=== PATIENT | male | born 1950 | race Caucasian/White ===

== ENCOUNTER → 2021-03-12 15:52 | Outpatient (CLI) | payer OTHER, MEDICAID, SELFPAY ==
--- NOTE | 2021-03-12 16:00 | DI.MRI.S_ITS ---
PROCEDURE: MR LUMBAR SPINE WO CON INDICATIONS: Low back pain, unspecified TECHNIQUE: Noncontrast sagittal T1 spin echo and T2 fast echo, sagittal STIR, axial T1 and T2 fast spin echo through the lumbar spine. In cases with scoliosis, additional coronal T2 fast spin echo may be performed. COMPARISON: [facility], , CT ABDOMEN/PELVIS WITH CONTRAST, 02/15/2005, 9:07. [facility], CR, XR LUMBAR SPINE 2 OR 3 VIEWS, 02/12/2021, 10:16. FINDINGS: Image quality: Motion artifact is present on multiple sequences, limiting areas of fine detail evaluation. Alignment and Curvature: There is minimal leftward curvature of lumbar spine with apex at L4. There is grade 1 retrolisthesis, 4 mm of L3 on L4 , 1-2 mm of L4 on L5 and grade 1 anterolisthesis of L5 on S1, 5 mm. Partially visualized posterior fusion is present from T11 through L1. Bone Marrow: Marrow is of normal overall signal. There is a focus of decreased signal within the mid and superior portion of the L1 vertebral body demonstrating heterogeneously increased T2 and STIR signal. This area was normal on the 2004 CT exam. Moderate reactive endplate changes are present at L4-5 and L5-S1 with Schmorl's nodes at the endplate. No acute vertebral body compression fractures. Spinal Cord: Conus medullaris terminates at the L1-L2 level. Visualized cord demonstrates normal signal and size. Paraspinous Soft Tissues: No paravertebral masses. Left renal cyst is noted. Discs: Moderate to severe desiccation is present throughout the lumbar spine most severe at L2-3. L1-L2: Mild disc bulge with [id number] spinal stenosis. Moderate left and minimal to mild right foraminal narrowing with facet and ligamentum flavum hypertrophy. L2-L3: Mild disc bulge with minimal canal narrowing. No foraminal narrowing with facet and ligamentum flavum hypertrophy. L3-L4: Mild disc bulge with moderate spinal stenosis. Moderate bilateral foraminal narrowing with facet and ligamentum flavum hypertrophy. L4-L5: Mild disc bulge with moderate spinal stenosis. Severe right and moderate left foraminal narrowing with facet and ligamentum flavum hypertrophy. L5-S1: Mild disc bulge with moderate to severe spinal stenosis. Severe bilateral foraminal narrowing, right greater than left with mild compression of the exiting L5 nerve roots bilaterally, right greater than left. Facet and ligamentum flavum hypertrophy are present. IMPRESSION: 1. Multilevel spinal stenosis most severe at L5-S1 secondary to disc bulge with contributing effect of facet/ligamentum flavum arthropathy. 2. Multilevel foraminal narrowing severe at L4-5 and L5-S1 secondary to facet arthropathy with contributing effect of anterior and retrolisthesis. 3. Focus of hypointense T1 and heterogeneous T2 signal at L1. While this is suspected to be a developing Schmorl's node, given proximity to endplate and disc space, it could also represent heterogeneous hemangioma. It is considered indeterminate. Contrast study is recommended for further evaluation. Dictated by: Nicolasa William M.D. on 03/13/2021 at 12:02 Approved by: Nicolasa William M.D. on 03/13/2021 at 12:13
== END ==
PROVIDERS: Family Provider Family Medicine; Referring Provider Orthopaedic Surgery; Visit Provider Orthopaedic Surgery
DX: M48.061 Spinal stenosis, lumbar region without neurogenic claudication (principal); M48.07 Spinal stenosis, lumbosacral region; M47.816 Spondylosis without myelopathy or radiculopathy, lumbar region; M47.817 Spondylosis without myelopathy or radiculopathy, lumbosacral region; M51.26 Other intervertebral disc displacement, lumbar region
CPT/HCPCS: 72148

== ENCOUNTER 2021-04-11 12:00 | Emergency (ER) | payer OTHER, MEDICAID, SELFPAY ==
[2021-04-11] VITALS (7 sets, daily range): BP systolic 127–147; BP diastolic 74–86; PULSE 71–81; RESP 12–23; TEMP 36.2; O2SAT 97–99
--- NOTE | 2021-04-11 12:27 | DI.RAD.S_ITS ---
PROCEDURE: XR RIBS LT MIN 3V W CXR1V INDICATIONS: fall rib pain TECHNIQUE: Two views of the left ribs were acquired, along with a single view chest. COMPARISON: [facility], , XR CXR 2V, 02/16/2006, 10:38. FINDINGS: Surgical changes and devices: Extensive postsurgical changes are redemonstrated status post fixation in the thoracolumbar spine. Bones and chest wall: There is a mildly displaced fracture of the left lateral 9th rib and probable fracture of the adjacent 10th rib. No suspicious bony lesions. Overlying soft tissues appear unremarkable. Lungs and pleura: No pleural effusions or pneumothorax. Lungs appear clear. Mediastinum: Mediastinal contours appear normal. Heart size is normal. IMPRESSION: 1. Mildly displaced fractures of the left lateral 9th and 10th ribs. Dictated by: Efra Dai M.D. on 04/11/2021 at 13:09 Approved by: Efra Dai M.D. on 04/11/2021 at 13:11
--- NOTE | 2021-04-11 12:27 | DI.RAD.S_ITS ---
PROCEDURE: XR ANKLE RT MIN 3V INDICATIONS: fall swelling TECHNIQUE: 3 views of the ankle were acquired. COMPARISON: [facility], , ANKLE 3 VIEWS RIGHT, 08/15/2006, 9:20. FINDINGS: Bones: No definite acute fracture or dislocation. Extensive postsurgical changes are redemonstrated status post fusion of the tibiotalar joint as well as partial fusion of the distal tibial fibular syndesmosis and subtalar joint. Surgical screws appear unchanged in position without new suspicious lucencies. Soft tissues: There is new periarticular soft tissue swelling. Achilles tendon appears intact. IMPRESSION: 1. No definite acute fracture or dislocation. 2. Extensive postsurgical changes and fusion of the ankle as described. Dictated by: Efra Dai M.D. on 04/11/2021 at 12:22 Approved by: Efra Dai M.D. on 04/11/2021 at 12:31
--- NOTE | 2021-04-11 12:27 | DI.CT.S_ITS ---
PROCEDURE: CT HEAD/BRAIN WO CON INDICATIONS: frequent falls TECHNIQUE: Noncontrast 4.5 mm thick angled axial sections acquired from the foramen magnum to the vertex, with coronal and sagittal reformats. For radiation dose reduction, the following was used: automated exposure control, adjustment of mA and/or kV according to patient size. COMPARISON: None. FINDINGS: Image quality: Excellent. CSF spaces: Basal cisterns are patent. No extra-axial fluid collections. The ventricles are symmetric in size and shape. There is mild cerebral volume loss, with resultant ventricular and sulcal prominence. Brain: No intracranial hemorrhage, mass, or mass effect. There are subcortical, periventricular and deep white matter hypodensities consistent with mild a chronic small vessel ischemic changes. The costello-white matter junction appears preserved. There is intracranial internal carotid artery atherosclerosis. Skull and face: Calvarium and visualized facial bones appear intact, without suspicious lesions. Sinuses: Visualized sinuses demonstrate mild mucosal thickening in the right maxillary sinus. Mastoid air cells are clear. IMPRESSION: 1. No acute intracranial abnormality. 2. Mild chronic white matter small vessel ischemic changes and cerebral volume loss. Dictated by: Efra Dai M.D. on 04/11/2021 at 12:04 Approved by: Efra Dai M.D. on 04/11/2021 at 12:06
--- NOTE | 2021-04-11 12:27 | DI.RAD.S_ITS ---
PROCEDURE: XR FOOT RT MIN 3V INDICATIONS: swelling injury TECHNIQUE: 3 views of the foot were acquired. COMPARISON: [facility], , ANKLE 3 VIEWS RIGHT, 08/15/2006, 9:20. [facility], CR, XR ANKLE RT MIN 3V, 04/11/2021, 12:52. FINDINGS: Bones: No definite acute fractures or dislocations. There is severe degeneration of the 1st metatarsophalangeal joint with joint space narrowing, subchondral sclerosis, osteophytosis, and subchondral cystic changes. However bony irregularity is demonstrated along the articular surface of the 1st metatarsal head. This may reflect sequelae of osteoarthritic changes but an inflammatory arthropathy or septic joint cannot be excluded. Limited evaluation of the ankle redemonstrates postsurgical changes consistent with prior fusion of the tibiotalar joint. Partial fusion also demonstrated at the distal tibiofibular syndesmosis and along the subtalar joint. There is an area of sclerosis within the distal tibial shaft which appears increased compared to the previous study and may reflect a bone infarct. Soft tissues: There is periarticular soft tissue swelling at the 1st metatarsophalangeal joint. No suspicious soft tissue calcifications. IMPRESSION: 1. No definite acute fracture or dislocation. 2. 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 Bony irregularity along the articular surface of the 1st metatarsal head raises the possibility of an inflammatory arthropathy or septic arthritis. Recommend correlation clinically. 3. Extensive postsurgical changes of the ankle redemonstrated. Dictated by: Efra Dai M.D. on 04/11/2021 at 13:03 Approved by: Efra Dai M.D. on 04/11/2021 at 13:09
--- NOTE | 2021-04-11 12:31 | ED_ITS ---
HPI - Fall General Chief Complaint: Trauma Stated Complaint: RT ANKLE PAIN POST FALL Time Seen by Provider: 04/11/21 12:21 Source: patient Mode of arrival: Wheelchair History of Present Illness HPI Narrative: Patient is a 70-year-old male who presents after fall. He states he fell last night getting into his 5th wheel he has significant right ankle pain and swelling. He is not sure exactly how that happened. He fell 2 nights ago as w ell landing on his left ribs. His ribs hurt as well. Hurts every time he breathes or moves. No chest pain. He denies any dizziness. He is not sure if he hit his head. He is not on any anti-platelet or anticoagulation medication in fact he does not go to the doctor. He denies any alcohol use or drug use except for marijuana. Related Data Previous Rx's Medication Instructions Recorded hydrocodone 5 mg-acetaminophen 325 1 tab PO Q6H PRN #10 tab 04/11/21 mg tablet Allergies Allergy/AdvReac Type Severity Reaction Status Date / Time No Known Drug Allergies Allergy Verified 04/11/21 12:07 Review of Systems Constitutional Constitutional: Denies body ache(s), Denies chills and Denies lethargy ENT Ears, Nose, Mouth, and Throat: Denies vertigo and Denies dizziness Cardiovascular Cardiovascular: Denies chest pain, Denies chest pain at rest and Denies irregular heart rhythm Respiratory Respiratory: Denies cough and Reports pain on inspiration Musculoskeletal Musculoskeletal: Reports system reviewed and no additional complaints, except as documented Integumentary/Breasts Skin/Breast: Denies erythema, Denies rash and Reports wounds (Contusion left rib) Neurologic Neurologic: Denies vertigo and Denies dizziness Patient History Social History Smoking Status: Former smoker Smoking Status: Former smoker alcohol intake frequency: 0-2 drinks per day Substance Use Type: marijuana Exam Initial Vital Signs Initial Vital Signs: Vital Signs Temperature 97.1 F L 04/11/21 12:03 Pulse Rate 77 04/11/21 12:03 Respiratory Rate 16 04/11/21 12:03 Blood Pressure 147/74 H 04/11/21 12:03 Pulse Oximetry 99 04/11/21 12:03 GENERAL: Alert 70-year-old male HEENT: Head atraumatic,EOMI, pupils reactive, face symmetric, moist mucous membranes CARDIOVASCULAR: Regular rate and rhythm without murmurs, rubs or gallops. RESPIRATORY: Breath sounds equal bilaterally, no wheezes rales or rhonchi. Left lower lateral ribs contusion no paradoxical movement tender to touch touch ABDOMEN: Soft, nontender. Normoactive bowel sounds all 4 quadrants. No guarding or rebound. : No CVA tenderness EXTREMITIES: Normal range of motion, no clubbing or edema. Neurovascularly intact. Right lower extremity ankle and foot significantly swollen very tender to touch distal pedal pulse intact. Knee in are stable non tender. NEUROLOGICAL: Alert and oriented x4.Normal gait and speech. 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 Scores GCS [place] coma scale eye opening: Spontaneous [place] coma scale verbal response: Orientated [place] coma scale motor response: Obey commands Macho coma scale total score: 15 Course Orders Ordered: ED Orders 04/11/21 12:27 CT head/brain wo con Stat XR ankle RT min 3V Stat XR foot RT min 3V Stat XR ribs LT min 3V w CXR1V Stat 04/11/21 12:28 EKG-12 Lead Stat 04/11/21 13:35 Complete Blood Count AUTO DIFF Stat Comprehensive Metabolic Panel Stat ETOH [Ethanol (ETOH)] Stat Lipase Stat Troponin & CK Cardiac Panel Stat 04/11/21 13:46 Lactate (Lactic Acid) Stat Partial Thromboplastin Time Stat Prothrombin Time INR Stat Discontinued Medications Ketorolac Tromethamine (Ketorolac 30 Mg/Ml Vial) 15 mg IV NOW ONE Stop: 04/11/21 12:28 Last Admin: 04/11/21 14:13 Dose: 15 mg Documented by: ROCKOR Vital Signs Vital signs: Vital Signs - 8 hr 04/11/21 12:03 04/11/21 13:26 04/11/21 13:30 Temperature 97.1 F L Pulse Rate 77 74 77 Respiratory Rate 16 13 12 Blood Pressure 147/74 H Pulse Oximetry 99 99 98 04/11/21 14:00 04/11/21 14:15 04/11/21 14:30 Temperature Pulse Rate 74 71 81 Respiratory Rate 12 13 23 Blood Pressure 127/76 134/86 Pulse Oximetry 97 99 99 04/11/21 14:45 Temperature Pulse Rate 73 Respiratory Rate 21 Blood Pressure 127/79 Pulse Oximetry 99 MDM - Fall Lab Data Result diagrams: 04/11/21 13:35 04/11/21 13:35 Labs: Lab Results 04/11/21 04/11/21 04/11/21 Range/Units 13:35 13:35 13:35 WBC 7.3 (4.5-11.0) X10^3/uL RBC 4.57 (4.5-5.9) X10^6/uL Hgb 13.1 L (13.5-17.5) g/dL Hct 38.7 L (41-53) % MCV 84.5 (80-100) fL MCH 28.7 (26-34) PG MCHC 33.9 (30-36) % RDW 14.1 (11.6-14.8) % Plt Count 301 (150-400) X10^3/uL Neut % (Auto) 52.8 (50-75) % Lymph % (Auto) 26.0 (25-40) % [place] % (Auto) 18.9 H (3-14) % Eos % (Auto) 1.8 L (2-4) % Baso % (Auto) 0.5 (0-2) % Neut # (Auto) 3800 (7647-0152) /uL Lymph # (Auto) 1900 (3521-6674) /uL [place] # (Auto) 1400 H (0-900) /uL Eos # (Auto) 100 (0-450) /uL Baso # (Auto) 0 (0-100) /uL PT (10.1-12.7) SECONDS INR (0.9-1.3) APTT (26.4-36.2) SECONDS Sodium 137 (137-145) mmol/L Potassium 4.3 (3.4-5.1) mmol/L Chloride 98 (98-107) mmol/L Carbon Dioxide 31 (22-32) mmol/L BUN 12 (9-20) mg/dL Creatinine 0.68 (0.66-1.25) mg/dL Estimated GFR > 60.0 (>60) mL/min BUN/Creatinine Ratio 17.6 (6-22) Glucose 95 (80-110) mg/dL Lactate (0.7-2.1) mmol/L Calcium 9.3 (8.4-10.2) mg/dL Total Bilirubin 0.4 (0.2-1.3) mg/dL AST 25 (17-59) IU/L ALT 15 (<50) IU/L Alkaline Phosphatase 71 (38-126) U/L Total Creatine Kinase 95 (55-170) U/L CK-MB (CK-2) TNP CK-MB (CK-2) Rel Index TNP Troponin I < 0.012 (0.01-0.034) ng/mL Total Protein 8.1 (6.3-8.2) g/dL Albumin 4.4 (3.5-5.0) g/dL Globulin 3.7 (1.7-4.1) g/dL Albumin/Globulin Ratio 1.2 (1.0-2.8) Lipase 26 (23-300) U/L Ethyl Alcohol < 10 ( - 10) mg/dL 04/11/21 04/11/21 Range/Units 13:46 13:46 WBC (4.5-11.0) X10^3/uL RBC (4.5-5.9) X10^6/uL Hgb (13.5-17.5) g/dL Hct (41-53) % MCV (80-100) fL MCH (26-34) PG MCHC (30-36) % RDW (11.6-14.8) % Plt Count (150-400) X10^3/uL Neut % (Auto) (50-75) % Lymph % (Auto) (25-40) % [place] % (Auto) (3-14) % Eos % (Auto) (2-4) % Baso % (Auto) (0-2) % Neut # (Auto) (9698-9056) /uL Lymph # (Auto) (4436-7542) /uL [place] # (Auto) (0-900) /uL Eos # (Auto) (0-450) /uL Baso # (Auto) (0-100) /uL PT 11.4 (10.1-12.7) SECONDS INR 1.0 (0.9-1.3) APTT 27 (26.4-36.2) SECONDS Sodium (137-145) mmol/L Potassium (3.4-5.1) mmol/L Chloride (98-107) mmol/L Carbon Dioxide (22-32) mmol/L BUN (9-20) mg/dL Creatinine (0.66-1.25) mg/dL Estimated GFR (>60) mL/min BUN/Creatinine Ratio (6-22) Glucose (80-110) mg/dL Lactate 1.2 (0.7-2.1) mmol/L Calcium (8.4-10.2) mg/dL Total Bilirubin (0.2-1.3) mg/dL AST (17-59) IU/L ALT (<50) IU/L Alkaline Phosphatase (38-126) U/L Total Creatine Kinase (55-170) U/L CK-MB (CK-2) CK-MB (CK-2) Rel Index Troponin I (0.01-0.034) ng/mL Total Protein (6.3-8.2) g/dL Albumin (3.5-5.0) g/dL Globulin (1.7-4.1) g/dL Albumin/Globulin Ratio (1.0-2.8) Lipase (23-300) U/L Ethyl Alcohol ( - 10) mg/dL Imaging Data CT scan - head: Radiologist's Impression: PROCEDURE:? CT HEAD/BRAIN WO CON ? INDICATIONS:? frequent falls ? TECHNIQUE:? Noncontrast 4.5 mm thick angled axial sections acquired from the foramen magnum to the vertex, with coronal and sagittal reformats.? For radiation dose reduction, the following was used:? automated exposure control, adjustment of mA and/or kV according to patient size.? ? COMPARISON:? None. ? FINDINGS:? Image quality:? Excellent.? ? CSF spaces:? Basal cisterns are patent.? No extra-axial fluid collections.? The ventricles are symmetric in size and shape.? There is mild cerebral volume loss, with resultant ventricular and sulcal prominence.? ? Brain:? No intracranial hemorrhage, mass, or mass effect.? There are subcortical, periventricular and deep white matter hypodensities consistent with mild a chronic small vessel ischemic changes.? The costello-white matter junction appears preserved.? There is intracranial internal carotid artery atherosclerosis.? ? Skull and face:? Calvarium and visualized facial bones appear intact, without suspicious lesions.? ? Sinuses:? Visualized sinuses demonstrate mild mucosal thickening in the right maxillary sinus.? Mastoid air cells are clear. ? IMPRESSION:? ? 1. No acute intracranial abnormality. ? 2. Mild chronic white matter small vessel ischemic changes and cerebral volume loss.? ? ? Dictated by: Efra Dai M.D. on 04/11/2021 at 12:04 ?? Extremity x-ray #1: Radiologist's Impression: PROCEDURE:? XR FOOT RT MIN 3V ? INDICATIONS:? swelling injury ? TECHNIQUE:? 3 views of the foot were acquired.? ? COMPARISON:? [facility], ANKLE 3 VIEWS RIGHT, 08/15/2006, 9:20.? [facility], XR ANKLE RT MIN 3V, 04/11/2021, 12:52. ? FINDINGS:? ? Bones:? No definite acute fractures or dislocations.? There is severe degeneration of the 1st metatarsophalangeal joint with joint space narrowing, subchondral sclerosis, osteophytosis, and subchondral cystic changes.? However bony irregularity is demonstrated along the articular surface of the 1st metatarsal head.? This may reflect sequelae of osteoarthritic changes but an inflammatory arthropathy or septic joint cannot be excluded.? Limited evaluation of the ankle redemonstrates postsurgical changes consistent with prior fusion of the tibiotalar joint.? Partial fusion also demonstrated at the distal tibiofibular syndesmosis and along the subtalar joint.? There is an area of sclerosis within the distal tibial shaft which appears increased compared to the previous study and may reflect a bone infarct. ? Soft tissues:? There is periarticular soft tissue swelling at the 1st metatarsophalangeal joint.? No suspicious soft tissue calcifications. ? IMPRESSION:? ? 1. No definite acute fracture or dislocation. ? 2. 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 Bony irregularity along the articular surface of the 1st metatarsal head raises the possibility of an inflammatory arthropathy or septic arthritis.? Recommend correlation clinically. ? 3. Extensive postsurgical changes of the ankle redemonstrated. ? ? Dictated by: Efra Dai M.D. on 04/11/2021 at 13:03 ? ? Extremity x-ray #2: Radiologist's Impression: PROCEDURE:? XR ANKLE RT MIN 3V ? INDICATIONS:? fall swelling ? TECHNIQUE:? 3 views of the ankle were acquired.? ? COMPARISON:? [facility], , ANKLE 3 VIEWS RIGHT, 08/15/2006, 9:20. ? FINDINGS:? ? Bones:? No definite acute fracture or dislocation.? Extensive postsurgical changes are redemonstrated status post fusion of the tibiotalar joint as well as partial fusion of the distal tibial fibular syndesmosis and subtalar joint.? Surgical screws appear unchanged in position without new suspicious lucencies. ? Soft tissues:? There is new periarticular soft tissue swelling.? Achilles tendon appears intact.? ? IMPRESSION:? ? 1. No definite acute fracture or dislocation. ? 2. Extensive postsurgical changes and fusion of the ankle as described. ? ? Dictated by: Efra Dai M.D. on 04/11/2021 at 12:22 ? ? Chest x-ray: Radiologist's Impression: PROCEDURE:? XR RIBS LT MIN 3V W CXR1V ? INDICATIONS:? fall rib pain ? TECHNIQUE:? Two views of the left ribs were acquired, along with a single view chest.? ? COMPARISON:? [facility], , XR CXR 2V, 02/16/2006, 10:38. ? FINDINGS:? ? Surgical changes and devices:? Extensive postsurgical changes are redemonstrated status post fixation in the thoracolumbar spine.? ? Bones and chest wall:? There is a mildly displaced fracture of the left lateral 9th rib and probable fracture of the adjacent 10th rib.? No suspicious bony lesions.? Overlying soft tissues appear unremarkable.? ? Lungs and pleura:? No pleural effusions or pneumothorax.? Lungs appear clear.? ? Mediastinum:? Mediastinal contours appear normal.? Heart size is normal.? ? IMPRESSION:? ? 1. Mildly displaced fractures of the left lateral 9th and 10th ribs. ? ? Dictated by: Efra Dai M.D. on 04/11/2021 at 13:09 ? ? ECG Data Interpretation: Sinus rhythm rate 67 ID interval 202 QRS [address] changes no T-wave inversions no priors to compare Q-wave noted in AVF and lead 3 MDM Narrative Medical decision making narrative: The patient's right foot and ankle are quite swollen however it appears that he has arthritis and previous surgery no complications found on x-rays. He is found to have rib fractures 9 and 10. Blood work is overall reassuring. He is taught about incentive spirometer by Respiratory. He is given pain control and crutches for discharge home. Discharge Plan Departure Patient Disposition: Home Clinical Impression: Closed rib fracture, Ankle sprain Instructions: Ankle Sprain, DI for Rib Fracture Activity Restrictions/Additional Instructions: *You have been diagnosed with rib fractures 9 and 10, right ankle sprain *What to do: You broke 2 ribs. Use incentive spirometer 10 times every hour to help prevent pneumonia. Use pillow for splinting. Use crutches as needed *Continue to take medications as directed [place] 1 tablet every 6 hours if needed for severe pain--> SENT TO [facility] *Follow up with your primary care provider in 2-3 days *Return to ER if you should have increasing pain, shortness of breath, numbness, tingling, weakness, recurrent falls, or any new, worsening or concerning symptoms CONTROLLED SUBSTANCE DISCHARGE (Narcotoic/benzodiazepine/Flexeril/Phenergan) 1. You have been prescribed narcotic medications, it does have acetaminophen/Tylenol/paracetamol in it, DO NOT TAKE MORE THAN 4,00mg in 24 hours of Tylenol. TRAMADOL DOES NOT CONTAIN TYLENOL 2. Please understand that we cannot provide further refills of narcotics, benzodiazepines or controlled substances through the ED and her pain management will need to be through your provider. 3. While on these medications you cannot drive or operate heavy machinery. 4. You cannot sign legal documents or perform any duties such as this. 5. As long as you're taking opiate pain medications he should also be taking a stool softener such as Colace, Dulcolax, MiraLAX or prune juice, to help avoid constipation. Prescriptions: New hydrocodone-acetaminophen 5-325 mg tablet 1 tab PO Q6H PRN (Reason: pain) Qty: 10 0RF Referrals: [facility] [Provider Group] [facility] [Outside]
[2021-04-11 13:43] LABS: Add Manual Diff / Slide Review NO; Basophils Absolute Auto 0 /uL (0-100); Basophils Percent Auto 0.5 % (0-2); Eosinophils Absolute Auto 100 /uL (0-450); Eosinophils Percent Auto 1.8 % (2-4); Hematocrit 38.7 % (41-53); Hemoglobin 13.1 g/dL (13.5-17.5); Lymphocytes Absolute Auto 1900 /uL (1100-4500); Mean Corpuscular HGB Conc 33.9 % (30-36); Mean Corpuscular Hemoglobin 28.7 PG (26-34); Mean Corpuscular Volume 84.5 fL (80-100); Monocytes Absolute Auto 1400 /uL (0-900); Monocytes Percent Auto 18.9 % (3-14); Neutrophils Absolute Auto 3800 /uL (1500-7000); Neutrophils Percent Auto 52.8 % (50-75); Platelet Count 301 X10^3/uL (150-400); Red Blood Cell Count 4.57 X10^6/uL (4.5-5.9); Red Cell Distribution Width 14.1 % (11.6-14.8); White Blood Cell Count 7.3 X10^3/uL (4.5-11.0)
[2021-04-11 13:56] LABS: Alanine Aminotransferase 15 IU/L (<50); Albumin 4.4 g/dL (3.5-5.0); Albumin Globulin Ratio 1.2 (1.0-2.8); Alkaline Phosphatase 71 U/L (38-126); Aspartate Aminotransferase 25 IU/L (17-59); BUN Creatinine Ratio 17.6 (6-22); Bilirubin Total 0.4 mg/dL (0.2-1.3); Blood Urea Nitrogen 12 mg/dL (9-20); Calcium 9.3 mg/dL (8.4-10.2); Carbon Dioxide 31 mmol/L (22-32); Chloride 98 mmol/L (98-107); Creatine Kinase 95 U/L (55-170); Estimated Glomerular Filt Rate > 60.0 mL/min (>60); Globulin 3.7 g/dL (1.7-4.1); Glucose 95 mg/dL (80-110); HEMOLYSIS < 15 (0-50); Lipase 26 U/L (23-300); Potassium 4.3 mmol/L (3.4-5.1); Sodium 137 mmol/L (137-145); Total Protein 8.1 g/dL (6.3-8.2)
[2021-04-11 14:04] LABS: Prothrombin Time 11.4 SECONDS (10.1-12.7)
[2021-04-11 14:06] LABS: PTT Partial Thromboplastin Tim 27 SECONDS (26.4-36.2)
[2021-04-11 14:08] LABS: Ethanol (ETOH) < 10 mg/dL; Troponin I < 0.012 ng/mL (0.01-0.034)
[2021-04-11 14:08] LABS: Lactate (Lactic Acid) 1.2 mmol/L (0.7-2.1)
[2021-04-11] MEDS: KETOROLAC 30 MG/ML VIAL 15 MG IV (14:13)
--- NOTE | 2021-04-11 14:45 | PC.NURSE ---
RT in room provided incentive spirometer and education, further education provided on splinting. Crutches adjusted to pt height and training provided.
== END 2021-04-11 14:55 | disposition home or self-care (01) ==
PROVIDERS: Emergency Provider Emergency Medicine; Family Provider Family Medicine
DX: S22.42XA Multiple fractures of ribs, left side, initial encounter for closed fracture (principal); S93.401A Sprain of unspecified ligament of right ankle, initial encounter; R03.0 Elevated blood-pressure reading, without diagnosis of hypertension; W18.30XA Fall on same level, unspecified, initial encounter; Z91.81 History of falling
CPT/HCPCS: 36415; 70450; 71101; 73610; 73630; 80053; 80320; 82550; 83605; 83690; 84484; 85025; 85610; 85730; 93005; 93010; 96374; 99284; 99285; J1885

== ENCOUNTER → 2021-11-26 14:18 | Outpatient (CLI) | payer OTHER, MEDICAID, SELFPAY ==
--- NOTE | 2021-11-26 | DI.MRI.S_ITS ---
PROCEDURE: MR KNEE LT WO CON INDICATIONS: Pain in left knee TECHNIQUE: Noncontrast sagittal PD fast spin echo and T2 fast spin echo with fat saturation, sagittal 3-D FLASH with fat saturation; coronal T1 spin echo and PD fast spin echo with fat saturation, and axial PD fast spin echo with fat saturation through the knee. COMPARISON: [facility] [place], CR, XR KNEE 4+ VIEWS LEFT, 08/12/2021, 15:20. FINDINGS: Image quality: Suboptimal due to motion artifacts. Menisci: There is medial meniscal extrusion and complex tear of the posterior horn and body of the medial meniscus. There is intrasubstance degeneration of the anterior horn of the medial meniscus. There is tear in free edge of the body of the lateral meniscus. A radial tear is noted in the posterior horn of the lateral meniscus. There is intrasubstance degeneration of the anterior horn of the lateral meniscus. Cruciate ligaments: There is partial tear of the ACL which is small and demonstrates heterogeneously increased signal intensity. The posterior cruciate ligament appears intact. Medial structures: The medial collateral ligament appears intact. The semimembranosus tendon insertions and meniscocapsular junction appear intact. Visualized portions of the pes anserinus tendons appear normal. No abnormal bursal fluid. Lateral structures: The lateral collateral ligament and the biceps femoris tendon appear intact. The popliteus tendon appears normal. Iliotibial band appears normal. Anterior structures: The quadriceps and patellar tendons appear intact. Patellar alignment is normal. No femoral trochlear dysplasia or ventral trochlear prominence. No edema in the infrapatellar fat pad. Bones and cartilage: No bone marrow contusions or fractures. There is tricompartmental cartilage thinning and fibrillation, most pronounced in the medial femorotibial compartment with denuded weight-bearing articular surface. There is a large full-thickness cartilage defect in the medial femoral condyle (series 12, image 22). Subchondral edema and sclerotic changes are seen in the medial femoral condyle and medial tibial plateau Joint space: There is moderate knee joint effusion. There is a large Earl's cyst. Small synovial or ganglion cysts are seen in the posterior superior knee joint. Normal appearing synovial plicae are incidentally noted. IMPRESSION: 1. Medial meniscal extrusion and complex tear of the posterior horn and body of the medial meniscus. 2. Tear of the body and posterior horn of the lateral meniscus. 3. Suspect partial tear of ACL. 4. Tricompartmental cartilage thinning and fibrillation, most pronounced in the medial femorotibial compartment with denuded weight-bearing articular surface and subchondral edema and sclerosis in medial femoral condyle and medial tibial plateau. 5. Moderate knee joint effusion. 6. A large Earl cyst. Dictated by: Sheila Naranjo M.D. on 11/26/2021 at 16:03 Approved by: Sheila Naranjo M.D. on 11/26/2021 at 16:20
== END ==
PROVIDERS: Family Provider Family Medicine; Referring Provider Orthopaedic Surgery; Visit Provider Orthopaedic Surgery
DX: S83.232A Complex tear of medial meniscus, current injury, left knee, initial encounter (principal); S83.282A Other tear of lateral meniscus, current injury, left knee, initial encounter; M25.462 Effusion, left knee; M71.22 Synovial cyst of popliteal space [Baker], left knee; M25.562 Pain in left knee
CPT/HCPCS: 73721

== ENCOUNTER → 2021-12-12 09:10 | Outpatient (CLI) | payer OTHER, MEDICAID, SELFPAY ==
[2021-12-12 10:14] LABS: Appearance Urine UA CLEAR; Bilirubin Urine UA NEGATIVE (NEGATIVE); Color Urine UA YELLOW; Glucose Urine UA NEGATIVE (Negative); Ketones Urine UA NEGATIVE (NEGATIVE); Leukocyte Esterase Urine UA NEGATIVE (NEGATIVE); Nitrite Urine UA NEGATIVE (Negative); Occult Blood Urine UA NEGATIVE (Negative); Protein Urine UA NEGATIVE (Negative); Urobilinogen Urine UA 0.2 E.U./dL (0.2); pH Urine UA 7.5 (4.5-8.0)
[2021-12-12 10:34] LABS: RBC Urine None Seen (0-5/HPF); WBC Urine None Seen (0-5/HPF)
[2021-12-12 10:35] LABS: Bacteria Urine None Seen; Culture Indicated Urine Cult Not Indicated; Urine Comments Microscopic Normal
[2021-12-12 11:13] LABS: Add Manual Diff / Slide Review NO; Basophils Absolute Auto 0 /uL (0-100); Basophils Percent Auto 0.7 % (0-2); Eosinophils Absolute Auto 200 /uL (0-450); Eosinophils Percent Auto 3.6 % (2-4); Hematocrit 34.3 % (41-53); Hemoglobin 11.5 g/dL (13.5-17.5); Lymphocytes Absolute Auto 1800 /uL (1100-4500); Lymphocytes Percent Auto 28.7 % (25-40); Mean Corpuscular HGB Conc 33.6 % (30-36); Mean Corpuscular Hemoglobin 29.3 PG (26-34); Mean Corpuscular Volume 87.2 fL (80-100); Monocytes Absolute Auto 900 /uL (0-900); Monocytes Percent Auto 14.3 % (3-14); Neutrophils Absolute Auto 3300 /uL (1500-7000); Neutrophils Percent Auto 52.7 % (50-75); Platelet Count 325 X10^3/uL (150-400); Red Blood Cell Count 3.93 X10^6/uL (4.5-5.9); Red Cell Distribution Width 14.1 % (11.6-14.8); White Blood Cell Count 6.2 X10^3/uL (4.5-11.0)
[2021-12-12 11:30] LABS: BUN Creatinine Ratio 20.8 (6-22); Blood Urea Nitrogen 15 mg/dL (9-20); Carbon Dioxide 30 mmol/L (22-32); Chloride 98 mmol/L (98-107); Estimated Glomerular Filt Rate > 60 mL/min (>60); Glucose 99 mg/dL (80-110); HEMOLYSIS < 15 (0-50); Potassium 4.3 mmol/L (3.4-5.1); Sodium 136 mmol/L (137-145)
[2021-12-12 11:39] LABS: Hemoglobin A1C% w Est Avg Glu 5.6 % (4.0-6.0)
== END ==
PROVIDERS: Family Provider Family Medicine; Referring Provider Orthopaedic Surgery; Visit Provider Orthopaedic Surgery
DX: Z01.818 Encounter for other preprocedural examination (principal); R73.9 Hyperglycemia, unspecified; Z01.812 Encounter for preprocedural laboratory examination; N39.0 Urinary tract infection, site not specified
CPT/HCPCS: 36415; 80048; 81001; 83036; 85025; 93005

== ENCOUNTER → 2022-03-01 16:12 | Outpatient (CLI) | payer OTHER, MEDICAID, SELFPAY ==
[2022-03-01 17:29] LABS: COVID19 -Nasal RAPID Negative (Negative)
== END ==
PROVIDERS: Family Provider Family Medicine; Referring Provider Orthopaedic Surgery; Visit Provider Orthopaedic Surgery
DX: Z20.822 Contact with and (suspected) exposure to COVID-19 (principal)
CPT/HCPCS: 87635; C9803

== ENCOUNTER 2022-03-02 12:53 | Day surgery (SDC) | payer OTHER, MEDICAID, SELFPAY ==
[2022-02-24 10:50] VITALS: BMI 31.8
[2022-03-02] VITALS (13 sets, daily range): BP systolic 108–144; BP diastolic 69–96; PULSE 62–77; RESP 10–18; TEMP 36.1–36.6; O2SAT 92–99; BMI 31.8
--- NOTE | 2022-03-02 08:00 | DI.RAD.S_ITS ---
PROCEDURE: XR KNEE LT 1TO2V INDICATIONS: Prosthesis placement, total left knee TECHNIQUE: 2 view(s) of the knee acquired. COMPARISON: [facility] [place], XR KNEE 4+ VIEWS LEFT, 08/12/2021, 15:20. FINDINGS: Bones: Patient is status post knee joint arthroplasty. Hardware components are in expected positions. Visualized bony structures are intact. Soft tissues: Overlying postoperative changes are noted. IMPRESSION: Status post left total knee arthroplasty. No evidence for acute hardware complication. Expected postoperative soft tissue changes. Dictated by: Dajuan Crowe M.D. on 03/03/2022 at 9:12 Approved by: Dajuan Crowe M.D. on 03/03/2022 at 9:13
[2022-03-02] MEDS: ACETAMINOPHEN 325 MG TABLET 975 MG PO (13:38)
[2022-03-02] MEDS: CELECOXIB 200 MG CAPSULE PO (13:38)
[2022-03-02] MEDS: VANCOMYCIN 1,000 MG/200 ML PIGGYBACK 200 MG IV (13:38)
[2022-03-02] MEDS: PREGABALIN 75 MG CAPSULE PO (13:39)
--- NOTE | 2022-03-02 13:43 | PM.PREOP ---
Pre-operative Note COVID-19 COVID-19 status: Negative Interval Note History & Physical reviewed/Exam performed by Physician: Yes Changes to H&P: No
--- NOTE | 2022-03-02 13:45 | P.OP_ITS ---
Operative Date/Time/Diagnoses Date of procedure: 03/02/22 Time of procedure: 14:00 Pre-op diagnosis: left knee OA Post-op diagnosis: same Procedure & Clinicians Procedure: Left total knee arthroplasty Same procedure as scheduled: Yes Indications: The patient has had progressively worsening left knee pain with radiographic changes consistent with arthritis. Non-operative management has failed and the patient has requested total knee replacement. The risks, benefits and alternatives to surgery were discussed with the patient prior to proceeding. Risks discussed included, but were not limited to, failure to relieve pain, stiffness, infection, nerve damage, deep venous thrombosis, pulmonary embolism, stroke, coma, heart attack, permanent paralysis and , as well as the potential need for eventual revision of the prosthetic. Surgeon: Ina Kidd Area Operations Director: Guerline Garcia Anesthesia Type: General and Spinal Operative Notes Findings: Severe left knee medial compartment especially in the medial compartment, adequate bone, adequate stability Closure Type: primary Specimen(s): none sent Prosthetic devices, grafts, tissues, transplants, or devices: Kidd and Nephew Linda BCS 2 femur 7, tibia 7, patella 38, +11 poly Estimated Blood Loss (mL): 250 Blood products transfused: none Tourniquet time (min): 87 Procedure in detail: The patient was seen in the pre-operative area, where the patient identified the left knee as the operative site and this was marked with my initials. The patient received pre-operative antibiotics, and was taken to the operating room and placed on the operative table in the supine position. After satisfactory anesthesia, a full stack software developer out was performed. The left leg was encircled with a tourniquet about the proximal thigh, and the leg was prepared from the toes to the tourniquet with ChloroPrep in the usual fashion and draped through sterile drapes. The leg was elevated and exsanguinated with Eschmark bandage and the tourniquet inflated to [250] mmHg pressure. The knee was approached through an approximately 18 cm incision centered over the patella and carried into the knee through a medial parapatellar arthrotomy. A portion of the medial and lateral meniscus was resected. Soft tissue was carefully mobilized around the patella the patella was measured with a caliper. Bone was resected from the patella and the patellar height was reconstituted with up an appropriate sized patellar component. A cover was then placed on the patella. A small amount of additional medial and lateral meniscus was resected. The distal femur was cut at 5?. A [+2] cut was used. It looked like an appropriate distal femoral cut and the cut was made without difficulty. An extramedullary guide was used for the tibial cut. 10 mm was resected off the least affected side.The tibia was prepared. The rotation was assessed. The patient was placed in extension residual medial and lateral meniscus as well as any residual bone was carefully resected. [No] additional tibia was resected. Hemostasis was achieved especially posteriorly. Additional local was injected into the posterior capsule. The extension gap was assessed and additional releas es for gap balancing were performed as necessary. It was checked with the gap paper wrapping machine operator. The femoral component was trial was placed and the notch was finished. The rotation was assessed and the appropriate size femoral guide was placed on the distal femur and finishing cuts were made. There was no evidence of notching. The anterior, posterior and chamfer cuts were then made. The posterior osteophytes and soft tissues were then removed. The posterior capsule was injected with part of a mixture of 60 ml 0.25% Marcaine mixed with 20 ml Exparel for post operative pain control. The remainder of this mixture was injected into the capsule and subcutaneous tissues during cement curing. The tibial and femoral components were then placed and the knee placed through a range of motion. Range of motion was [0-130], with good stability throughout the range. The trials were then removed, and the tibia was finished. The bone was prepared with pulsatile lavage, and dried with a sponge. Cement was applied and the final prosthetics placed. Excess cement was removed during and after cement curing. A brief Betadine soak was performed. After confirming there was no extruded cement posteriorly, the final tibial insert was placed. The knee was copiously irrigated and the tourniquet deflated. Hemostasis was obtained with the Bovie cautery. The capsule was closed with interrupted nonabsorbable suture. The subcutaneous layer was closed with barbed sutures, and the skin with a running 3-0 V-Lock suture and Surgical glue. An Aquacel Ag dressing was applied and the patient was taken to recovery having tolerated the procedure well. Complications: none Post-operative Condition: stable Disposition: Acute Care Plan for aftercare: The patient will be maintained on a standard total knee replacement protocol with weight bearing as tolerated. The patient will receive aspirin and sequential compression devices for DVT prophylaxis. The patient will be discharged home when safe for the home environment.
[2022-03-02] MEDS: CEFAZOLIN 2 GM/100 ML PREMIX 100 ML IV ×2 (14:35→21:41)
[2022-03-02] MEDS: TRANEXAMIC ACID 1,000 MG VIAL 1000 MG INJ ×2 (14:43→16:13)
--- NOTE | 2022-03-02 14:51 | SUR.OPER ---
Supine on padded OR bed. Pillow under head, arms secured on padded armboards <90 degree abduction. Safety belt across torso. Non-operative leg secured with tape over blanket over lower leg. Operative leg secured in DeMayo/Bib/Nathe positioner. Foam padded brace at thigh of operative leg.
[2022-03-02] MEDS: BUPIVACAINE LIPOSOME 266 MG/20 ML VIAL INJ (14:59)
[2022-03-02] MEDS: BUPIVACAINE 0.25% (PF) 60 ML, EPINEPHrine 0.3 MG INJ (15:00)
[2022-03-02] MEDS: LACTATED RINGERS 1,000 ML 42 ML IV (16:10)
[2022-03-02] MEDS: LACTATED RINGERS 1,000 ML 100 ML IV (18:24)
[2022-03-02] MEDS: IBUPROFEN 400 MG TABLET PO ×2 (19:56→23:47)
[2022-03-02] MEDS: OXYCODONE IR 5 MG TABLET PO (19:56)
[2022-03-02] MEDS: DOCUSATE 100 MG CAPSULE PO (21:41)
[2022-03-02] MEDS: ASPIRIN EC 81 MG TABLET PO (21:41)
[2022-03-02] MEDS: OXYCODONE IR 10 MG TABLET PO (23:47)
[2022-03-02] MEDS: ACETAMINOPHEN 325 MG TABLET 650 MG PO (23:47)
[2022-03-03] VITALS: BP 156/95; PULSE 66; RESP 22; TEMP 36.5; O2SAT 93
[2022-03-03 04:00] VITALS: BP 130/80; PULSE 83; RESP 17; TEMP 36.7; O2SAT 94
[2022-03-03] MEDS: LACTATED RINGERS 1,000 ML 100 ML IV (04:18)
[2022-03-03] MEDS: CEFAZOLIN 2 GM/100 ML PREMIX 100 ML IV (05:10)
[2022-03-03] MEDS: OXYCODONE IR 10 MG TABLET PO (06:26)
[2022-03-03] MEDS: ACETAMINOPHEN 325 MG TABLET 650 MG PO ×2 (06:27→11:36)
[2022-03-03] MEDS: IBUPROFEN 400 MG TABLET PO ×3 (06:27→12:38)
--- NOTE | 2022-03-03 07:10 | PM.DS.1 ---
History of Present Illness History of Present Illness Date Patient Seen: 03/03/22 Time Patient Seen: 07:10 Chief complaint: OPB Narrative: Operative Date/Time/Diagnoses Date of procedure: 03/02/22 Time of procedure: 14:00 Pre-op diagnosis: left knee OA Post-op diagnosis: same Procedure & Clinicians Procedure: Left total knee arthroplasty Same procedure as scheduled: Yes Indications: The patient has had progressively worsening left knee pain with radiographic changes consistent with arthritis. Non-operative management has failed and the patient has requested total knee replacement. The risks, benefits and alternatives to surgery were discussed with the patient prior to proceeding. Risks discussed included, but were not limited to, failure to relieve pain, stiffness, infection, nerve damage, deep venous thrombosis, pulmonary embolism, stroke, coma, heart attack, permanent paralysis and , as well as the potential need for eventual revision of the prosthetic. Surgeon: Ina Kidd It Support Specialist: Guerline Garcia Anesthesia Type: General and Spinal Operative Notes Findings: Severe left knee medial compartment especially in the medial compartment, adequate bone, adequate stability Closure Type: primary Specimen(s): none sent Prosthetic devices, grafts, tissues, transplants, or devices: Kidd [employer] Nephew [place] BCS 2 femur 7, tibia 7, patella 38, +11 poly Estimated Blood Loss (mL): 250 Blood products transfused: none Tourniquet time (min): 87 Discharge Providers Provider Discharge Date: 03/03/22 Primary care physician: Doctor Talia MD Consults: 03/02/22 08:00 Consult to Anesthesiology Routine Comment: Consulting Provider: Anesthesiologist Reason for consultation: Regional block for post operative pain control 03/02/22 17:27 Consult to Discharge Planning Routine Comment: Consult to Physical Therapy Evaluate & Treat Comment: Physician Instructions: postop TKA protocol Consult to Respiratory Therapy Evaluate & Treat Comment: Physician Instructions: Evaluate and treat Discharge provider: Ruth Mckee PA-C Summary Hospital Course Discharge Diagnosis: Left knee osteoarthritis, s/p left total knee arthroplasty Hospital Course: Mr Hutchins's hospital course was unremarkable. On POD# 1 he was feeling well and wanted to go home. He was eating and voiding without difficulty and his pain was well-controlled on oral medication. He was evaluated by PT prior to discharge. Exam Vital Signs (past 8 hours): - 03/03/22 00:00 03/03/22 04:00 Temperature 97.7 F 98.1 F Pulse Rate 66 83 Respiratory Rate 22 17 Blood Pressure 156/95 H 130/80 Pulse Oximetry 93 94 Oxygen Flow Rate 0 Oxygen Delivery Method Nasal Cannula Oxygen Flow Rate 0 Narrative Exam Narrative: 5/5 strength in hip flexors, quadriceps, hamstrings, DF, PF, EHL on left. Sensation to light touch intact throughout LLE. Calves soft, compressible, nontender and without palpable cords or masses. Aquacel dressing CDI. PFSH Social History household members: significant other Smoking Status: Former smoker alcohol intake: former Discharge Assessment & Plan Assessment and Plan Assessment: Left knee osteoarthritis, s/p left total knee arthroplasty Plan of Treatment: Discharge home after PT if PT agrees. Pt on methadone through Dr Villarreal @ [facility]; will discharge with oxycodone #[address] Villarreal and ask him to take over opioid prescribing after this. ASA 81 mg BID x 6 weeks for VTE prophylaxis, outpt PT, f/u in 2 weeks. Discharge Plan Discharge Plan Patient Disposition: Home Discharge orders & Medications Discharge Orders: Discharge (Order); Ordered 03/03/22 Ordered By: Ruth Mckee Prescriptions: New acetaminophen 325 mg Tablet 650 mg PO Q6HR PRN (Reason: fever or pain) Qty: 240 0RF aspirin 81 mg Tablet,Delayed Release (Dr/Ec) 81 mg PO BID Qty: 1 0RF Rx Instructions: BID X 6 WEEKS FOR VTE PROPHYLAXIS ibuprofen 400 mg Tablet 400 mg PO Q4HR PRN (Reason: fever or pain) Qty: 120 0RF oxycodone 5 mg Tablet 5 mg PO Q4H PRN (Reason: pain, severe) Qty: 40 0RF Follow up/Referrals: Miscellaneous,DoctorMD [Primary Care Provider] - Ina Kidd MD [Physician] - As previously scheduled (Follow up w/ Dr Kidd on 03/17/2022 @ 9:30 am at [facility] in [place].) Trenton Villarreal MD [Non-Staff] - 1 Week (Dr Villarreal will take over opioid prescribing after discharge prescription runs out.) Diet/Activity/Treatments Diet: Diet as Tolerated Activity: Walk frequently! Cold/Heat Therapy: Ice to knee as needed for pain. Skin/Wound/Dressing Care Report to your healthcare provider any signs of infection, such as:: chills, fever, night sweats, unusual drainage and unusual redness Dressing: May remove SUNG wrap and shower. Leave Aquacel dressing in place until follow up appointment. Visit Report/Discharge Packet Instructions: DI for Knee Replacement Stand Alone Forms: Surgery Discharge Discharge Data Primary Care Provider: Talia,Doctor Attending Provider: Ina Kidd VTE Deep Vein Thrombosis/Pulmonary Embolism Present on Admission: No
[2022-03-03 07:48] VITALS: BP 130/78; PULSE 67; RESP 18; TEMP 36.9; O2SAT 94
[2022-03-03] MEDS: OXYCODONE IR 5 MG TABLET PO ×2 (09:15→12:38)
[2022-03-03] MEDS: ASPIRIN EC 81 MG TABLET PO (09:16)
[2022-03-03] MEDS: polyethylene glycoL 3350 17 GM POWD.PACK PO (09:16)
[2022-03-03] MEDS: DOCUSATE 100 MG CAPSULE PO (09:16)
--- NOTE | 2022-03-03 09:45 | PT.IIE ---
Current Diagnoses Unilateral primary osteoarthritis, left knee (03/02/22) Surgery Performed Operation Date: 03/02/22 14:15 Actual Procedures p Total Knee Arthroplasty(Left) - Ina Kidd MD Physical Therapy Inpatient Evaluation/Re-Eval M1 PT/OT-IP Prior Functional Status Start: 03/03/22 13:06 Freq: NEEDED Status: Active Protocol: Document 03/03/22 09:45 AB (Rec: 03/03/22 13:14 AB [id number]) Medical Review Prior Functional Status Medical History Reviewed Yes Communication able to make needs known Mobility and Gait pt stated that he is modified independent with all mobilities and ambulation without AD Social History Household Members significant other Living Arrangements RV Number of Floors (Floors) One Floor Number of Stairs To Enter/Railing? ramp to enter Home Environment Standard Height Toilet,Tub/ Shower,Ramp Home Equipment Straight Cane,Hand Held Shower ,Grab Bars In Shower M2 PT-IP Current Condition Start: 03/03/22 13:06 Freq: NEEDED Status: Active Protocol: Document 03/03/22 09:45 AB (Rec: 03/03/22 13:14 AB [email or web address]) Physical Therapy Current Condition Current Condition Evaluation Date 03/03/22 Treatment Diagnosis s/p L TKA; difficulty in walking Onset Date 03/02/22 M4 PT-IP Mobility and Gait Start: 03/03/22 13:06 Freq: NEEDED Status: Active Protocol: Document 03/03/22 09:45 AB (Rec: 03/03/22 13:14 AB [id number]) PT-Bed Mobility Assessment Rolling Level of Assist Standby Assistance Supine to Sit Supine to Sit Standby Assistance PT-Transfer Assessment Sit to and From Stand Sit to and from Stand Standby Assistance,Contact Guard Assistance,1 Person Assistance,Use of Upper Extremities Equipment Transfer Assistive Device Gait Belt,Front Wheeled Walker Orthotic/Prosthetic Devices or Brace: No Transfers Transfer Destination Bed,Chair Transfer Technique ambulated Transfer Ability Level of Assist Standby Assistance,Contact Guard Assistance,Use of Upper Extremities Comments Mobility Comments pt sitting on chair and agreed to do PT. completed sit to stand SBA to CGA and ambulated in room using FWW ~ 40 ft SBA to CGA. pt sat on EOB and completed sit<>supine SBA. pt step transfer to chair using FWW SBA. positioned pt on the chair. call light and table placed within reach. informed pt that he will need a FWW and pt stated that he will tell his spouse. pt stated that he has mild dementia and forget things and does not know where his FWW and if he has oupt PT scheduled. spouse stated that his significant other is a retired nurse. informed nurse that pt has memory issues and wants nurse to call his significant to inform of d/c and FWW. Nurse informed PT that pt's SO will buy a FWW at [facility]. Gait Assessment Gait Gait Assistance Required: Standby Assistance,Contact Guard Assist Distance (Feet) 40 Able to Maintain Weight Bearing Status Yes During Gait Assistive Devices Assistive Device Gait Belt,Front Wheeled Walker Orthotic/Prosthetic Devices or Brace: No Gait Deviations General Gait Pattern Antalgic,Decreased Stride Length,Decreased Feet Clearance Factors Limiting Gait Function Factors Limiting Gait Function Decreased Activity Tolerance, Decreased Strength,Difficulty Following Directions,Limited Range of Motion,Pain,Poor Balance,Poor Safety Awareness PT-Balance Assessment Sitting Balance and Reactions Static Sitting Balance Ability Normal Dynamic Sitting Balance Ability Normal Standing Balance and Reactions Static Standing Balance Ability Fair Dynamic Standing Balance Ability Fair Device Used FWW M5 PT-IP Objective Assessments Start: 03/03/22 13:06 Freq: NEEDED Status: Active Protocol: Document 03/03/22 09:45 AB (Rec: 03/03/22 13:14 AB [id number]) Orientation Orientation/Cognition Level of Alertness Alert Orientation Name,Place,Situation Safety Awareness Decreased Safety Awareness Memory Description Short Term Impaired,Intermediate Impaired Gross Range of Motion Lower Extremity ROM Assessment Left Impaired Impairments L flexion : ~ 50 deg Strength Lower Extremity Strength Assessment Left Impaired Hip 4-/5 Knee 3+/5 Coordination Assessment Gross Coordination Gross Coordination WNL Sensation Assessment Sensation Gross Sensation WNL Muscle Tone Muscle Tone WNL Yes M6 PT-IP Treatment Start: 03/03/22 13:06 Freq: NEEDED Status: Active Protocol: Document 03/03/22 09:45 AB (Rec: 03/03/22 13:14 AB [id number]) Physical Therapy Treatment Education Education Provided Precautions,Weight Bearing Status,Post-Op Packet,Safety M7 PT-IP Assessment and Plan Start: 03/03/22 13:06 Freq: NEEDED Status: Active Protocol: Document 03/03/22 09:45 AB (Rec: 03/03/22 13:14 AB [id number]) PT Summary Assessment and Plan Potential Rehabilitation Potential Good Status of Condition at Evaluation Stable Summary Impairments Pain,ROM,Strength,Balance, Coordination,Sensation,Tone, Cognition,Bed Mobility, Transfers,Gait,Activity Tolerance Assessment Summary pt requiring SBA to CGA with mobility and will have his significant other assist him at home. pt may go home when medically stable. pt will need outpt PT. Goals Bed Mobility Goal Independent Transfer Goal Independent,Front Wheeled Walker Gait Goal Independent,Front Wheel Walker Gait Distance 200 Days to Meet Goals 3 Frequency of Treatment Frequency Of Treatment Twice a Day Treatment Plan Physical Therapy Treatment Plan Bed Mobility Training,Transfer Training,Gait Training, Therapeutic Exercise,Balance Retraining,Post Op Education, Discharge Planning,Hot or Cold Pack,Neuromuscular Re-ed, Coordination Retraining,Manual Therapy Weight Bearing Status Weight Bearing Status Weight Bear as Tolerated Allowed Weight Bearing Amount (enter % LLE WBAT or #) (%) Recommendations To Nursing Amount of Assist Needed 1 Person Assist Discharge Recommendations PT Discharge Recommendations Home with Assistance, Outpatient PT Equipment Needed for Home Before FWW Discharge Transportation Needs at Discharge Private Vehicle
[2022-03-03 09:52] VITALS: O2SAT 98
[2022-03-03] MEDS: METHADONE 10 MG TABLET 25 MG PO (11:36)
[2022-03-03] MEDS: METHADONE INTENSOL 10 MG/ML ORAL.CONC 150 MG PO (11:39)
[2022-03-03 12:13] VITALS: BP 135/75; PULSE 60; RESP 18; TEMP 36.4; O2SAT 97
--- NOTE | 2022-03-03 13:21 | CM.IDA ---
Initial DCP Assessment Note Pt is a 71 yo male, resident of [place], now POD#1 from Lft knee surgery by Dr Kidd PCP: Leonor Dumont Payer: Pat MCDANIEL/NAKIA Reviewed chart, pt discussed in multidisciplinary rounds this morning. Therapy has cleared pt for return home w/family to assist and pt has planned for home, DC order from Ortho has already been initiated this morning. No barriers identified at this time to patient's safe discharge home w/family to assist; close outpatient f/u recommended. WILMA Lassiter
== END 2022-03-03 12:46 | disposition home or self-care (01) ==
LOC: OR 12:54 → AC 12:57
PROVIDERS: Family Provider Family Medicine; Referring Provider Orthopaedic Surgery; Visit Provider Orthopaedic Surgery
PROC: 0SRD0JZ Replacement of Left Knee Joint with Synthetic Substitute, Open Approach (ICD-10-PCS; CPT 27447; principal; 2022-03-02 14:15)
DX: M17.12 Unilateral primary osteoarthritis, left knee (principal)
CPT/HCPCS: 27447; 73560; 94760; 97161; C1776; C1713; C9290; J0171; J0690; J1100; J2250; J2274; J2405; J2704; J3010

== ENCOUNTER → 2022-06-21 13:22 | Outpatient (CLI) | payer OTHER, MEDICAID, SELFPAY ==
[2022-03-02 13:05] VITALS: BMI 31.8
--- NOTE | 2022-06-21 | DI.US.S_ITS ---
PROCEDURE: US EXTREMELY NONVASC UPPER RT INDICATIONS: LUMP ON UPPER ARM TECHNIQUE: Real-time scanning was performed of the right upper arm palpable mass , with image documentation. COMPARISON: None. FINDINGS: No sonographically visible mass, fluid collection or lymphadenopathy seen in the region of interest involving the right upper arm. IMPRESSION: No sonographic abnormality. Dictated by: Royce PATEL Interpreted: Ayo Doty MD on 06/21/2022 at 14:00 Approved by: Ayo Doty M.D. on 06/21/2022 at 21:18
== END ==
PROVIDERS: Family Provider Family Medicine; Referring Provider Nurse Practitioner Family; Visit Provider Nurse Practitioner Family
DX: L98.9 Disorder of the skin and subcutaneous tissue, unspecified (principal)
CPT/HCPCS: 76882

== ENCOUNTER → 2022-07-12 14:23 | Outpatient (CLI) | payer OTHER, MEDICAID, SELFPAY ==
[2022-03-02 13:05] VITALS: BMI 31.8
[2022-07-12 15:33] LABS: Add Manual Diff / Slide Review NO; Basophils Absolute Auto 0 /uL (0-100); Basophils Percent Auto 0.5 % (0-2); Eosinophils Absolute Auto 100 /uL (0-450); Eosinophils Percent Auto 2.5 % (2-4); Hematocrit 36.7 % (41-53); Hemoglobin 12.3 g/dL (13.5-17.5); Lymphocytes Absolute Auto 1400 /uL (1100-4500); Lymphocytes Percent Auto 27.2 % (25-40); Mean Corpuscular HGB Conc 33.3 % (30-36); Mean Corpuscular Hemoglobin 27.9 PG (26-34); Mean Corpuscular Volume 83.6 fL (80-100); Monocytes Absolute Auto 600 /uL (0-900); Monocytes Percent Auto 11.4 % (3-14); Neutrophils Absolute Auto 3100 /uL (1500-7000); Neutrophils Percent Auto 58.4 % (50-75); Platelet Count 397 X10^3/uL (150-400); Red Cell Distribution Width 15.8 % (11.6-14.8); White Blood Cell Count 5.3 X10^3/uL (4.5-11.0)
[2022-07-12 15:52] LABS: Blood Urea Nitrogen 12 mg/dL (9-20); Carbon Dioxide 29 mmol/L (22-32); Chloride 97 mmol/L (98-107); Estimated Glomerular Filt Rate > 60 mL/min (>60); Glucose 89 mg/dL (80-110); HEMOLYSIS < 15 (0-50); Potassium 4.2 mmol/L (3.4-5.1); Sodium 136 mmol/L (137-145)
== END ==
PROVIDERS: Family Provider Family Medicine; Referring Provider Orthopaedic Surgery; Visit Provider Orthopaedic Surgery
DX: Z01.818 Encounter for other preprocedural examination (principal); Z01.812 Encounter for preprocedural laboratory examination
CPT/HCPCS: 36415; 80048; 85025; 93005

== ENCOUNTER → 2022-07-26 11:18 | Outpatient (CLI) | payer OTHER, MEDICAID, SELFPAY ==
[2022-03-02 13:05] VITALS: BMI 31.8
--- NOTE | 2022-07-26 | DI.CT.S_ITS ---
PROCEDURE: CT SHOULDER RIGHT WITHOUT CON INDICATIONS: Primary osteoarthritis, right shoulder TECHNIQUE: Noncontrast 1-1.5 mm thick sections acquired from the acromioclavicular joint to the inferior scapula, with coronal and sagittal reformatting. COMPARISON: [facility] [place], CR, XR SHOULDER 2+ VIEWS RIGHT, 07/12/2022, 13:17. FINDINGS: Image quality: Excellent. Bones: No acute osseous fracture or dislocation. Severe degenerative changes are seen at the glenohumeral joint with full-thickness joint space narrowing, subchondral sclerosis and prominent subchondral cystic changes, marginal osteophyte formation, and remodeling of the articular surfaces. There is loss of posterior glenoid bone stock resulting in approximately 26 degrees glenoid retroversion relative to the midplane of the scapula the mid glenoid level. Moderate degenerative changes are seen at the acromioclavicular joint. Postsurgical changes in the spine are partially included. Soft tissues: Moderate glenohumeral effusion. A few small calcifications are seen within the biceps tendon sheath. There is mild generalized loss of muscle bulk within the rotator cuff musculature. However, the tendons, ligaments, labrum, and articular cartilages are not well evaluated with standard CT. The included portions of the right lung are unremarkable. IMPRESSION: 1. Severe glenohumeral osteoarthrosis as described in the body of the report. There is loss of posterior glenoid bone stock resulting in approximately 26 degrees glenoid retroversion relative to the midplane of the scapula at the mid glenoid level. 2. Moderate glenohumeral effusion. 3. Moderate acromioclavicular osteoarthrosis. Approved by: Ayo Doty M.D. on 07/26/2022 at 14:31
== END ==
PROVIDERS: Family Provider Family Medicine; Referring Provider Orthopaedic Surgery; Visit Provider Orthopaedic Surgery
DX: M19.011 Primary osteoarthritis, right shoulder (principal); M25.411 Effusion, right shoulder
CPT/HCPCS: 73200

== ENCOUNTER 2022-09-16 10:05 | Inpatient (IN) | payer OTHER, MEDICAID, SELFPAY ==
[2022-03-02 13:05] VITALS: BMI 31.8
[2022-09-13 14:45] VITALS: BMI 31.0
[2022-09-16] VITALS (9 sets, daily range): BP systolic 103–135; BP diastolic 55–78; PULSE 71–87; RESP 9–21; TEMP 36.2–36.8; O2SAT 90–98; BMI 31.0
--- NOTE | 2022-09-16 06:00 | DI.RAD.S_ITS ---
PROCEDURE: XR SHOULDER RT MIN 2V INDICATIONS: RTSA TECHNIQUE: 1 views of the shoulder were acquired. COMPARISON: [facility], , SHOULDER MINIMUM 2VIEW RIGHT, 11/01/2006, 12:57. FINDINGS: Bones: Expected alignment status post placement of reverse right shoulder arthroplasty. No periprosthetic fractures or evidence of loosening/infection. Soft tissues: No suspicious soft tissue calcifications. Multiple surgical rene. IMPRESSION: Expected immediate postoperative appearance of reversed right shoulder arthroplasty. Dictated by: Royce Ferreira [facility] Interpreted: Michele Leavitt MD on 09/16/2022 at 15:20 Transcribed by: ELOY on 09/16/2022 at 15:21 Approved by: Michele Leavitt M.D. on 09/16/2022 at 17:08
--- NOTE | 2022-09-16 10:32 | PM.OP.1 ---
Operative Date/Time/Diagnoses Date of procedure: 09/16/22 Time of procedure: 10:33 Pre-op diagnosis: Right glenohumeral arthritis Post-op diagnosis: same Procedure & Clinicians Procedure: Right anatomic total shoulder arthroplasty Same procedure as scheduled: Yes Indications: Indications: This is a 72-year-old male who has primary osteoarthritis of the glenohumeral joint. Symptoms have been present for years, insidious onset. Of note he does have a previous rotator cuff repair in the distant past. Patient has failed conservative therapy including injections, physical therapy, anti-inflammatories and activity modification. After extensive discussion in clinic, they wished to go forward with surgery. Risks and benefits were described including the risk of infection, bleeding, damage to internal structures including nerves. We also discussed the risk of failure of surgery and the need for revision surgery as well as the risk of anesthesia. The patient expressed understanding with these risks and wished to go forward with surgery. Surgeon: Donovan James Top And Seat Cover Fitter: Lowell Swift Click Yes if Unassisted: No Anesthesia Type: General Operative Notes Findings: Findings: Osteoarthritis of the glenoid and humeral head as noted on preoperative imaging and under direct visualization rotator cuff intact Closure Type: primary Specimen(s): none sent Prosthetic devices, grafts, tissues, transplants, or devices: Tornier Implants CortiLoc Pegged Glenoid UHMWPE M40 Simpliciti Nucleus Size 3 CoCr simpliciti head size 52 x 19 Estimated Blood Loss (mL): 50 Blood products transfused: none Procedure in detail: Operative note: Patient was seen in the preoperative holding unit. The correct right shoulder was identified and marked with my initials. Again we discussed the risks and benefits of surgery and they wished to go forward with surgery. The patient was brought back to the operating room and placed supine on the operating table. He underwent smooth endotracheal intubation. All prominences were padded and they were placed into the beach chair position. Intravenous antibiotics were given. The right shoulder was then prepped with the standard sterile preparation and draping. A time-out was then performed in my initials were again identified on the correct shoulder. 1 g of IV tranexamic acid was given. A standard deltopectoral incision was made. Skin flaps were made. The cephalic vein was identified and retracted laterally. This was protected throughout the remainder of the case. Sharp dissection was made along the deltoid, subacromial and subcoracoid space to release adhesions. The conjoined tendon was identified and the axillary nerve was palpated and continuous using the tug test. It was protected throughout the remainder of the case. A brown retractor was placed underneath the deltoid muscle and a darach retractor underneath the conjoint tendon. The anterior circumflex artery and associated veins on the lower border of the subscapularis were identified and tied off using 0-Vicryl. The biceps tendon was identified in the bicipital groove. This was released from its sheath, and taken from its origin on the glenoid and tied into the pectoralis tendon for a solid tenodesis. We then began a subscapularis peel. The subscapularis was tagged with an Ethibond suture. A 360 degree circumferential release of the subscapularis was performed with protection of the axillary nerve. The coracohumeral ligament was released at the base of the coracoid. The coracoacromial ligament was left intact. The shoulder was then dislocated. Osteophytes were removed using combination of rongeur and osteotome. The rotator cuff was noted to be intact. Using an oscillating saw a conservative humeral head cut was made using the patient's beaver version. The head was measured and a guide for size 3 simpliciti humeral head was used to drill a central hole followed by impaction. Attention was then turned to the glenoid. After retracting the humeral head posteriorly, release of the capsule and labrum was performed. Central guidewire was placed. The glenoid was then reamed and a size [medium]. Peripheral holes were drilled. At this point dilute Betadine wash was performed for 2 minutes. Medium viscosity cement was mixed and the drill holes were completely dried. A all polyethylene pegged glenoid was then selected, and cemented into the glenoid. Turning back to the humerus, the humeral head was delivered and 3 seperate Nice Loupes were passed through drill holes in the bicipital groove. The Size 3 nucleus was then impacted into the humerus and a size 52 by 19 stemless humeral head was placed. The shoulder was then reduced and again brought through range of motion and was felt to be stable. The interval was then closed using #2 ethibond. The subscapularis was then repaired using a modified racking hitch with niece loupes. The deltopectoral interval was then closed with #2 Ethibond. The skin was closed with 2-0 PDS and rene followed by Aquacel dressing. Patient was awoken from anesthesia and brought back to the postoperative recovery unit without issue. They were placed into a sling. Assisting participation: This operation could not have been safely performed (without compromising the technical results or length of the procedure) without the assistance of a skilled surgical device sales representative. The surgical device sales representative was medically necessary for proper positioning, retraction and manipulation of instruments, proper exposure, graft prep, and manipulation of tissue. Complications: none Post-operative Condition: stable Disposition: PACU Plan for aftercare: Postoperative instructions: Sling to remain on for 6 weeks. No external rotation past neutral for 6 weeks. Okay for sling to come off for shower and gentle pendulum exercises. Okay to shower over the Aquacel dressing. If any water gets underneath the dressing, remove the dressing. First postoperative visit in 2 weeks.
[2022-09-16] MEDS: ACETAMINOPHEN 325 MG TABLET 975 MG PO (10:43)
[2022-09-16] MEDS: CELECOXIB 200 MG CAPSULE PO (10:43)
[2022-09-16] MEDS: LACTATED RINGERS 1,000 ML 42 ML IV ×2 (10:44→13:47)
--- NOTE | 2022-09-16 11:14 | PM.PREOP ---
Pre-operative Note Interval Note History & Physical reviewed/Exam performed by Physician: Yes Changes to H&P: No
[2022-09-16] MEDS: CEFAZOLIN 2 GM/100 ML PREMIX 100 ML IV (11:39)
--- NOTE | 2022-09-16 12:26 | SUR.OPER ---
Beach chair on padded OR bed. Head on gel donut secured with tape over gauze. Non-operative arm secured <90 degrees abduction on padded arm board. Pillow under knees. Safety belt at thigh. Cloth tape over blanket over lower legs.
[2022-09-16] MEDS: TRANEXAMIC ACID 1,000 MG VIAL 2000 MG INJ (13:21)
[2022-09-16] MEDS: BUPIVACAINE 0.25% (PF) 30 ML, EPINEPHrine 0.15 MG INJ (13:29)
--- NOTE | 2022-09-16 14:40 | P.OP_ITS ---
Operative Date/Time/Diagnoses Date of procedure: 09/16/22 Time of procedure: 14:40 Pre-op diagnosis: Right glenohumeral arthritis Post-op diagnosis: same Procedure & Clinicians Procedure: Right reverse total shoulder arthroplasty with 15 degree glenoid augmented base plate Same procedure as scheduled: Yes Indications: Indications: This is a 72-year-old male who has longstanding glenohumeral arthritis. Symptoms have been present for years, insidious onset. Patient has failed conservative therapy. After extensive discussion in clinic, they wished to go forward with surgery. Risks and benefits were described including the risk of infection, bleeding, damage to internal structures including nerves. We also discussed the risk of failure of surgery and the need for revision surgery as well as the risk of anesthesia. The patient expressed understanding with these risks and wished to go forward with surgery. Surgeon: Donovan James Pocket Builder: Lowell Swift Click Yes if Unassisted: No Anesthesia Type: General Operative Notes Findings: Findings: Osteoarthritis of the glenoid and humeral head some tearing of the supraspinatus as well as extreme retroversion of the glenoid at about 40? As noted on preoperative imaging and under direct visualization Closure Type: primary Specimen(s): none sent Prosthetic devices, grafts, tissues, transplants, or devices: Tornier implants Base plate: 29 mm full 15 degree wedge with a 30 mm central post Glenosphere: 39 mm Stem: Perform 4 Poly: +6, 10 degree reversed Estimated Blood Loss (mL): 50 Blood products transfused: none Procedure in detail: Patient was seen in the preoperative holding unit. The correct right shoulder was identified and marked with my initials. The interscalene block was performed by anesthesia. Again we discussed the risks and benefits of surgery and they wished to go forward with surgery. The patient was brought back to the operating room and placed supine on the operating table. Smooth endotracheal intubation was performed by anesthesia. All prominences were padded and they were placed into the beach chair position. Intravenous antibiotics were given. The right shoulder was then prepped with the standard sterile preparation and draping. A time-out was then performed and my initials were again identified on the correct shoulder. 1 g of IV tranexamic acid was given. A standard deltopectoral incision was made. Skin flaps were made. The cephalic vein was identified and retracted laterally. This was protected throughout the remainder of the case. Sharp dissection was made along the deltoid, subacromial and subcoracoid space to release adhesions. The conjoined tendon was identified and the axillary nerve was palpated and continuous using the tug test. It was p rotected throughout the remainder of the case. A brown retractor was placed underneath the deltoid muscle and a darach retractor underneath the conjoint tendon. The anterior circumflex artery and associated veins on the lower border of the subscapularis were identified and tied off using 0-Vicryl. The biceps tendon was identified in the bicipital groove. This was released from its sheath, and taken from its origin on the glenoid and tied into the pectoralis tendon for a solid tenodesis. We then began a subscapularis peel. The subscapularis was tagged with an Ethibond suture. A 360 degree circumferential release of the subscapularis was performed with protection of the axillary nerve. The coracohumeral ligament was released at the base of the coracoid. The coracoacromial ligament was left intact. The shoulder was then dislocated. Osteophytes were removed using combination of rongeur and osteotome. The rotator cuff was noted to be torn of the supraspinatus. An intramedullary guide was used set at version of 30?. Using an oscillating saw a conservative humeral head cut was made. Impaction reamers were reamed up to a size 4 stem with a built-in angle 135?. A neck protector was placed. Attention was then turned to the glenoid. After retracting the humeral head posteriorly a circumferential release was performed of the capsule with protection of the axillary nerve. The labrum was then released starting at the biceps anchor and going around the rim a small amount of triceps was released from the inferior glenoid. A center guide pin was then placed using a custom 3D printed guide, followed by Reamer. After adequate cartilage was removed the center drill hole was drilled and measured. The boss was then drilled. The base plate was then implanted and with a 30 degree post and impacted into place. The superior drill hole was drilled and filled in a nonlocking fashion, followed by the inferior and anterior holes in locking fashion, the posterior hole was also filled. A 39 standard glenosphere was then selected and screwed into place onto the base plate. Turning back to the humerus, the humeral head was delivered and trialed with a 6 mm, 10 degree inferior offset polyethylene. The arm was taken through range of motion and this was felt to be stable. The trial was then removed and a dilute Betadine wash was then performed with 1 L of sterile saline. Before placing the final implant, drill holes were made in the bicipital groove for the subscapularis repair, and sutures were passed through the drill holes. The final stem was then impacted into the humerus. The shoulder was then reduced and again brought through range of motion and was felt to be stable. The interval was then closed using #2 Ethibond. The subscapularis was then repaired using a modified racking hitch with nice loupes. The deltopectoral interval was then closed with #2 Ethibond. The skin was closed with 2-0 PDS and rene followed by Aquacel dressing. Patient was awoken from anesthesia and brought back to the postoperative recovery unit without issue. They were placed into a sling. Assisting participation: This operation could not have been safely performed (without compromising the technical results or length of the procedure) without the assistance of a skilled surgical instrument maker. The surgical instrument maker was medically necessary for proper positioning, retraction and manipulation of instruments, proper exposure, graft prep, and manipulation of tissue. Complications: none Post-operative Condition: stable Disposition: PACU Plan for aftercare: Postoperative instructions: Sling to remain on for 6 weeks. No external rotation past neutral for 6 weeks. Okay for him to come off her shower. Okay to shower over the Aquacel dressing. If any water gets underneath the dressing, remove the dressing. First postoperative visit in 2 weeks.
[2022-09-16] MEDS: ALBUTEROL 2.5 MG/3 ML NEB (ADULT) INH (15:25)
[2022-09-16] MEDS: ONDANSETRON 4 MG/2 ML INJ (15:59)
== END 2022-09-16 16:30 | disposition home or self-care (01) | DRG 483 ==
PROVIDERS: Admitting Provider Orthopaedic Surgery; Family Provider Family Medicine; Referring Provider Orthopaedic Surgery; Visit Provider Orthopaedic Surgery
PROC: 0RRJ00Z Replacement of Right Shoulder Joint with Reverse Ball and Socket Synthetic Substitute, Open Approach (ICD-10-PCS; CPT 23472; principal; 2022-09-16 12:15)
DX: M19.011 Primary osteoarthritis, right shoulder (principal); Z87.891 Personal history of nicotine dependence; Z20.822 Contact with and (suspected) exposure to COVID-19
CPT/HCPCS: 64415; 73030; C1776; C9803; J0171; J0690; J1100; J2250; J2405; J2704; J3010; J7613

== ENCOUNTER 2023-03-07 11:31 | Emergency (ER) | payer OTHER, MEDICAID, SELFPAY ==
[2022-03-02 13:05] VITALS: BMI 31.8
[2023-03-07 11:56] VITALS: BP 114/72; PULSE 74; RESP 16; TEMP 36.6; O2SAT 96; BMI 32.5
--- NOTE | 2023-03-07 13:07 | DI.RAD.S_ITS ---
PROCEDURE: XR ELBOW RT 2V INDICATIONS: bump on elbow TECHNIQUE: 3 views of the elbow were acquired. COMPARISON: None. FINDINGS: Bones: No fractures or dislocations. No suspicious bony lesions. Soft tissues: No elbow joint effusion. Thickening of the elbow pad suggest possible olecranon bursitis. No suspicious soft tissue calcifications. IMPRESSION: Question olecranon bursitis. No evidence acute bony abnormality. If clinical suspicion and/or symptoms persist, further assessment with repeat plain films, or advanced imaging (e.g., CT, MRI, or bone scan) may be helpful for further assessment. Dictated by: Jose Sy M.D. on 03/07/2023 at 13:52 Approved by: Jose Sy M.D. on 03/07/2023 at 14:05
--- NOTE | 2023-03-07 14:07 | ED.EXTPRO ---
HPI - Extremity Problem General Chief complaint: Extremity Problem,Nontraumatic Stated complaint: lump on elbow and sore shoulder Time Seen by Provider: 03/07/23 14:03 Source: patient Mode of arrival: Ambulatory History of Present Illness HPI Narrative: 72-year-old male presents for 4-5 days of gradually worsening right elbow swelling. No trauma, denies pain. States that he likes to row for exercise. Ambidextrous. States that he is worried because his father had a lump on his elbow that turned out to be cancerous and that is why he . Related Data Home Medications Medication Instructions Recorded Confirmed methadone 10 mg/5 mL oral solution 185 mg PO DAILY 08/04/22 09/16/22 Previous Rx's Medication Instructions Recorded acetaminophen 325 mg tablet 650 mg (2 x 325 mg) PO Q6HR PRN 03/03/22 fever or pain #240 tabs ibuprofen 400 mg tablet 400 mg PO Q4HR PRN fever or pain 03/03/22 #120 tabs oxycodone 10 mg tablet 10 mg PO Q6H PRN pain #20 tabs 09/16/22 Allergies Allergy/AdvReac Type Severity Reaction Status Date / Time ketamine AdvReac Hallucinati Verified 03/07/23 11:59 ng Review of Systems Review of Systems Narrative: Negative except as noted above Patient History Medical History (Updated 03/07/23 @ 14:08 by Amanda Nelson MD) Amputated finger PTSD (post-traumatic stress disorder) Anxiety Psoriasis HTN (hypertension) Dementia Epilepsy History of drug abuse Arthritis History of COVID-19 (07/2020) Surgical History (Updated 08/04/22 @ 10:15 by Claudia Brewer RN) History of right knee surgery History of left knee surgery History of surgery History of ankle surgery History of thoracic surgery History of total left knee replacement (03/02/22) Social History household members: significant other Smoking Status: Former smoker alcohol intake: former Smoking Status: Former smoker alcohol intake frequency: 0-2 drinks per day Substance Use Type: marijuana and amphetamines Exam Initial Vital Signs Initial Vital Signs: Vital Signs Temperature 98 F 03/07/23 11:56 Pulse Rate 74 03/07/23 11:56 Respiratory Rate 16 03/07/23 11:56 Blood Pressure 114/72 03/07/23 11:56 Pulse Oximetry 96 03/07/23 11:56 Oxygen Delivery Method Room Air 03/07/23 11:56 Const: Awake, alert, no acute distress, nontoxic appearing Eyes: PERRL, EOMI, conjunctiva normal ENT: Atraumatic, edentulous Cardiac: regular rate, regular rhythm RESP: unlabored, clear bilaterally, no wheezing GI: Atraumatic, soft, nontender, nondistended, no rebound, no guarding MSK: Atraumatic, full range of motion, pulses equal, swollen olecranon bursa right elbow, no tenderness, no warmth Skin: Warm, Dry, intact, no rashes Neuro: AO x3, CN II-XII grossly intact, moves all extremities Psych: affect normal, mood normal, not suicidal, not homicidal Course Course Course Narrative: Enlarged olecranon bursa. X-rays negative for acute findings. Patient placed in Ismael wrap and advised to minimize use of the right elbow to prevent worsening swelling. PCP follow up advised. Orders Ordered: ED Orders 03/07/23 13:07 XR elbow RT 2V Stat Vital Signs Vital signs: Vital Signs - 8 hr 03/07/23 11:56 Temperature 98 F Pulse Rate 74 Respiratory Rate 16 Blood Pressure 114/72 Pulse Oximetry 96 Oxygen Delivery Method Room Air Discharge Plan Departure Patient Disposition: Home Clinical Impression: Olecranon bursitis of right elbow Instructions: DI for Bursitis Prescriptions: No Action methadone 10 mg/5 mL Solution 185 mg PO DAILY acetaminophen 325 mg Tablet 650 mg PO Q6HR PRN (Reason: fever or pain) Qty: 240 0RF ibuprofen 400 mg Tablet 400 mg PO Q4HR PRN (Reason: fever or pain) Qty: 120 0RF oxycodone 10 mg tablet 10 mg PO Q6H PRN (Reason: pain) Qty: 20 0RF Referrals: Miscellaneous,Doctor, MD [Primary Care Provider] - Stand Alone Forms: Patient Portal/API
--- NOTE | 2023-03-07 14:15 | PC.NURSE ---
applied to right elbow
== END 2023-03-07 14:16 | disposition home or self-care (01) ==
PROVIDERS: Emergency Provider Emergency Medicine; Family Provider Family Medicine
DX: M70.21 Olecranon bursitis, right elbow (principal); Y93.9 Activity, unspecified
CPT/HCPCS: 73070; 99283

== ENCOUNTER → 2023-04-18 13:35 | Outpatient (CLI) | payer OTHER, MEDICAID, SELFPAY ==
[2022-03-02 13:05] VITALS: BMI 31.8
--- NOTE | 2023-04-18 | DI.CT.S_ITS ---
PROCEDURE: CT SHOULDER RIGHT WITHOUT CON INDICATIONS: glenoid failure in right shoulder joint TECHNIQUE: Noncontrast 1-1.5 mm thick sections acquired from the acromioclavicular joint to the inferior scapula, with coronal and sagittal reformatting. COMPARISON: [facility], CR, XR SHOULDER 2+ VIEWS RIGHT, 03/28/2023, 14:28. [facility], CT, CT SHOULDER RIGHT WITHOUT CON, 07/26/2022, 11:39. FINDINGS: Image quality: Diagnostic. Significant beam hardening artifacts are seen. Bones: Patient is status post prior reverse right shoulder arthroplasty. There is significant bone loss involving glenoid surrounding the prosthesis with posteriorly dislodged glenoid prosthesis posterior to the glenohumeral joint space consistent with hardware failure. No evidence of hardware loosening in humeral prosthesis is seen. No acute fracture. No suspicious bony lesions. Moderate acromioclavicular joint osteoarthritic changes are seen. No gross abnormalities are seen in visualized right ribs. Postfusion changes in visualized lower thoracic/upper lumbar spine is seen. Soft tissues: There is suggestion of moderate joint effusion and subacromial subdeltoid bursal fluid. No definite abnormal soft tissue calcifications. No definite full-thickness rotator cuff tendon rupture. No significant rotator cuff muscle atrophy is seen on sagittal images. No abnormal soft tissue calcifications. IMPRESSION: 1. Finding is consistent with significant osteolysis involving right glenoid surrounding the prosthesis with dislodged and posteriorly displaced glenoid prosthesis. No gross hardware loosening is seen in the humeral prosthesis. 2. Moderate to large joint effusion, no calcified intra-articular loose bodies. 3. No acute shoulder fracture . Moderate acromioclavicular joint osteoarthritis. 4. No full-thickness rotator cuff tendon rupture. No significant rotator cuff muscle atrophy. Dictated by: Michele Leavitt M.D. on 04/18/2023 at 15:19 Approved by: Michele Leavitt M.D. on 04/18/2023 at 15:26
== END ==
PROVIDERS: Family Provider Family Medicine; Referring Provider Orthopaedic Surgery; Visit Provider Orthopaedic Surgery
DX: T84.028A Dislocation of other internal joint prosthesis, initial encounter (principal); Z09 Encounter for follow-up examination after completed treatment for conditions other than malignant neoplasm; Z96.611 Presence of right artificial shoulder joint; M19.011 Primary osteoarthritis, right shoulder; M25.411 Effusion, right shoulder
CPT/HCPCS: 73200

== ENCOUNTER 2023-04-22 06:02 | Inpatient (IN) | payer OTHER, MEDICAID, SELFPAY ==
[2022-03-02 13:05] VITALS: BMI 31.8
[2023-04-21 07:58] VITALS: BMI 33.0
[2023-04-22] VITALS (22 sets, daily range): BP systolic 86–138; BP diastolic 51–82; PULSE 63–92; RESP 12–92; TEMP 36.6–37.1; O2SAT 9–98; BMI 33.0
--- NOTE | 2023-04-22 | DI.RAD.S_ITS ---
PROCEDURE: XR SHOULDER RT 1V INDICATIONS: RT TOTAL SHOULDER REVISION TECHNIQUE: Single views of the shoulder were acquired. COMPARISON: [facility], CR, XR SHOULDER RT MIN 2V, 04/22/2023, 12:49. FINDINGS: Bones: Right shoulder arthroplasty components are in position. On the single given image, joint is grossly congruent. There are no visible unexpected fractures. Soft tissues: Overlying skin rene and soft tissue gas are present. IMPRESSION: Expected appearance post shoulder arthroplasty. Dictated by: Diana Rangel M.D. on 04/22/2023 at 17:46 Approved by: Diana Rangel M.D. on 04/22/2023 at 17:47
[2023-04-22] MEDS: LACTATED RINGERS 1,000 ML 42 ML IV ×2 (06:46→12:56)
[2023-04-22] MEDS: ALBUTEROL/IPRATROPIUM 3 ML AMPUL INH ×2 (06:46→14:24)
--- NOTE | 2023-04-22 06:47 | DI.RAD.S_ITS ---
PROCEDURE: XR SHOULDER RT MIN 2V INDICATIONS: TSA TECHNIQUE: 3 intraoperative fluoroscopic images COMPARISON: [facility], CR, XR SHOULDER RT MIN 2V, 09/16/2022, 14:59. FINDINGS: Three intraoperative fluoroscopic images of right shoulder arthroplasty. Please see operative report for details. IMPRESSION: Three intraoperative fluoroscopic images of right shoulder arthroplasty. Please see operative report for details. Dictated by: Chanell Vargas M.D. on 04/22/2023 at 22:15 Approved by: Chanell Vargas M.D. on 04/22/2023 at 22:16
[2023-04-22] MEDS: ACETAMINOPHEN 325 MG TABLET 975 MG PO (06:48)
--- NOTE | 2023-04-22 07:38 | PM.PREOP ---
Pre-operative Note Interval Note History & Physical reviewed/Exam performed by Physician: Yes Changes to H&P: No
--- NOTE | 2023-04-22 08:20 | SUR.PREOP ---
Block start time [0811] . Monitoring initiated and maintained throughout procedure. Oxygen and medications given per anesthesiologist instructions. Patient remained stable throughout procedure, no adverse reactions noted. Block end time [0817].
--- NOTE | 2023-04-22 08:22 | SUR.PREOP ---
Patient delayed for procedure start due to very difficult start; JAVA WEB ARCHITECT attempting multiple times to obtain IV access; Anesthesia provider also assisting with IV placement. Patient further delayed due to necessity of Ultrasound machine for nerve block placement to Right shoulder; ultrasound in use by additional anesthesia provider for a different patient. Patient into OR suite at approximately 8:25 a.m.
[2023-04-22] MEDS: CEFAZOLIN 2 GM/100 ML PREMIX 100 ML IV ×3 (08:25→16:50)
[2023-04-22] MEDS: TRANEXAMIC ACID 1,000 MG VIAL 1000 MG INJ ×2 (08:35→13:10)
--- NOTE | 2023-04-22 09:08 | SUR.OPER ---
Part one; Patient supine on skytron shoulder positioner, arms on armboards with gel under elbows and towels under wrists for support. Safety straps across thighs.
--- NOTE | 2023-04-22 09:11 | SUR.OPER ---
Addendum entered by Marisa Guadalupe R.N. 04/22/23 09:12: Part 2: Original Note: Beach chair with Skytron shoulder positioner. Lower body on padded OR bed. Head in foam padded head cradle, secured with straps. Non-operative arm secured <90 degrees abduction. Pillow under knees. Safety belt at thigh. Cloth tape over blanket over lower legs.
--- NOTE | 2023-04-22 13:51 | PM.OP.1 ---
Operative Date/Time/Diagnoses Date of procedure: 04/22/23 Time of procedure: 13:51 Pre-op diagnosis: Right failed reverse total shoulder arthroplasty Post-op diagnosis: same Procedure & Clinicians Procedure: 1. Revision right reverse total shoulder arthroplasty, glenoid and humeral component 2. 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 Preoperatively, we discussed 1 versus 2 stage. Plan going into the surgery will likely be iliac crest autograft and filling of the defect and conversion of the humeral side to a large humeral head for in effective a hemiarthroplasty. Surgeon: Donovan James [employer] Systems Technician: Malia William Anesthesia Type: General Operative Notes Findings: Findings: Complete failure of the glenoid base plate as well as pull out of the screws posteriorly from the glenoid with a large amount of glenoid bone loss. Closure Type: primary Specimen(s): other (cultures x4) Prosthetic devices, grafts, tissues, transplants, or devices: [employer] Humeral head economics department chair high offset with a size 56 by 22 cobalt chrome humeral head 2 separate 2.7 mm by 32 mm screws Estimated Blood Loss (mL): 75 Blood products transfused: none Procedure in detail: Operative note: Patient was seen in the preoperative holding unit. The correct right shoulder was identified and marked with my initials. Again we discussed the risks and benefits of surgery and they wished to go forward with surgery. The patient was brought back to the operating room and placed supine on the operating table. [he] underwent smooth endotracheal intubation. All prominences were padded and they were placed into the beach chair position. Intravenous antibiotics were given. The right shoulder and right iliac crest was then prepped with the standard sterile preparation and draping. A time-out was then performed in my initials were again identified on the correct shoulder and over the hip. 1 g of IV tranexamic acid was given. I began with a direct approach, about 5 cm down to the iliac crest. Down through fascia and to the bone. Three cortices were exposed. Using a 10 mm by 30 mm oscillating saw, a 3 cm by 3 cm wedge was harvested. Bone wax was applied over the bleeding surfaces of the crest and the sharp edges were then smoothed again with a saw. The fascia, fat layer and skin was then closed with 0 Vicryl, 2-0 Vicryl, and Monocryl and dressed with a Aquacel dressing. Turning to the right shoulder, A standard deltopectoral incision was made. Skin flaps were made. Dissection was taken down to the deltopectoral interval where previous Ethibond sutures were encountered and removed. Sharp dissection was made along the deltoid, subacromial and subcoracoid space to release adhesions. The conjoined tendon was identified and the axillary nerve was palpated and continuous using the tug test. It was protected throughout the remainder of the case. A brown retractor was placed underneath the deltoid muscle and a darach retractor underneath the conjoint tendon. We then began a subscapularis peel although it was noted that the subscapularis muscle was mostly torn. The shoulder was then dislocated. The polyethylene was then removed from the humerus. The glenosphere and base plate which were attached were then removed. Cultures at this point were obtained of the humerus the glenoid and the glenoid base plate. Attention was then turned to the glenoid. It was noted that there was a crescent of bone that was still intact anteriorly however the majority of the glenoid was gone posteriorly. After adhesions were released and exposure was obtained, a high-speed bur was used to create good bleeding edges of the bone. The defect was then measured and I turned to the back table to prepare the graft. The graft was prepared so that a cortical surface was facing laterally and a decorticated surface was facing anterior well another cortical surface was facing posterior. After it was shaped there was noted to have a good press fit within the defect. A mixture of DBM bone putty and allograft chips were then placed around the most medial edges and a little superior, and the graft was reinserted and again noted to have good press fit. I then established a posterior arthroscopy portal and using a 7 mm cannula drilled, measured, and placed 2 separate 2.7 mm screws from posterior to anterior. Fluoroscopy was used in an axillary view to assess lengths. The shoulder was then irrigated with a dilute Betadine solution and normal saline. Turning back to the humerus a humeral head economics department chair was placed in an eccentric version and a size 56 humeral head was then placed and the shoulder was reduced. The subscapularis was noted to be irreparable at this point. The deltopectoral interval was closed with #2 Ethibond, and the skin was closed with 2-0 Vicryl and rene. Assisting participation: This operation could not have been safely performed (without compromising the technical results or length of the procedure) without the assistance of a skilled surgical training specialist. The surgical training specialist was medically necessary for proper positioning, retraction and manipulation of instruments, proper exposure, graft prep, and manipulation of tissue. Due to extensive scarring from his previous surgery, complete effacement of tissue planes, stiffness, adhesions, and difficulty obtaining screws in the posterior facing graft, this procedure required significantly more time and effort, over twice of what might be expected for a shoulder replacement. Therefore, modifier 22 is appended to this procedure code to indicate the increased complexity and additional work required to complete the surgery successfully. Complications: none Post-operative Condition: stable Disposition: PACU Plan for aftercare: Postoperative instructions: Sling to remain on for 8 weeks. No external rotation past neutral. Okay for sling to come off for shower and gentle pendulum exercises. Okay to shower over the Aquacel dressing. If any water gets underneath the dressing, remove the dressing. First postoperative visit in 2 weeks.
[2023-04-22] MEDS: OXYCODONE IR 5 MG TABLET PO ×2 (14:24→18:17)
--- NOTE | 2023-04-22 16:14 | PT-IP ANOTE ---
Pt eval order received. EMR reviewed. pt just arrived to the acute floor and just wan to rest for now. Obtained PLOF and home set up and provided pt with post-op handout. will f/u tomorrow.
--- NOTE | 2023-04-22 16:32 | PC.NURSE ---
Patient arrived via bed from PACU to room 205. He is Alert, VSS, but with slight shallw breathing 02 saturation 88 to 93% on RA. He is placed on 2 LNC. He is grunting and complaining of pain to LLE. PT at bedside attempting to evaluate patient and plan for when family will be at bedside tomorrow. He states he did not know and wasn't able to participate with PT due to discomfort this evening. PIV is in his L foot and IVF clamped. No swelling or irritation noted to the site but patient reports pain is severe surrounding PIV. RN attempted x2 to get IV acess in LUE and another RN attempted to get IV access to LUE successfully. PIV to L foot dc'd. RUE in sling. Aquacel c/d/i T R Shoulder. +CMS to R hand and fingers. Cotninuous monitoring. Call light in reach, IVF running, encouraged IS use, bed alarm on, continuous pulse ox.
[2023-04-22] MEDS: IBUPROFEN 600 MG TABLET PO ×2 (16:48→21:22)
[2023-04-22] MEDS: ACETAMINOPHEN 325 MG TABLET 650 MG PO (19:03)
[2023-04-22] MEDS: HYDROMORPHONE 0.5 MG INJ IV (21:22)
[2023-04-22] MEDS: DOCUSATE 100 MG CAPSULE PO (21:22)
[2023-04-22] MEDS: ASPIRIN EC 81 MG TABLET PO (21:22)
[2023-04-22] MEDS: SENNOSIDES 8.6 MG TABLET 17.2 MG PO (21:22)
[2023-04-23] MEDS: CEFAZOLIN 2 GM/100 ML PREMIX 100 ML IV (00:10)
[2023-04-23 03:06] VITALS: BP 156/76; PULSE 68; RESP 18; TEMP 36.9; O2SAT 95
[2023-04-23] MEDS: HYDROMORPHONE 0.5 MG INJ IV (03:20)
[2023-04-23] MEDS: IBUPROFEN 600 MG TABLET PO ×2 (03:21→08:47)
[2023-04-23] MEDS: METHADONE INTENSOL 10 MG/ML ORAL.CONC 185 MG PO (08:46)
[2023-04-23] MEDS: DOCUSATE 100 MG CAPSULE PO (08:47)
[2023-04-23] MEDS: ASPIRIN EC 81 MG TABLET PO (08:47)
--- NOTE | 2023-04-23 08:52 | P.DS_ITS ---
History of Present Illness History of Present Illness Date Patient Seen: 04/23/23 Time Patient Seen: 08:52 Chief complaint: Shoulder pain Narrative: Shoulder pain is [id number]. Denies fever chills. No shortness of breath or chest pain. Discharge Providers Provider Date of admission: 04/22/23 06:02 Discharge Date: 04/23/23 Primary care physician: Doctor Talia MD Consults: 04/22/23 06:46 Consult to Anesthesiology Routine Comment: Consulting Provider: Anesthesiologist Reason for consultation: Regional block for post operative pain control 04/22/23 14:58 Consult to Discharge Planning Routine Comment: Consult to Physical Therapy Evaluate & Treat Comment: Physician Instructions: Evaluate and Treat 04/22/23 16:57 Consult to Type Rolling Machine Operator Routine Comment: Discharge provider: Lowell Swift PA-C Summary Hospital Course Discharge Diagnosis: Right failed reverse total shoulder arthroplasty Hospital Course: 1. Revision right reverse total shoulder arthroplasty, glenoid and humeral co mponent 2. 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 Preoperatively, we discussed 1 versus 2 stage. Plan going into the surgery will likely be iliac crest autograft and filling of the defect and conversion of the humeral side to a large humeral head for in effective a hemiarthroplasty. Surgeon: Donovan James Information Systems Coordinator: Malia William Anesthesia Type: General Operative Notes Findings: Findings: Complete failure of the glenoid base plate as well as pull out of the screws posteriorly from the glenoid with a large amount of glenoid bone loss. Closure Type: primary Specimen(s): other (cultures x4) Prosthetic devices, grafts, tissues, transplants, or devices: [employer] Humeral head ferry terminal supervisor high offset with a size 56 by 22 cobalt chrome humeral head 2 separate 2.7 mm by 32 mm screws Estimated Blood Loss (mL): 75 Blood products transfused: none Patient admitted to the hospital for the above-mentioned procedure. Patient c onsented to the same. Patient taken to operating room and underwent revision right reverse total shoulder arthroplasty, glenoid and humeral component as well as iliac crest bone graft autograft harvest April 22, 2023. Patient back in his room recovering well as in stable condition. Patient will work with Physical therapy this morning. Patient has assistance at home. Sling to remain on for 8 weeks. No external rotation past neutral. Okay for sling to come off for shower and gentle pendulum exercises. Okay to shower over the Aquacel dressing. If any water gets underneath the dressing, remove the dressing. First postoperative visit in 2 weeks. DC home today in stable condition. Exam Vital Signs (past 8 hours): - 04/23/23 03:06 Temperature 98.5 F Pulse Rate 68 Respiratory Rate 18 Blood Pressure 156/76 H Pulse Oximetry 95 Oxygen Flow Rate 0 Oxygen Delivery Method Room Air Oxygen Flow Rate 0 Narrative Exam Narrative: 72-year-old male resting comfortably in bed in no apparent distress. Sling is on. Dressing is clean, dry and intact. Motor functions intact right upper extremity. Sensation grossly intact to light touch right upper extremity. Const General: cooperative and comfortable Nutritional Appearance: average body habitus Orientation: alert Resp Effort & Inspection: normal respiratory effort and able to speak in complete sentences [facility] Medical History (Updated 03/22/23 @ 00:01 by ) Amputated finger PTSD (post-traumatic stress disorder) Anxiety Psoriasis HTN (hypertension) Dementia Epilepsy History of drug abuse Arthritis History of COVID-19 (07/2020) Surgical History (Updated 04/21/23 @ 08:09 by Claudia Brewer RN) 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) History of right knee surgery History of left knee surgery History of surgery History of ankle surgery History of thoracic surgery History of total left knee replacement (03/02/22) Social History household members: significant other Smoking Status: Former smoker alcohol intake: former Discharge Assessment & Plan Assessment and Plan Assessment: Stable Plan of Treatment: Sling to remain on for 8 weeks. No external rotation past neutral. Okay for sling to come off for shower and gentle pendulum exercises. Okay to shower over the Aquacel dressing. If any water gets underneath the dressing, remove the dressing. First postoperative visit in 2 weeks. Discharge Plan Discharge Plan Patient Disposition: Home Discharge orders & Medications Prescriptions: New acetaminophen 325 mg Tablet 650 mg PO Q6H PRN (Reason: Fever/Mild Pain (1-3)) Qty: 60 0RF aspirin 81 mg Tablet,Delayed Release (Dr/Ec) 81 mg PO BID Qty: 60 0RF oxycodone 5 mg Tablet 5 mg PO Q3H PRN (Reason: Pain, Moderate (4-6)) Qty: 30 0RF Continued methadone 10 mg/5 mL Solution 185 mg PO DAILY acetaminophen 325 mg Tablet 650 mg PO Q6HR PRN (Reason: fever or pain) Qty: 240 0RF ibuprofen 400 mg Tablet 400 mg PO Q4HR PRN (Reason: fever or pain) Qty: 120 0RF Follow up/Referrals: Donovan James MD [Physician] - (Follow up 2 weeks as scheduled) Doctor Melgar MD [Primary Care Provider] - Diet/Activity/Treatments Activity: Sling to remain on for 8 weeks. No external rotation past neutral. Okay for sling to come off for shower and gentle pendulum exercises. Okay to shower over the Aquacel dressing. If any water gets underneath the dressing, remove the dressing. First postoperative visit in 2 weeks. Skin/Wound/Dressing Care Report to your healthcare provider any signs of infection, such as:: chills, fever, night sweats, increased pain, unusual drainage and unusual redness Dressing: Leave dressing in place. Okay to shower over the Aquacel dressing but do not soak it. If water gets underneath the dressing okay to remove the dressing completely. Other wound treatment: Keep wound clean and dry Visit Report/Discharge Packet Instructions: DI for Prescription Opioid Use, DI for Shoulder Replacement Stand Alone Forms: Patient Portal/API, Stroke Signs & Symptoms, Surgery Discharge Discharge Data Primary Care Provider: Doctor Talia
[2023-04-23 08:56] LABS: Hematocrit 26.5 % (41-53); Mean Corpuscular HGB Conc 33.9 % (30-36); Mean Corpuscular Hemoglobin 28.7 PG (26-34); Mean Corpuscular Volume 84.6 fL (80-100); Platelet Count 392 X10^3/uL (150-400); Red Blood Cell Count 3.14 X10^6/uL (4.5-5.9); Red Cell Distribution Width 15.1 % (11.6-14.8); White Blood Cell Count 7.3 X10^3/uL (4.5-11.0)
[2023-04-23 09:11] VITALS: BP 123/67; PULSE 74; RESP 18; TEMP 37; O2SAT 92
--- NOTE | 2023-04-23 09:13 | PT.IIE ---
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) Other specified postprocedural states (04/22/23) Surgery Performed Operation Date: 04/22/23 07:45 Actual Procedures p Revision Total shoulder arthroplasty with right illiac bone graft(Right) - Donovan James MD Surgical History (Last Updated 04/21/23 @ 08:09 by Claudia Brewer RN) History of ankle surgery History of left knee surgery 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) History of right knee surgery History of surgery History of thoracic surgery History of total left knee replacement (03/02/22) Medical History (Last Updated 08/04/22 @ 10:16 by Claudia Brewer RN) Amputated finger Anxiety Arthritis Dementia Epilepsy History of COVID-19 (07/2020) History of drug abuse HTN (hypertension) Psoriasis PTSD (post-traumatic stress disorder) Physical Therapy Inpatient Evaluation/Re-Eval M1 PT/OT-IP Prior Functional Status Start: 04/22/23 16:12 Freq: NEEDED Status: Active Protocol: Document 04/23/23 09:13 AB (Rec: 04/23/23 13:03 AB [email or web address]) Medical Review Prior Functional Status Medical History Reviewed Yes Communication able to make needs known Mobility and Gait pt stated that he was independent with all mobilities and ambulation without AD Social History Household Members significant other Living Arrangements RV Number of Floors (Floors) One Floor Number of Stairs To Enter/Railing? pt has a ramp to enter Home Environment Standard Height Toilet,Tub/ Shower,Ramp Home Equipment Front Wheel Walker,Straight Cane,Hand Held Shower,Grab Bars Near Toilet,Grab Bars In Shower Additional Social History Comment pt has a recliner at home M2 PT-IP Current Condition Start: 04/22/23 16:12 Freq: NEEDED Status: Active Protocol: Document 04/23/23 09:13 AB (Rec: 04/23/23 13:03 AB [email or web address]) Physical Therapy Current Condition Current Condition Evaluation Date 04/23/23 Treatment Diagnosis s/p R TSA reverse revision; difficulty in walking Onset Date 04/22/23 M3 PT-IP Subjective Start: 04/22/23 16:12 Freq: NEEDED Status: Active Protocol: Document 04/23/23 09:13 AB (Rec: 04/23/23 13:03 [email or web address]) Subjective Physical Therapy Visit Type Type Initial Evaluation Visit Start Time 09:13 Visit Stop Time 10:00 Total Visit Minutes 47 Number of PARTNERSHIP DEVELOPMENT MANAGER Visits 0 Physical Therapy Visit Comments Patient Comments agreeable to do PT Therapy Pain Assessment Pain When Pain Assessed At Rest Pain Present Pain Present Pain Reported Location Right Hip Intensity 10 Scale Used Numeric (0 - 10) Pain Management Techniques Apply Cold,Distraction, Modification of Treatment,Re- positioning,Timing of Activity with Medications Right Shoulder Intensity 7 Scale Used Numeric (0 - 10) Pain Management Techniques Apply Cold,Distraction, Modification of Treatment,Re- positioning,Timing of Activity with Medications M4 PT-IP Mobility and Gait Start: 04/22/23 16:12 Freq: NEEDED Status: Active Protocol: Document 04/23/23 09:13 (Rec: 04/23/23 13:03 [email or web address]) PT-Bed Mobility Assessment Supine to Sit Supine to Sit Maximum Assistance,Head of Bed Elevated,Bedrails PT-Transfer Assessment Sit to and From Stand Sit to and from Stand Contact Guard Assistance, Minimal Assistance,1 Person Assistance,Use of Upper Extremities Equipment Transfer Assistive Device Gait Belt,Straight Cane Orthotic/Prosthetic Devices or Brace: No Transfers Transfer Destination Toilet Transfer Technique ambulated Transfer Ability Level of Assist Contact Guard Assistance, Minimal Assistance,Maximum Assistance,1 Person Assistance ,Use of Upper Extremities Comments Mobility Comments pt supine in bed. pt provided with post-op handout. pt educated on shoulder precautions and NWB precaution . also educated on elbow/ wrist/hand exercises. nurse informed that pt has to go to the pain clinic before 1 pm to be able to get his pain meds. nurse will contact spouse. informed pt that PT needs to do training with spouse prior to d/c for safety . pt initially refusing and stated that spouse was a nurse before and knows what to do. informed pt that PT still wants to do training to be sure since pt's current surgery is a revision and has failed previous shoulder sx. pt stated that the first surgery did not work because nobody told him that he was not suppose to use his R shoulder. Pt agreed to do caregiver training. pt completed supine to sit max A and max cues with HOB elevated. pt with c/o increase R hip pain. pt with R hip side bone graft for shoulder sx/repair. pt stated that he will sleep on his recliner for now and he has been doing so for awhile due to shoulder issue. pt able to sit on EOB SBA. educated on sling management. completed elbow/hand/wrist exercises. completed sling adjustment. pt completed sit to stand min A and was only able to take 2 steps without AD max A. instructed pt to sit back on EOB. opted to use SPC at this time for safety. pt completed sit to stand again CGA and ambulated to the toilet per pt 's request min A initially but midway, able to ambulate CGA. pt was able to maintain standing to complete toileting SBA. pt ambulated to the chair using SPC CGA. educated pt on safety . pt completed sit to stand from the chair SBA and ambulated in room ~ 30 ft using SPC SBA to CGA. c/o increase R hip pain and presents with antalgic gait. pt sat back on chair. positioned pt on the chair. call light and table placed within reach. nurse to informed PT when spouse arrives to be able to do training prior to d/c. Gait Assessment Gait Gait Assistance Required: Standby Assistance,Contact Guard Assist,Minimum Assistance Distance (Feet) 30 Able to Maintain Weight Bearing Status Yes During Gait Assistive Devices Assistive Device Gait Belt,Straight Cane Orthotic/Prosthetic Devices or Brace: Yes Gait Deviations General Gait Pattern Antalgic,Decreased Stride Length,Decreased Feet Clearance,Step-to Gait Factors Limiting Gait Function Factors Limiting Gait Function Decreased Activity Tolerance, Decreased Strength,Limited Range of Motion,Pain,Poor Balance,Poor Safety Awareness PT-Balance Assessment Sitting Balance and Reactions Static Sitting Balance Ability Normal Dynamic Sitting Balance Ability Good Standing Balance and Reactions Static Standing Balance Ability Fair Dynamic Standing Balance Ability Poor Device Used without AD M5 PT-IP Objective Assessments Start: 04/22/23 16:12 Freq: NEEDED Status: Active Protocol: Document 04/23/23 09:13 AB (Rec: 04/23/23 13:03 AB [id number]) Orientation Orientation/Cognition Level of Alertness Alert Orientation Name,Place,Situation Language Function Ability Hard of Hearing Safety Awareness Decreased Safety Awareness Gross Range of Motion Lower Extremity ROM Assessment Within Functional Limits Strength Lower Extremity Strength Assessment Within Functional Limits Muscle Tone Muscle Tone WNL Yes M6 PT-IP Treatment Start: 04/22/23 16:12 Freq: NEEDED Status: Active Protocol: Document 04/23/23 09:13 AB (Rec: 04/23/23 13:03 AB [id number]) Physical Therapy Treatment Education Education Provided Precautions,Weight Bearing Status,Post-Op Packet,Safety Brace Education Donning,Toast,Patient M7 PT-IP Assessment and Plan Start: 04/22/23 16:12 Freq: NEEDED Status: Active Protocol: Document 04/23/23 09:13 AB (Rec: 04/23/23 13:03 AB [email or web address]) PT Summary Assessment and Plan Potential Rehabilitation Potential Fair Status of Condition at Evaluation Evolving Summary Impairments Pain,ROM,Strength,Balance, Coordination,Sensation,Tone, Cognition,Bed Mobility, Transfers,Gait,Activity Tolerance Assessment Summary pt is a 72 y/o M who had R TSA reverse last 09/16/22 but underwent revision yesterday. pt requiring max A for bed mobility but pt will be sleeping on his recliner for now for safety. pt needing CGA to min A for transfers and ambulation using SPC. Caregiver training will be conducted once spouse comes in . pt will need outpt PT. Goals Bed Mobility Goal Independent Transfer Goal Independent,Cane Gait Goal Independent,Cane Gait Distance 200 Days to Meet Goals 5 Frequency of Treatment Frequency Of Treatment Twice a Day Treatment Plan Physical Therapy Treatment Plan Bed Mobility Training,Transfer Training,Gait Training, Therapeutic Exercise,Balance Retraining,Post Op Education, Discharge Planning,Hot or Cold Pack,Neuromuscular Re-ed, Coordination Retraining,Manual Therapy Precautions Shoulder Precautions Sling,PROM,Internal Rotation to Body,No External Rotation, No Abduction,Forward Flexion to 90 degrees,Pendulums Weight Bearing Status Weight Bearing Status Non-Weight Bearing Allowed Weight Bearing Amount (enter % NWB RUE or #) (%) Recommendations To Nursing Amount of Assist Needed 1 Person Assist Discharge Recommendations PT Discharge Recommendations Home with 29/11 Assist Available,Outpatient PT Transportation Needs at Discharge Private Vehicle
[2023-04-23] MEDS: OXYCODONE IR 5 MG TABLET PO (11:40)
--- NOTE | 2023-04-23 11:50 | PT.IPTN ---
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) Other specified postprocedural states (04/22/23) Surgery Performed Operation Date: 04/22/23 07:45 Actual Procedures p Revision Total shoulder arthroplasty with right illiac bone graft(Right) - Donovan James MD Physical Therapy Treatment Note M2 PT-IP Current Condition Start: 04/22/23 16:12 Freq: NEEDED Status: Active Protocol: Document 04/23/23 09:13 AB (Rec: 04/23/23 13:03 AB [id number]) Physical Therapy Current Condition Current Condition Evaluation Date 04/23/23 Treatment Diagnosis s/p R TSA reverse revision; difficulty in walking Onset Date 04/22/23 M3 PT-IP Subjective Start: 04/22/23 16:12 Freq: NEEDED Status: Active Protocol: Document 04/23/23 11:50 AB (Rec: 04/23/23 13:11 AB [id number]) Subjective Physical Therapy Visit Type Type Treatment Note Visit Start Time 11:50 Visit Stop Time 12:00 Total Visit Minutes 10 Number of PUBLIC SAFETY POLICE Visits 0 M4 PT-IP Mobility and Gait Start: 04/22/23 16:12 Freq: NEEDED Status: Active Protocol: Document 04/23/23 11:50 AB (Rec: 04/23/23 13:11 AB [id number]) PT-Transfer Assessment Sit to and From Stand Sit to and from Stand Standby Assistance Comments Mobility Comments pt sitting on the chair and spouse in room. caregiver training conducted. educated spouse on pt's shoulder precautions. educated spouse on sling management and how to assist pt. spouse stated that she has been assisting pt with his sling after his previous surgery. instructed spouse on management sling. spouse initiated but was not able to properly sanjuanita sling to pt. educated spouse on sling mangement. spouse then sanjuanita sling on pt and completed. instructed pt to ambulate in room and spouse to assist if needed. pt completed sit to stand SBA but only able to take a few step forward/ backwars ~ 3 ft using SPC SBA and stated that he has increase R hip pain and does not want to walk if he does not need to. stated that spouse just assisted him to the toilet before PT arrived. pt and spouse without further concerns. left pt on the chair . spouse in room. call light and table within reach. informed nurse that pt is awaiting d/c. Gait Assessment Gait Gait Assistance Required: Standby Assistance Distance (Feet) 3 Able to Maintain Weight Bearing Status Yes During Gait Assistive Devices Assistive Device Gait Belt,Straight Cane Orthotic/Prosthetic Devices or Brace: Yes Gait Deviations General Gait Pattern Antalgic Factors Limiting Gait Function Factors Limiting Gait Function Decreased Activity Tolerance, Decreased Strength,Difficulty Following Directions,Limited Range of Motion,Pain,Poor Balance,Poor Safety Awareness M5 PT-IP Objective Assessments Start: 04/22/23 16:12 Freq: NEEDED Status: Active Protocol: Document 04/23/23 09:13 AB (Rec: 04/23/23 13:03 AB [id number]) Orientation Orientation/Cognition Level of Alertness Alert Orientation Name,Place,Situation Language Function Ability Hard of Hearing Safety Awareness Decreased Safety Awareness Gross Range of Motion Lower Extremity ROM Assessment Within Functional Limits Strength Lower Extremity Strength Assessment Within Functional Limits Muscle Tone Muscle Tone WNL Yes M6 PT-IP Treatment Start: 04/22/23 16:12 Freq: NEEDED Status: Active Protocol: Document 04/23/23 11:50 AB (Rec: 04/23/23 13:11 AB [id number]) Physical Therapy Treatment Education Education Provided Precautions,Weight Bearing Status,Post-Op Packet,Safety M7 PT-IP Assessment and Plan Start: 04/22/23 16:12 Freq: NEEDED Status: Active Protocol: Document 04/23/23 11:50 AB (Rec: 04/23/23 13:11 AB [id number]) PT Summary Assessment and Plan Potential Rehabilitation Potential Fair Summary Impairments Pain,ROM,Strength,Balance, Coordination,Sensation,Tone, Cognition,Bed Mobility, Transfers,Gait,Activity Tolerance Progress Towards Goals Slow Progress - Other Assessment Summary caregiver training conducted. Recommending pt to use SPC for mobility and to sleep on his recliner for now due to increase difficulty doing bed mobility. pt will also need outpt PT. Goals Bed Mobility Goal Independent Transfer Goal Independent,Cane Gait Goal Independent,Cane Gait Distance 200 Days to Meet Goals 5 Frequency of Treatment Frequency Of Treatment Twice a Day Treatment Plan Physical Therapy Treatment Plan Bed Mobility Training,Transfer Training,Gait Training, Therapeutic Exercise,Balance Retraining,Post Op Education, Discharge Planning,Hot or Cold Pack,Neuromuscular Re-ed, Coordination Retraining,Manual Therapy Precautions Shoulder Precautions Sling,PROM,Internal Rotation to Body,No External Rotation, No Abduction,Forward Flexion to 90 degrees,Pendulums Weight Bearing Status Weight Bearing Status Non-Weight Bearing Allowed Weight Bearing Amount (enter % NWB RUE or #) (%) Recommendations To Nursing Amount of Assist Needed 1 Person Assist Discharge Recommendations PT Discharge Recommendations Home with 29/11 Assist Available,Outpatient PT Transportation Needs at Discharge Private Vehicle
--- NOTE | 2023-04-23 15:19 | CM.DANOTE ---
Reviewed EMR and team rounds for pt's medical status. Met with pt at bedside to introduce self and role. Pt is scheduled to d/c later this am, his significant other will plan to transport. No anticipated home d/c needs identified at this time. Payor: [facility] Medicare Advantage Attending: Dr. James Pt is a 72 year-old M admitted following a revision of his right reverse total shoulder arthroplast that failed. Pt has been medically cleared for d/c, plan is for him to remain in the shoulder sling for 8-weeks, no recommended OP therapies at this time, Ortho f/u visit in 2-weeks. No further anticipated DCP needs identified at this time. Discharge Planning/Care Management CM Discharge Assessment Start: 04/23/23 15:16 Freq: Status: Discharge Protocol: Document 04/23/23 15:17 DPL (Rec: 04/23/23 15:19 DPL [id number]) Discharge Planning Assessment Assigned Excel Specialist WILMA Gray Advance Directives? No History Provided By Patient,Medical Record Has Patient been admitted in last 30 No days? Prior Living Arrangements RV Household Members significant other Type of transporation used prior to Drives own vehicle admit Independent with ADL's Yes Is patient alert and oriented? Yes Caregiver for Another No Comment No anticipated home d/c needs identified. Barriers to Discharge No Discharge Plan Home Transportation Arrangement Significant Other. Referrals Initiated None needed Additional Comment Pt will f/u in 2-weeks with Ortho, at which point he will discuss OP therapy recommendations. Whiteboard Updated in Patient Room with Yes name and ext. # of Excel Specialist Review Status In Process Please Provide Date Initial DC 04/23/23 Assessment Was Performed Pre-Anesthesia Assessment Start: 04/21/23 07:57 Freq: Status: Discharge Protocol: Document 04/21/23 07:58 CAB (Rec: 04/21/23 08:12 CAB [id number]) Pre-Anesthesia Assessment PAC Comment Pt is s/p Right Reverse TSA 03/31 Preferred Name Art Patient Information Reviewed Via Chart Review Comment Pre-op labs/EKG not ordered Seen Specialist in Last 12 Months Yes Specialist Seen Emergency,Orthopedist Primary Language Hong Konger Preferred Language Hong Konger Teletype Technician Required No Height 175.26 cm Weight 101.605 kg Body Mass Index (BMI) 33.0 Hearing Ability Normal Visual Assist Magnifying Glass Dentition Type Edentulous Barriers to Learning None Hx Anesthesia Reactions No Hx Family Anesthesia Reaction No Hx Malignant Hyperthermia No Hx Blood Transfusions No Hx Blood Transfusion Reaction No Anesthesia Review Requested No Bass Fisher No alcohol intake former alcohol intake frequency 0-2 drinks per day Smoking Status Former smoker how long ago did patient quit smoking 20 yrs ago Substance Use Type marijuana,amphetamines Musculoskeletal Symptoms Abnormal Gait,Difficulty Walking,Joint Stiffness, Limited Range of Motion History of Falling (Recent or History of Yes ) Patient is completely paralyzed or No completely immobile Mental Status Oriented to own ability Is patient on oxygen? No Does patient have CHAUDHARI/SOB No Hx Sleep Apnea No CPAP/BIPAP use not prescribed Currently Taking a Beta Miky No Hx Chest Pain No Hx SOB No Hx Syncope or Dizziness No Anti-Coagulant Therapy No Has a Client Business Manager No Cardiac Testing No Hx Pacemaker/ICD No Pacemaker Rep Required? No Cardiac Clearance Received Not Applicable Diet Type At Home Regular Dysphagia No: Endentulous - pt states he has no difficulty chewing Chronic UTI No Urinary Catheter Present No Hx Urinary Self Catheterization No Diabetes No HgbA1C 5.6 Date 12/12/21 Hx Drug Resistant Organism No Presence of External or Internal Medical No: Left knee, right ankle, Devices thoracic, right shoulder Received a COVID vaccine? Yes Marital Status Lives With significant other Current Living Arrangements RV Patient Discharge Plan Description Return Home Do You Have Any Spiritual Beliefs That No May Affect Your HC Choices? Do You Have Any Cultural Practices That No May Affect Your HC Choices? Emergency Contact Name Solitario Caldwell (EwaOYancy) Emergency Contact Advance Directives? No Power of Advanced Seal Delivery System No Power of Advanced Seal Delivery System Name Solitario
== END 2023-04-23 11:58 | disposition home or self-care (01) | DRG 483 ==
PROVIDERS: Admitting Provider Orthopaedic Surgery; Family Provider Family Medicine; Referring Provider Orthopaedic Surgery; Visit Provider Orthopaedic Surgery
PROC: 0RQJ0ZZ Repair Right Shoulder Joint, Open Approach (ICD-10-PCS; CPT 23472; principal; 2023-04-22 07:45)
DX: T84.098A Other mechanical complication of other internal joint prosthesis, initial encounter (principal); Y83.1 Surgical operation with implant of artificial internal device as the cause of abnormal reaction of the patient, or of later complication, without mention of misadventure at the time of the procedure; F43.10 Post-traumatic stress disorder, unspecified; F41.9 Anxiety disorder, unspecified; I10 Essential (primary) hypertension; F03.90 Unspecified dementia, unspecified severity, without behavioral disturbance, psychotic disturbance, mood disturbance, and anxiety; Z86.16 Personal history of COVID-19; Z96.652 Presence of left artificial knee joint; Z87.891 Personal history of nicotine dependence; Z79.82 Long term (current) use of aspirin; Z79.891 Long term (current) use of opiate analgesic; Z88.4 Allergy status to anesthetic agent
CPT/HCPCS: 36415; 64450; 73020; 73030; 76000; 85027; 87070; 87075; 87176; 87205; 97162; 97530; C1776; J0171; J0690; J1100; J1170; J1885; J2405; J2704; J3010

== ENCOUNTER 2023-04-28 10:08 | Emergency (ER) | payer OTHER, MEDICAID, SELFPAY ==
[2023-04-22 16:51] VITALS: BMI 33.0
[2023-04-28 10:07] VITALS: BP 133/86
[2023-04-28 10:08] VITALS: PULSE 91; O2SAT 97
[2023-04-28 10:11] VITALS: BP 133/86; PULSE 90; RESP 18; TEMP 37.1; O2SAT 97; BMI 32.5
--- NOTE | 2023-04-28 10:25 | ED_ITS ---
HPI - Extremity Problem General Chief complaint: Extremity Problem,Nontraumatic Stated complaint: Altered mental status Time Seen by Provider: 04/28/23 10:25 Source: patient and EMS Mode of arrival: EMS History of Present Illness HPI Narrative: Patient is a 72-year-old male. He recently had a right shoulder surgery where they took a bone graft from his right hip. He has a follow-up with Orthopedics at the beginning of next month. His right arm is in a sling. He was at the local wellness/methadone clinic this morning. Apparently they thought that he was more altered than normal. Patient states he does not feel like he is confus ed. He was having pain in his right hip. He has pain in his right shoulder but he thinks that it is not worse than normal. He is having some issues at home. He was going through a divorce. He states that he is more angry this morning then what he has been in the past and he thinks that is what they were concerned about at the clinic. Patient has no specific complaints other than right hip discomfort. Related Data Home Medications Medication Instructions Recorded Confirmed methadone 10 mg/5 mL oral solution 185 mg PO DAILY 08/04/22 04/22/23 Previous Rx's Medication Instructions Recorded acetaminophen 325 mg tablet 650 mg (2 x 325 mg) PO Q6HR PRN 03/03/22 fever or pain #240 tabs ibuprofen 400 mg tablet 400 mg PO Q4HR PRN fever or pain 03/03/22 #120 tabs acetaminophen 325 mg tablet 650 mg (2 x 325 mg) PO Q6H PRN 04/23/23 Fever/Mild Pain (1-3) #60 tabs aspirin 81 mg tablet,delayed 81 mg PO BID #60 tabs 04/23/23 release oxycodone 5 mg tablet 5 mg PO Q3H PRN Pain, Moderate 04/23/23 (4-6) #30 tabs Allergies Allergy/AdvReac Type Severity Reaction Status Date / Time ketamine AdvReac Hallucinati Verified 03/07/23 11:59 ng Review of Systems Constitutional Constitutional: Reports system reviewed and no additional complaints, except as documented Musculoskeletal Musculoskeletal: Reports system reviewed and no additional complaints, except as documented Integumentary/Breasts Skin/Breast: Reports system reviewed and no additional complaints, except as documented Neurologic Neurologic: Reports system reviewed and no additional complaints, except as documented Hematologic/Lymphatic On Anticoagulants: No Patient History Medical History Amputated finger PTSD (post-traumatic stress disorder) Anxiety Psoriasis HTN (hypertension) Dementia Epilepsy History of drug abuse Arthritis History of COVID-19 (07/2020) Surgical History (Updated 04/21/23 @ 08:09 by Claudia Brewer RN) 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) History of right knee surgery History of left knee surgery History of surgery History of ankle surgery History of thoracic surgery History of total left knee replacement (03/02/22) Social History household members: significant other Smoking Status: Former smoker alcohol intake: former Smoking Status: Former smoker alcohol intake frequency: 0-2 drinks per day Substance Use Type: marijuana and amphetamines Exam Initial Vital Signs Initial Vital Signs: Vital Signs Temperature 98.8 F 04/28/23 10:11 Pulse Rate 90 04/28/23 10:11 Respiratory Rate 18 04/28/23 10:11 Blood Pressure 133/86 04/28/23 10:11 Pulse Oximetry 97 04/28/23 10:11 Oxygen Delivery Method Room Air 04/28/23 10:11 Resp Effort & Inspection: normal respiratory effort Auscultation: clear to auscultation bilaterally Cardio Rate: regular rate Rhythm: regular rhythm Skin Other: Surgical incision and dressing over the right shoulder appears clean dry and intact. There was no surrounding erythema. The surgical dressing over the right hip was removed. The surgical incision looks well. No dehiscence. No surrounding erythema. No crepitus. Neuro Other: patient is alert and oriented x3. GCS of 15. He is slurring his words but he states that is how he normally talks. He does not have teeth. Extrem Other: Right shoulder in a sling Scores GCS [place] coma scale eye opening: Spontaneous [place] coma scale verbal response: Orientated [place] coma scale motor response: Obey commands [place] coma scale total score: 15 Course Vital Signs Vital signs: Vital Signs - 8 hr 04/28/23 10:11 Temperature 98.8 F Pulse Rate 90 Respiratory Rate 18 Blood Pressure 133/86 Pulse Oximetry 97 Oxygen Delivery Method Room Air MDM - Extremity (Nontraumatic) MDM Narrative Medical decision making narrative: he is alert and oriented x3. His surgical incisions appear well. We did replace his sling as the 1 that he is wearing starting to rip. He states that he feels like he is in an appropriate amount of discomfort after his surgery. He does not think that he is altered. He did not fall. He thinks that he is thirsty and very dry. He tolerated oral fluids. He did not think that we needed to do anything for him here in the ER. He would like to be discharged. Discharge Plan Departure Patient Disposition: Home Clinical Impression: Post-operative pain Activity Restrictions/Additional Instructions: recommend that you continue to take all of your medications as directed. Recommend that you follow all of the postoperative instructions given to you by the orthopedic surgeons and keep all of your scheduled medical appointments. Return to the emergency department for new or worsening symptoms. Prescriptions: No Action methadone 10 mg/5 mL Solution 185 mg PO DAILY acetaminophen 325 mg Tablet 650 mg PO Q6HR PRN (Reason: fever or pain) Qty: 240 0RF ibuprofen 400 mg Tablet 400 mg PO Q4HR PRN (Reason: fever or pain) Qty: 120 0RF acetaminophen 325 mg Tablet 650 mg PO Q6H PRN (Reason: Fever/Mild Pain (1-3)) Qty: 60 0RF aspirin 81 mg Tablet,Delayed Release (Dr/Ec) 81 mg PO BID Qty: 60 0RF oxycodone 5 mg Tablet 5 mg PO Q3H PRN (Reason: Pain, Moderate (4-6)) Qty: 30 0RF Referrals: Miscellaneous,Doctor, MD [Primary Care Provider] - Stand Alone Forms: Patient Portal/API
[2023-04-28 10:30] VITALS: PULSE 90; O2SAT 96
--- NOTE | 2023-04-28 10:32 | PC.NURSE ---
new dressing applied to R hip, CDI
--- NOTE | 2023-04-28 10:41 | PC.NURSE ---
called [facility] to give report and attempt to arrange transport back since pt did not receive dose. transferred 3 times, spoke with Sharifa in medical and Tee MANAGER OF ADMINISTRATION at [facility]; Tee voiced concerns reporting that the patient was confused at their facility and smelt of urine; MANAGER OF ADMINISTRATION educated that pt is alert and oriented x [address] RN and Dr Aleman, only c/o R hip pain; dressing replaced, no s/s of acute infection, VSS no s/s of sepsis noted, afebrile orally. MANAGER OF ADMINISTRATION reports that he is frustrated that we did not do a more thorough workup; requesting to speak to Dr. aleman; Dr. Aleman unavailable; MANAGER OF ADMINISTRATION educated. MANAGER OF ADMINISTRATION asked for call back number to return call after speaking with his show design supervisor. awaiting return call.
--- NOTE | 2023-04-28 10:52 | PC.NURSE ---
fresh sling applied to R upper extremity. Confirmed pt is alert, oriented to self, date, time, place, and event.
--- NOTE | 2023-04-28 11:06 | PC.NURSE ---
MAT SEWER called back reporting concerns for infection. temp rechecked, afebrile, HR wnl. pt denies complaints, reports I want to just go. MAT SEWER notified of pt up for dc x 30mins, called SO twice w/o answer, no further workup ordered by Dr. Aleman.
[2023-04-28 11:07] VITALS: PULSE 85; RESP 16; TEMP 37.1; O2SAT 97
== END 2023-04-28 12:18 | disposition home or self-care (01) ==
PROVIDERS: Emergency Provider Emergency Medicine; Family Provider Family Medicine
DX: G89.18 Other acute postprocedural pain (principal)
CPT/HCPCS: 99281

== ENCOUNTER 2023-04-28 18:44 | Emergency (ER) | payer OTHER, MEDICAID, SELFPAY ==
[2023-04-22 16:51] VITALS: BMI 33.0
[2023-04-28 18:48] VITALS: BP 127/67; PULSE 89; RESP 14; TEMP 37.6; O2SAT 97; BMI 32.5
--- NOTE | 2023-04-28 19:15 | CM.SWNOTE ---
ED CLOTHES DRIER REPAIRER Note CLOTHES DRIER REPAIRER receives CLOTHES DRIER REPAIRER consult from discharge rn, this is patient's second presentation to the ED today. Patient presented earlier today due to concern for AMS post right shoulder surgery on 04/22/23. Patient was at [facility] methadone clinic. This evening patient presents with s/o Solitario. She reports concern for his ADLs and lack of sleep. Patient denies these concerns. Patient was somewhat ambulatory upon presentation. CLOTHES DRIER REPAIRER enters room to meet with patient. Both patient and s/o present with inability to sit still. Patient presents as A/Ox3 but does not know why he is here and states that the main issue is his relationship with his s/o. Solitario s/o states this is the most they've fought in a long time, she reports concern for his incontinence, inability to clean up the house after himself and ADLs. She also states he hasn't slept in 5 days. Patient denies any concern for sleep or ADLs. It is reported that patient gets a ride to [facility] daily for methadone from Solitario's sister. Patient resides in [place]. Patient denies ETOH use and endorses Marijuana use. It is reported that patient has upcoming ortho f/u with Dr. Miller. CLOTHES DRIER REPAIRER explains that patient had a full medical clearance work up earlier today and asks what the goal of this ED visit is this evening. Patient is not able to answer this question other than stating that he hopes to improve his relationship with Solitario. Solitario reports concern for patient staying in the hospital, CLOTHES DRIER REPAIRER states that there may not be a medical diagnosis that is appropriate for admission. CLOTHES DRIER REPAIRER reviews patient with ED provider WILMA Perez to provide patient and s/o with senior resource guide. Plan: Patient likely to d/c to home upon medical clearance. Family to look into higher level of care needs. INA YuSW
[2023-04-28 20:15] VITALS: BP 124/75; PULSE 89; RESP 19; TEMP 37.1; O2SAT 94
--- NOTE | 2023-04-28 20:16 | PC.NURSE ---
Patient assessment done by Dr. Cisneros. This nurse in agreement.
--- NOTE | 2023-04-29 02:42 | ED_ITS ---
HPI - Extremity Injury (Lower) General Chief Complaint: Extremity Injury, Lower Stated Complaint: PCP Graham 04/22- sleep dep. T-5/ Time Seen by Provider: 04/28/23 19:23 Mode of arrival: Ambulatory History of Present Illness HPI Narrative: This is a 72-year-old man who brought in by private vehicle. This is his 2nd presentation to the emergency department today, home initially he was brought in for altered mental status. Patient was found to be not altered when seen here, and was discharged. He is brought back by his , concerns apparently are that he is not sleeping and is more argumentative than usual. The patient himself has no complaints. He says that he slept reasonably well last night. He denies suicidal or homicidal ideations. He says it he is not having any fevers abdominal pain vomiting or urinary symptoms, he feels as though he is okay and he would like to be discharged. He is fully oriented. The patient's accompanied him to the emergency department, and spoke with social work, I did not personally speak with the patient's she left the room by the time I entered and patient did not wish to have her call back. He does admit that he and his have been arguing recently. Related Data Home Medications Medication Instructions Recorded Confirmed methadone 10 mg/5 mL oral solution 185 mg PO DAILY 08/04/22 04/22/23 Previous Rx's Medication Instructions Recorded acetaminophen 325 mg tablet 650 mg (2 x 325 mg) PO Q6HR PRN 03/03/22 fever or pain #240 tabs ibuprofen 400 mg tablet 400 mg PO Q4HR PRN fever or pain 03/03/22 #120 tabs acetaminophen 325 mg tablet 650 mg (2 x 325 mg) PO Q6H PRN 04/23/23 Fever/Mild Pain (1-3) #60 tabs aspirin 81 mg tablet,delayed 81 mg PO BID #60 tabs 04/23/23 release oxycodone 5 mg tablet 5 mg PO Q3H PRN Pain, Moderate 04/23/23 (4-6) #30 tabs Allergies Allergy/AdvReac Type Severity Reaction Status Date / Time ketamine AdvReac Hallucinati Verified 03/07/23 11:59 ng Patient History Medical History Amputated finger PTSD (post-traumatic stress disorder) Anxiety Psoriasis HTN (hypertension) Dementia Epilepsy History of drug abuse Arthritis History of COVID-19 (07/2020) Surgical History (Updated 04/21/23 @ 08:09 by Claudia Brewer RN) 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) History of right knee surgery History of left knee surgery History of surgery History of ankle surgery History of thoracic surgery History of total left knee replacement (03/02/22) Social History household members: significant other Smoking Status: Former smoker alcohol intake: former Smoking Status: Former smoker alcohol intake frequency: 0-2 drinks per day Substance Use Type: marijuana and amphetamines Exam Initial Vital Signs Initial Vital Signs: Vital Signs Temperature 99.7 F H 04/28/23 18:48 Pulse Rate 89 04/28/23 18:48 Respiratory Rate 14 04/28/23 18:48 Blood Pressure 127/67 04/28/23 18:48 Pulse Oximetry 97 04/28/23 18:48 Oxygen Delivery Method Room Air 04/28/23 18:48 Const Other: He is alert somewhat disheveled, he is edentulous, it is a little difficult to understand him this seems to be because of his lack of teeth. He is fully oriented and cooperative. [facility] Head: normocephalic Eyes Pupils: PERRL EOM: EOM intact bilaterally and No nystagmus Neck Neck: supple Resp Effort & Inspection: normal respiratory effort Auscultation: clear to auscultation bilaterally Cardio Other: Heart rate is normal Skin Other: Warm and dry Neuro Cranial Nerves: CN's II-XI intact bilaterally and No nystagmus Speech: other (Dysarthric, this appears to be related to his lack of dentures) Extrem Other: Right shoulder dressing is intact, no swelling of the right arm. Course Orders Ordered: ED Orders 04/28/23 18:50 Consult to DIRECTOR OF CUSTOMER ACQUISITION - Parking Cashier Stat Consultations Consultation #1: Case discussed with social work, the family welfare social work professor since he was at patient's is looking for more assistance at home with his care. Resources were provided Vital Signs Vital signs: Vital Signs - 8 hr 04/28/23 18:48 04/28/23 20:15 Temperature 99.7 F H 98.8 F Pulse Rate 89 89 Respiratory Rate 14 19 Blood Pressure 127/67 124/75 Pulse Oximetry 97 94 Oxygen Delivery Method Room Air Room Air MDM - Extremity Injury (Lower) Medical Records Medical records narrative: I reviewed the social work note from today, also reviewed ED visit from earlier today MDM Narrative Medical decision making narrative: 69-year-old male who is status post right shoulder surgery has chronic pain is on chronic opiates specifically methadone. Family brings him in with nonemergent complaints. I considered the possibility of delirium however the patient is fully oriented he is alert and I can not really see where he is got altered mental status at present. He is well-appearing and does not want to be in the emergency department and did not want further testing. Patient is discharged home. Discharge Plan Departure Patient Disposition: Home Clinical Impression: Altered behavior Insomnia Qualifiers: Insomnia type: unspecified Qualified Code(s): G47.00 - Insomnia, unspecified Activity Restrictions/Additional Instructions: Examination today is reassuring. I do not think that you have an acute medical problem requiring further evaluation today. With your advanced age, I am rel uctant prescribe any medication for sleep his best she is since you are reporting having slept last night. Chamomile tea is sometimes effective, you could also try melatonin, which is available jaax-[id number]-[id number] 1 mg at bedtime as needed. Additionally follow up with your primary care provider. dining services director has provided a list of additional resources also, follow up with them for help at home with activities of daily living assistance. Prescriptions: No Action methadone 10 mg/5 mL Solution 185 mg PO DAILY acetaminophen 325 mg Tablet 650 mg PO Q6HR PRN (Reason: fever or pain) Qty: 240 0RF ibuprofen 400 mg Tablet 400 mg PO Q4HR PRN (Reason: fever or pain) Qty: 120 0RF acetaminophen 325 mg Tablet 650 mg PO Q6H PRN (Reason: Fever/Mild Pain (1-3)) Qty: 60 0RF aspirin 81 mg Tablet,Delayed Release (Dr/Ec) 81 mg PO BID Qty: 60 0RF oxycodone 5 mg Tablet 5 mg PO Q3H PRN (Reason: Pain, Moderate (4-6)) Qty: 30 0RF Referrals: Miscellaneous,Doctor, MD [Primary Care Provider] - Stand Alone Forms: Patient Portal/API
== END 2023-04-28 20:19 | disposition home or self-care (01) ==
PROVIDERS: Emergency Provider Emergency Medicine; Family Provider Family Medicine
DX: R41.82 Altered mental status, unspecified (principal); G47.00 Insomnia, unspecified; G89.18 Other acute postprocedural pain
CPT/HCPCS: 99281

== ENCOUNTER 2023-12-14 15:15 | Outpatient (RCR) | payer MEDICARE, MEDICAID, SELFPAY ==
[2023-04-22 16:51] VITALS: BMI 33.0
--- NOTE | 2023-07-25 15:15 | PT.OPPOC ---
Physical, Occupational & Speech Therapy At [facility] Current Diagnoses Primary osteoarthritis, right shoulder (07/25/23) Pain in right shoulder (07/25/23) Stiffness of right shoulder, not elsewhere classified (07/25/23) Muscle weakness (generalized) (07/25/23) Visit Care Team Role Provider Type Doctor Talia, Family Provider Non-Staff Specialty: Medical Address: Phone: Fax: Email: Donovan James MD Attending Provider Physician Referring Provider Specialty: Orthopedics Orthopedic Surgery Address: [address] [place] [address], [address] Email: [email or web address] Plan Of Care PT-OP-T Assessment and Plan Start: 07/25/23 17:38 Freq: Status: Active Protocol: Document 07/25/23 14:40 DCW (Rec: 07/26/23 11:09 DCW [id number]) Physical Therapy Assessment Rehab Potential Rehabilitation Potential Good Evaluation Complexity Number of Personal Factors/Comorbidities 3 or More Number of Body Systems Impaired 3 Clinical Presentation at Evaluation Stable Impairments Impairments Activity Tolerance,Functional Activities,Functional Mobility ,Integument,Pain,ROM,Soft Tissue Mobility,Strength Goals Two Impairment Severely limited AROM of right shoulder flexion (42?) and abduction (36?) Clinical Psychology Teacher Goal (LTG) Pt to demonstrate improved AROM to 100? 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 Unfortunately, pt getting a very late start to rehab and admits he has not been performing any HEP following surgery. Does demonstrate fairly good PROM (140? flexion and abduction) but severely limited with AROM (42? flexion , 36? abduction) secondary to significant muscle weakness. Pt will likely benefit from skilled therapeutic intervention in order to improve functional mobility, strength, AROM, and pain levels of right shoulder. Physical Therapy Plan Frequency and Duration Frequency of Treatment 2x/Week Plan of Care Start Date 07/25/23 Plan of Care End Date 09/24/23 Therapeutic Interventions Therapeutic Interventions Home Exercise Program,Joint Mobilizations,Manual Therapy, Neuromuscular Re-education, Patient/Caregiver Education, Self-Care/Home Management,Soft Tissue Mobilization,Taping, Therapeutic Activities, Therapeutic Exercises Modalities Cold Pack/Ice Massage,Electric Stimulation,Hot Packs, Ultrasound Next Visit Focus/Plan Next Note Type Treatment Note Next Visit Plan AAROM, strengthening Plan of Care Dates Plan of Care Start Date 07/25/23 Plan of Care End Date 09/24/23 Electronically Signed by: Jonathan Dejesus, PT 07/26/23 [id number] If you are in agreement with this Plan of Care, please return a signed and dated copy. I have reviewed this Plan of Care and certify that the skilled therapy services above are required to meet the patient?s needs. Physician Signature Date Printed Name and Credentials Clinical Instructor Signature Printed Name and Credentials
--- NOTE | 2023-07-25 15:15 | PT.OIE ---
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) History of right knee surgery History of surgery History of thoracic surgery History of total left knee replacement (03/02/22) Visit Care Team Role Provider Type Doctor MD Talia Family Provider Non-Staff Specialty: Medical Address: Phone: Fax: Email: Donovan James MD Attending Provider Physician Referring Provider Specialty: Orthopedics Orthopedic Surgery Address: [address] [place] [address], [address] Email: [email or web address] Physical Therapy Initial Evaluation PT-OP-A Visit Information Start: 07/25/23 17:38 Freq: Status: Active Protocol: Document 07/25/23 14:40 DCW (Rec: 07/25/23 17:47 DCW [id number]) Out-Patient Physical Therapy Visit Information Visit Information Visit Type Initial Evaluation Visit Start Time 14:40 Visit Stop Time 15:10 Visit Number 1 Number of WEBSPHERE PORTAL DEVELOPER Visits 0 Evaluation Information Evaluation Date 07/25/23 Precautions Precautions Post-op protocol: Begin ROM at 6 weeks Begin Strengthening at 12 weeks PT-OP-B Current Condition Start: 07/25/23 17:38 Freq: Status: Active Protocol: Document 07/25/23 14:40 DCW (Rec: 07/25/23 17:47 DCW [id number]) Current Condition History of Current Condition Onset Date 04/22/24 Current Complaints Right shoulder pain, stiffness s/p revised TSA History of Current Condition Pt is a 72 year old male presenting three months s/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 Pt is now three months s/p revision, admits he has not done anything strenuous, minimal mobility of right shoulder since surgery, other than mild PROM using left arm. Pt does note he lives on a boat, and has had to do a little rowing, but otherwise has not had any exercise. Notes he was told to do pendulums pre-surgery, but hasn't done any after. PT-OP-C Subjective Start: 07/25/23 17:38 Freq: Status: Active Protocol: Document 07/25/23 14:40 DCW (Rec: 07/26/23 10:58 DCW [id number]) OP-PT Subjective Patient Comments Patient Comments I'm not really doing much. Patient Questionnaires Quick Dash- Upper Extremity Quick Dash UE Score 43.18% Quick Dash UE Impairment 40 to 59% Impaired (Score 40- 59) OP-PT Pain Assessment Pain Assessment Grid Paper Pain Assessment Grid Completed No PT-OP-K Range of Motion Start: 07/25/23 17:38 Freq: Status: Active Protocol: Document 07/25/23 14:40 DCW (Rec: 07/26/23 10:58 DCW [id number]) Shoulder Goniometric Range of Motion Shoulder Right Passive Testing Position Supine Flexion 140 Abduction 140 External Rotation at 0 degrees Abduction 65 Right Active Shoulder ROM WFL No Testing Position Sitting Flexion 42 Abduction 36 External Rotation at 0 degrees Abduction 34 Internal Rotation Behind Back (text) Lateral Hip Left Active Shoulder ROM WFL Yes Testing Position Sitting Flexion 170 Abduction 160 External Rotation at 0 degrees Abduction 45 Internal Rotation Behind Back (text) T10 Shoulder ROM Limitations Shoulder ROM Limitations Muscle Weakness,Pain Elbow/Forearm Range of Motion Elbow/Forearm Right Active Elbow/Forearm ROM WFL Yes ROM Testing Position Sitting PT-OP-M Strength Start: 07/25/23 17:38 Freq: Status: Active Protocol: Document 07/25/23 14:40 DCW (Rec: 07/26/23 10:58 DCW [id number]) Shoulder Strength Shoulder Manual Muscle Testing Right Flexion 2- Poor- Abduction (C5) 2- Poor- External Rotation 2- Poor- Internal Rotation 2- Poor- Elbow/Forearm Strength Elbow and Forearm Manual Muscle Testing Right Flexion (C6) 4+ Good+ Extension (C7) 4+ Good+ PT-OP-Q Treatments Start: 07/25/23 17:38 Freq: Status: Active Protocol: Document 07/25/23 14:40 DCW (Rec: 07/25/23 17:47 DCW [id number]) Therapeutic Exercises Sitting Exercises PROM Sitting Exercise Name Wand PROM - Flexion, Abduction Side right Standing Exercises Pendulums Standing Exercise Name Pendulums Side right PT-OP-T Assessment and Plan Start: 07/25/23 17:38 Freq: Status: Active Protocol: Document 07/25/23 14:40 DCW (Rec: 07/26/23 11:09 DCW [id number]) Physical Therapy Assessment Rehab Potential Rehabilitation Potential Good Evaluation Complexity Number of Personal Factors/Comorbidities 3 or More Number of Body Systems Impaired 3 Clinical Presentation at Evaluation Stable Impairments Impairments Activity Tolerance,Functional Activities,Functional Mobility ,Integument,Pain,ROM,Soft Tissue Mobility,Strength Goals Two Impairment Severely limited AROM of right shoulder flexion (42?) and abduction (36?) Alf Goal (LTG) Pt to demonstrate improved AROM to 100? 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 Unfortunately, pt getting a very late start to rehab and admits he has not been performing any HEP following surgery. Does demonstrate fairly good PROM (140? flexion and abduction) but severely limited with AROM (42? flexion , 36? abduction) secondary to significant muscle weakness. Pt will likely benefit from skilled therapeutic intervention in order to improve functional mobility, strength, AROM, and pain levels of right shoulder. Physical Therapy Plan Frequency and Duration Frequency of Treatment 2x/Week Plan of Care Start Date 07/25/23 Plan of Care End Date 09/24/23 Therapeutic Interventions Therapeutic Interventions Home Exercise Program,Joint Mobilizations,Manual Therapy, Neuromuscular Re-education, Patient/Caregiver Education, Self-Care/Home Management,Soft Tissue Mobilization,Taping, Therapeutic Activities, Therapeutic Exercises Modalities Cold Pack/Ice Massage,Electric Stimulation,Hot Packs, Ultrasound Next Visit Focus/Plan Next Note Type Treatment Note Next Visit Plan nicole HARDIN
--- NOTE | 2023-07-29 15:14 | PT.OTN ---
Current Diagnoses Primary osteoarthritis, right shoulder (07/29/23) Pain in right shoulder (07/29/23) Stiffness of right shoulder, not elsewhere classified (07/29/23) Muscle weakness (generalized) (07/29/23) Physical Therapy Treatment Note PT-OP-A Visit Information Start: 07/25/23 17:38 Freq: Status: Active Protocol: Document 07/29/23 14:30 DCW (Rec: 07/29/23 15:14 DCW [id number]) Out-Patient Physical Therapy Visit Information Visit Information Visit Type Treatment Note Visit Start Time 14:30 Visit Stop Time 15:15 Visit Number 2 Number of STOKER ERECTOR AND SERVICER Visits 0 Evaluation Information Evaluation Date 07/25/23 Precautions Precautions Post-op protocol: Begin ROM at 6 weeks Begin Strengthening at 12 weeks PT-OP-B Current Condition Start: 07/25/23 17:38 Freq: Status: Active Protocol: Document 07/25/23 14:40 DCW (Rec: 07/25/23 17:47 DCW [id number]) Current Condition History of Current Condition Onset Date 04/22/24 Current Complaints Right shoulder pain, stiffness s/p revised TSA History of Current Condition Pt is a 72 year old male presenting three months s/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 Pt is now three months s/p revision, admits he has not done anything strenuous, minimal mobility of right shoulder since surgery, other than mild PROM using left arm. Pt does note he lives on a boat, and has had to do a little rowing, but otherwise has not had any exercise. Notes he was told to do pendulums pre-surgery, but hasn't done any after. PT-OP-C Subjective Start: 07/25/23 17:38 Freq: Status: Active Protocol: Document 07/29/23 14:30 DCW (Rec: 07/29/23 15:14 DCW [id number]) OP-PT Subjective Patient Comments Patient Comments It's a little more sore today . PT-OP-K Range of Motion Start: 07/25/23 17:38 Freq: Status: Active Protocol: Document 07/25/23 14:40 DCW (Rec: 07/26/23 10:58 DCW [id number]) Shoulder Goniometric Range of Motion Shoulder Right Passive Testing Position Supine Flexion 140 Abduction 140 External Rotation at 0 degrees Abduction 65 Right Active Shoulder ROM WFL No Testing Position Sitting Flexion 42 Abduction 36 External Rotation at 0 degrees Abduction 34 Internal Rotation Behind Back (text) Lateral Hip Left Active Shoulder ROM WFL Yes Testing Position Sitting Flexion 170 Abduction 160 External Rotation at 0 degrees Abduction 45 Internal Rotation Behind Back (text) T10 Shoulder ROM Limitations Shoulder ROM Limitations Muscle Weakness,Pain Elbow/Forearm Range of Motion Elbow/Forearm Right Active Elbow/Forearm ROM WFL Yes ROM Testing Position Sitting PT-OP-M Strength Start: 07/25/23 17:38 Freq: Status: Active Protocol: Document 07/25/23 14:40 DCW (Rec: 07/26/23 10:58 DCW [id number]) Shoulder Strength Shoulder Manual Muscle Testing Right Flexion 2- Poor- Abduction (C5) 2- Poor- External Rotation 2- Poor- Internal Rotation 2- Poor- Elbow/Forearm Strength Elbow and Forearm Manual Muscle Testing Right Flexion (C6) 4+ Good+ Extension (C7) 4+ Good+ PT-OP-Q Treatments Start: 07/25/23 17:38 Freq: Status: Active Protocol: Document 07/29/23 14:30 DCW (Rec: 07/29/23 15:14 DCW [id number]) Cardio Equipment Upper Body Ergometer (UBE) Duration (Minutes) 4 RPM 60 Seat Position 13 Height 2.5 Therapeutic Exercises Sitting Exercises Shoulder Rolls Sitting Exercise Name Fwd/Bkwd shoulder rolls Side bilateral Pulleys Sitting Exercise Name AAROM Pulleys - Flexion Side right Standing Exercises Pronation/Supination Standing Exercise Name Hammer pronation/supination Side right Curls Standing Exercise Name Biceps curls/reverse curls Side bilateral Resistance 3# Comments stopped reverse d/t shoulder pain Adduction Standing Exercise Name Shoulder Adduction Side right Resistance [place] Extension Standing Exercise Name Shoulder Extension Side bilateral Resistance [place]ows Standing Exercise Name Rows Side bilateral Resistance [place] Manual Therapy Treatment Soft Tissue Mobilization Parascapulars Body Location R Parascapulars - Infraspinatus, supraspinatus Mobilization Type Sustained Pressure,Trigger Point Release Intensity/Depth Moderate Body Position Sitting Joint Mobilizations Scapular Joint R Scapula Direction Superior/Medial->Inferior/ Lateral PT-OP-T Assessment and Plan Start: 07/25/23 17:38 Freq: Status: Active Protocol: Document 07/29/23 14:30 DC (Rec: 07/29/23 15:14 DC [id number]) Physical Therapy Assessment Impairments Impairments Activity Tolerance,Functional Activities,Functional Mobility ,Integument,Pain,ROM,Soft Tissue Mobility,Strength Goals Two Impairment Severely limited AROM of right shoulder flexion (42?) and abduction (36?) Custodial Goal (LTG) Pt to demonstrate improved AROM to 100? 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 LTG Duration 09/24/23 One Impairment Pt does not have an appropriate home exercise program Short Term Goal (STG) Pt to be independent and compliant with an appropriate HEP STG Duration 08/25/23 Assessment Summary Assessment Pt tolerating AAROM fairly well, was experiencing some increased pain with UBE and reverse curls, so both were stopped early. Continues to demonstrate good PROM, AROM making small improvements. Has been consistent so far with HEP Physical Therapy Plan Frequency and Duration Frequency of Treatment 2x/Week Plan of Care Start Date 07/25/23 Plan of Care End Date 09/24/23 Therapeutic Interventions Therapeutic Interventions Home Exercise Program,Joint Mobilizations,Manual Therapy, Neuromuscular Re-education, Patient/Caregiver Education, Self-Care/Home Management,Soft Tissue Mobilization,Taping, Therapeutic Activities, Therapeutic Exercises Modalities Cold Pack/Ice Massage,Electric Stimulation,Hot Packs, Ultrasound Next Visit Focus/Plan Next Note Type Treatment Note Next Visit Plan AAROM, strengthening
--- NOTE | 2023-08-01 15:14 | PT.OTN ---
Current Diagnoses Primary osteoarthritis, right shoulder (08/01/23) Pain in right shoulder (08/01/23) Stiffness of right shoulder, not elsewhere classified (08/01/23) Muscle weakness (generalized) (08/01/23) Physical Therapy Treatment Note PT-OP-A Visit Information Start: 07/25/23 17:38 Freq: Status: Active Protocol: Document 08/01/23 14:30 DCW (Rec: 08/01/23 15:13 DCW [id number]) Out-Patient Physical Therapy Visit Information Visit Information Visit Type Treatment Note Visit Start Time 14:30 Visit Stop Time 15:15 Visit Number 3 Number of [employer] FINISHER Visits 0 Evaluation Information Evaluation Date 07/25/23 Precautions Precautions Post-op protocol: Begin ROM at 6 weeks Begin Strengthening at 12 weeks PT-OP-B Current Condition Start: 07/25/23 17:38 Freq: Status: Active Protocol: Document 07/25/23 14:40 DCW (Rec: 07/25/23 17:47 DCW [id number]) Current Condition History of Current Condition Onset Date 04/22/24 Current Complaints Right shoulder pain, stiffness s/p revised TSA History of Current Condition Pt is a 72 year old male presenting three months s/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 Pt is now three months s/p revision, admits he has not done anything strenuous, minimal mobility of right shoulder since surgery, other than mild PROM using left arm. Pt does note he lives on a boat, and has had to do a little rowing, but otherwise has not had any exercise. Notes he was told to do pendulums pre-surgery, but hasn't done any after. PT-OP-C Subjective Start: 07/25/23 17:38 Freq: Status: Active Protocol: Document 08/01/23 14:30 DCW (Rec: 08/01/23 15:13 DCW [id number]) OP-PT Subjective Patient Comments Patient Comments It's still pretty tender. PT-OP-K Range of Motion Start: 07/25/23 17:38 Freq: Status: Active Protocol: Document 07/25/23 14:40 DCW (Rec: 07/26/23 10:58 DCW [id number]) Shoulder Goniometric Range of Motion Shoulder Right Passive Testing Position Supine Flexion 140 Abduction 140 External Rotation at 0 degrees Abduction 65 Right Active Shoulder ROM WFL No Testing Position Sitting Flexion 42 Abduction 36 External Rotation at 0 degrees Abduction 34 Internal Rotation Behind Back (text) Lateral Hip Left Active Shoulder ROM WFL Yes Testing Position Sitting Flexion 170 Abduction 160 External Rotation at 0 degrees Abduction 45 Internal Rotation Behind Back (text) T10 Shoulder ROM Limitations Shoulder ROM Limitations Muscle Weakness,Pain Elbow/Forearm Range of Motion Elbow/Forearm Right Active Elbow/Forearm ROM WFL Yes ROM Testing Position Sitting PT-OP-M Strength Start: 07/25/23 17:38 Freq: Status: Active Protocol: Document 07/25/23 14:40 DCW (Rec: 07/26/23 10:58 DCW [id number]) Shoulder Strength Shoulder Manual Muscle Testing Right Flexion 2- Poor- Abduction (C5) 2- Poor- External Rotation 2- Poor- Internal Rotation 2- Poor- Elbow/Forearm Strength Elbow and Forearm Manual Muscle Testing Right Flexion (C6) 4+ Good+ Extension (C7) 4+ Good+ PT-OP-Q Treatments Start: 07/25/23 17:38 Freq: Status: Active Protocol: Document 08/01/23 14:30 DCW (Rec: 08/01/23 15:13 DCW [id number]) Cardio Equipment Upper Body Ergometer (UBE) Duration (Minutes) 4 RPM 60 Seat Position 13 Height 2.5 Therapeutic Exercises Supine Exercises Flexion Supine Exercise Name AAROM flexion /c PVC Comments x1, pt felt pop with pain, stopped activity immediately Sidelying Exercises ER Sidelying Exercise Name Shoulder ER Side right Sitting Exercises Pulleys Sitting Exercise Name AAROM Pulleys - Flexion Side right Standing Exercises Abduction Standing Exercise Name Shoulder Abduction Side bilateral Resistance 2# Comments pain-free ROM, avoid UT activation Flexion Standing Exercise Name Shoulder Flexion Side bilateral Resistance 2# Comments pain-free ROM, avoid UT activation Chest Press Standing Exercise Name Overhead press /c PVC Curls Standing Exercise Name Biceps curls Side bilateral Resistance 2# Adduction Standing Exercise Name Shoulder Adduction Side right Resistance [place] Extension Standing Exercise Name Shoulder Extension Side bilateral Resistance [place] Rows Standing Exercise Name Rows Side bilateral Resistance [place] Manual Therapy Treatment Soft Tissue Mobilization Parascapulars Body Location R Parascapulars - Infraspinatus, supraspinatus Mobilization Type Sustained Pressure,Trigger Point Release Intensity/Depth Moderate Body Position Sitting Joint Mobilizations Scapular Joint R Scapula Direction Superior/Medial->Inferior/ Lateral PT-OP-T Assessment and Plan Start: 07/25/23 17:38 Freq: Status: Active Protocol: Document 08/01/23 14:30 DCW (Rec: 08/01/23 15:13 DCW [id number]) Physical Therapy Assessment Impairments Impairments Activity Tolerance,Functional Activities,Functional Mobility ,Integument,Pain,ROM,Soft Tissue Mobility,Strength Goals Two Impairment Severely limited AROM of right shoulder flexion (42?) and abduction (36?) Usp Goal (LTG) Pt to demonstrate improved AROM to 100? 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 LTG Duration 09/24/23 One Impairment Pt does not have an appropriate home exercise program Short Term Goal (STG) Pt to be independent and compliant with an appropriate HEP STG Duration 08/25/23 Assessment Summary Assessment Pt still very restricted with both passive and active ROM, feeling instability with anything overhead, complains of popping and pain with flexion. Instructed to limit attempts at any overhead movements. Physical Therapy Plan Frequency and Duration Frequency of Treatment 2x/Week Plan of Care Start Date 07/25/23 Plan of Care End Date 09/24/23 Therapeutic Interventions Therapeutic Interventions Home Exercise Program,Joint Mobilizations,Manual Therapy, Neuromuscular Re-education, Patient/Caregiver Education, Self-Care/Home Management,Soft Tissue Mobilization,Taping, Therapeutic Activities, Therapeutic Exercises Modalities Cold Pack/Ice Massage,Electric Stimulation,Hot Packs, Ultrasound Next Visit Focus/Plan Next Note Type Treatment Note Next Visit Plan AAROM, strengthening
--- NOTE | 2023-08-05 15:13 | PT.OTN ---
Current Diagnoses Primary osteoarthritis, right shoulder (08/05/23) Pain in right shoulder (08/05/23) Stiffness of right shoulder, not elsewhere classified (08/05/23) Muscle weakness (generalized) (08/05/23) Physical Therapy Treatment Note PT-OP-A Visit Information Start: 07/25/23 17:38 Freq: Status: Active Protocol: Document 08/05/23 14:38 SP (Rec: 08/05/23 16:10 SP [id number]) Out-Patient Physical Therapy Visit Information Visit Information Visit Type Treatment Note Visit Start Time 14:35 Visit Stop Time 15:13 Visit Number 4 Number of SUPERVISOR IN CHARGE Visits 1 Evaluation Information Evaluation Date 07/25/23 Precautions Precautions Post-op protocol: Begin ROM at 6 weeks Begin Strengthening at 12 weeks PT-OP-B Current Condition Start: 07/25/23 17:38 Freq: Status: Active Protocol: Document 07/25/23 14:40 DCW (Rec: 07/25/23 17:47 DCW [id number]) Current Condition History of Current Condition Onset Date 04/22/24 Current Complaints Right shoulder pain, stiffness s/p revised TSA History of Current Condition Pt is a 72 year old male presenting three months s/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 Pt is now three months s/p revision, admits he has not done anything strenuous, minimal mobility of right shoulder since surgery, other than mild PROM using left arm. Pt does note he lives on a boat, and has had to do a little rowing, but otherwise has not had any exercise. Notes he was told to do pendulums pre-surgery, but hasn't done any after. PT-OP-C Subjective Start: 07/25/23 17:38 Freq: Status: Active Protocol: Document 08/05/23 14:38 SP (Rec: 08/05/23 16:10 SP [id number]) OP-PT Subjective Patient Comments Patient Comments Pt reports his R shld popped during last tx and again at home since last tx, having alot pain and unable to lift R arm, still popping during walking. PT-OP-K Range of Motion Start: 07/25/23 17:38 Freq: Status: Active Protocol: Document 07/25/23 14:40 DCW (Rec: 07/26/23 10:58 DCW [id number]) Shoulder Goniometric Range of Motion Shoulder Right Passive Testing Position Supine Flexion 140 Abduction 140 External Rotation at 0 degrees Abduction 65 Right Active Shoulder ROM WFL No Testing Position Sitting Flexion 42 Abduction 36 External Rotation at 0 degrees Abduction 34 Internal Rotation Behind Back (text) Lateral Hip Left Active Shoulder ROM WFL Yes Testing Position Sitting Flexion 170 Abduction 160 External Rotation at 0 degrees Abduction 45 Internal Rotation Behind Back (text) T10 Shoulder ROM Limitations Shoulder ROM Limitations Muscle Weakness,Pain Elbow/Forearm Range of Motion Elbow/Forearm Right Active Elbow/Forearm ROM WFL Yes ROM Testing Position Sitting PT-OP-M Strength Start: 07/25/23 17:38 Freq: Status: Active Protocol: Document 07/25/23 14:40 DCW (Rec: 07/26/23 10:58 DCW [id number]) Shoulder Strength Shoulder Manual Muscle Testing Right Flexion 2- Poor- Abduction (C5) 2- Poor- External Rotation 2- Poor- Internal Rotation 2- Poor- Elbow/Forearm Strength Elbow and Forearm Manual Muscle Testing Right Flexion (C6) 4+ Good+ Extension (C7) 4+ Good+ PT-OP-Q Treatments Start: 07/25/23 17:38 Freq: Status: Active Protocol: Document 08/05/23 14:38 SP (Rec: 08/05/23 16:10 SP [id number]) Therapeutic Exercises Sidelying Exercises scapular retraction Side right Resistance PROM>AAROM Reps/Minutes 10 reps Comments incorporated post manual fac carryover Sitting Exercises Shoulder Rolls Sitting Exercise Name Emphasized SLOW Bkwd shoulder rolls Side bilateral Equipment Used L SL and seated Reps/Minutes 5 reps x2 sets- carrover standing functional positioning Comments tactile cues for retraction/ slight depression, diminished crunching. Standing Exercises scapular retraction Standing Exercise Name intiated in PT suggested can perform at home- declined HO Side bilateral Resistance AROM (hands rested on rail counter) Reps/Minutes 5 SH x5 reps, x2 sets Comments ed and tactile cues rhomboid engagement then relax neutral position- pnfree Manual Therapy Treatment Soft Tissue Mobilization Parascapulars Body Location R Parascapulars: Rhomboid, Infraspin, Supraspin, Ser Ant, LS Mobilization Type Rolling,Sustained Pressure, Trigger Point Release,Other Intensity/Depth Moderate Body Position L SL Comments gentle STMs, PROM scapula then gentle pressure MWM during FM : retraction/slight depression - reduction then diminished crunching discomfort superior angle of R scapula/distal LS. Joint Mobilizations Scapular Joint R Scapula Direction Superior/Medial->Inferior/ Lateral Comments PROM, AAROM, AROM tactile cue emphasis for 9, 8, 7 o'clock positioning diminished crunching under superior angle of R scapula and softening of R pec. PT-OP-T Assessment and Plan Start: 07/25/23 17:38 Freq: Status: Active Protocol: Document 08/05/23 14:38 SP (Rec: 08/05/23 16:10 SP [id number]) Physical Therapy Assessment Goals Two Impairment Severely limited AROM of right shoulder flexion (42?) and abduction (36?) Manager Clinical Research Goal (LTG) Pt to demonstrate improved AROM to 100? 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 LTG Duration 09/24/23 One Impairment Pt does not have an appropriate home exercise program Short Term Goal (STG) Pt to be independent and compliant with an appropriate HEP STG Duration 08/25/23 Assessment Summary Assessment SUPERVISOR IN CHARGE palpated R scapula/ prominal humeral head. Discussed with supervising PT, reassessed alignment/pain report now and crunch feeling distal humeral head with any RUE movement painful. PT called Dr James's office, scheduled follow up appt Mon for further assessment. SUPERVISOR IN CHARGE palpated crunch feeling under superior angle of scapula during AAROM scapular glides LSL, reducation post gentle manual STMs to rhomboid, UT, serratus ant and pec, PROM> AAROM/ AROM Rhomboid and LT activation during scapular retraction slight depression HEP review LSL seated, standing with pt report not painful in posterior scapula with more upright posture awareness again. SUPERVISOR IN CHARGE provided education on mindfulness of scapular positioning as found by end of tx and R arm in neutral can feel heavy with lack of strength/pain in GHjt at this time providing supported positioning needed, hold off on carrying anything weighted and actions away from his body, why not performed during tx today until further assessment with pt in agreement. Understands use of CP modalities for pain supported if needed. Physical Therapy Plan Frequency and Duration Frequency of Treatment 2x/Week Plan of Care Start Date 07/25/23 Plan of Care End Date 09/24/23 Therapeutic Interventions Therapeutic Interventions Home Exercise Program,Joint Mobilizations,Manual Therapy, Neuromuscular Re-education, Patient/Caregiver Education, Self-Care/Home Management,Soft Tissue Mobilization,Taping, Therapeutic Activities, Therapeutic Exercises Modalities Cold Pack/Ice Massage,Electric Stimulation,Hot Packs, Ultrasound Next Visit Focus/Plan Next Note Type Treatment Note Next Visit Plan REYOM, strengthening
--- NOTE | 2023-08-16 14:46 | PT-OP ANOTE ---
Phoned patient regarding no show, made patient aware of fee and DC post 2 no shows. Patient reports he did not come in due to being upset about his shoulder. Pt reports that he saw the MD and was told this is it for the shoulder. Patient reports he was told he can continue with therapy, but this is it other than having another surgery which requires 8 mos of recovery. Patient requested appointments be cancelled, then commented he would like exercises to perform at home.
--- NOTE | 2023-08-17 13:29 | PT-OP ANOTE ---
Spoke with pt today on phone, admits he was frustrated after speaking with his surgeon Tuesday, but notes he is motivated to continue PT and get as much out of his shoulder as possible without further PT. Reminded of his appointment time 08/18/23 at [id number], pt reports he will be here.
--- NOTE | 2023-08-18 16:32 | PT.OTN ---
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 Pt is now three months s/p revision, admits he has not done anything strenuous, minimal mobility of right shoulder since surgery, other than mild PROM using left arm. Pt does note he lives on a boat, and has had to do a little rowing, but otherwise has not had any exercise. Notes he was told to do pendulums pre-surgery, but hasn't done any after. 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 Patient rates right shoulder pain 8/10 seated at rest. Patient reports ROM is really bad. Patient reports pain every time he tries to do something with the shoulder. AROM right shoulder scaption 34 deg PT-OP-K Range of Motion Start: 07/25/23 17:38 Freq: Status: Active Protocol: Document 07/25/23 14:40 DCW (Rec: 07/26/23 10:58 DCW [id number]) Shoulder Goniometric Range of Motion Shoulder Right Passive Testing Position Supine Flexion 140 Abduction 140 External Rotation at 0 degrees Abduction 65 Right Active Shoulder ROM WFL No Testing Position Sitting Flexion 42 Abduction 36 External Rotation at 0 degrees Abduction 34 Internal Rotation Behind Back (text) Lateral Hip Left Active Shoulder ROM WFL Yes Testing Position Sitting Flexion 170 Abduction 160 External Rotation at 0 degrees Abduction 45 Internal Rotation Behind Back (text) T10 Shoulder ROM Limitations Shoulder ROM Limitations Muscle Weakness,Pain Elbow/Forearm Range of Motion Elbow/Forearm Right Active Elbow/Forearm ROM WFL Yes ROM Testing Position Sitting PT-OP-M Strength Start: 07/25/23 17:38 Freq: Status: Active Protocol: Document 07/25/23 14:40 DCW (Rec: 07/26/23 10:58 DCW [id number]) Shoulder Strength Shoulder Manual Muscle Testing Right Flexion 2- Poor- Abduction (C5) 2- Poor- External Rotation 2- Poor- Internal Rotation 2- Poor- Elbow/Forearm Strength Elbow and Forearm Manual Muscle Testing Right Flexion (C6) 4+ Good+ Extension (C7) 4+ Good+ PT-OP-Q Treatments Start: 07/25/23 17:38 Freq: Status: Active Protocol: Document 08/18/23 15:09 AB (Rec: 08/18/23 16:31 AB [id number]) Cardio Equipment Upper Body Ergometer (UBE) Duration (Minutes) 2 Other machine off in standing, fwd/ back no revolutions, facilit at scap Therapeutic Exercises Sidelying Exercises ER Sidelying Exercise Name Shoulder ER AROM Side right Reps/Minutes X12 Comments Verbal cues, monitored for popping and pain Sitting Exercises table slide scaption Reps/Minutes X3 Comments discontinued due to popping sensation Standing Exercises isometric shoulder IR Side right Equipment Used into therapist's hand Reps/Minutes X1 Comments reports increased pain not guanaco isometric shoulder er Side right Reps/Minutes X1 into therapist's hand Comments not guanaco reports pain isometric shoulder abduction Side right Reps/Minutes X5 into therapist's hand X 5 into wall Comments verbal and visual cues monitored for pain and popping sensation isometric shoulder flexion Side right Reps/Minutes X5 into therapist's hand X 5 into wall Comments verbal and visual cues monitored for pain and popping sensation table slide scaption Side right Reps/Minutes X10 Comments verbal and visual cues monitored for pain and popping sensation scap squeeze Side bilateral Reps/Minutes 12 Comments verbal and visual cues monitored for pain and popping sensation L stretch Standing Exercise Name scaption positioning Side bilateral Reps/Minutes X10 Comments verbal and visual cues monitored for pain and popping sensation Manual Therapy Treatment Soft Tissue Mobilization right shoulder Body Location post cuf, UT, levator scap, sub deltoid area, scar tissue pec Mobilization Type Cross-Friction,Rolling Intensity/Depth Moderate Body Position Sidelying Comments and seated position, monitored for pain Joint Mobilizations Scapular Joint right scapula Direction into depression and adduction Grade III Body Position Sidelying Reps/Duration 12 each Comments monitored for pain Taping kinesotaping Treatment Focus for posture and to unload UT, levator scap Type of Tape kinesiotape Skin Inspection WNL Comments Pt ed to remove in 3-5 days or immediately if skin irritation occurs Manual Techniques manual resistance to shoulder adduction and depression Body Location right shoulder Body Position Sidelying Reps/Duration X10 Comments monitored for pain PROM right shoulder scaption Body Position Hooklying Reps/Duration X3 Comments Discontinued due to popping sensation PT-OP-T Assessment and Plan Start: 07/25/23 17:38 Freq: Status: Active Protocol: Document 08/18/23 15:09 AB (Rec: 08/18/23 16:31 AB [id number]) Physical Therapy Assessment Goals Two Impairment Severely limited AROM of right shoulder flexion (42?) and abduction (36?) Penitentiary Goal (LTG) Pt to demonstrate improved AROM to 100? 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 LTG Duration 09/24/23 One Impairment Pt does not have an appropriate home exercise program Short Term Goal (STG) Pt to be independent and compliant with an appropriate HEP STG Duration 08/25/23 Assessment Summary Assessment 45 deg AROM right shoulder scaption end of session. HEP progression and manual therapy significantly limited by popping/crepitus this session. Physical Therapy Plan Frequency and Duration Frequency of Treatment 2x/Week Plan of Care Start Date 07/25/23 Plan of Care End Date 09/24/23 Therapeutic Interventions Therapeutic Interventions Home Exercise Program,Joint Mobilizations,Manual Therapy, Neuromuscular Re-education, Patient/Caregiver Education, Self-Care/Home Management,Soft Tissue Mobilization,Taping, Therapeutic Activities, Therapeutic Exercises Modalities Cold Pack/Ice Massage,Electric Stimulation,Hot Packs, Ultrasound Next Visit Focus/Plan Next Note Type Treatment Note Next Visit Plan AAROM, strengthening Assess guanaco to kinesiotaping, possibly add isometric flexion and abduction to HEP if able to perform with light force and no pain, and assess guanaco to isometric IR and ER.
--- NOTE | 2023-08-23 15:06 | PT.OTN ---
Current Diagnoses Primary osteoarthritis, right shoulder (08/23/23) Pain in right shoulder (08/23/23) Stiffness of right shoulder, not elsewhere classified (08/23/23) Muscle weakness (generalized) (08/23/23) Physical Therapy Treatment Note PT-OP-A Visit Information Start: 07/25/23 17:38 Freq: Status: Active Protocol: Document 08/23/23 14:30 DCW (Rec: 08/23/23 15:06 DCW [id number]) Out-Patient Physical Therapy Visit Information Visit Information Visit Type Treatment Note Visit Start Time 14:30 Visit Stop Time 15:02 Visit Number 6 Number of TRANSCRIBER Visits 0 Evaluation Information Evaluation Date 07/25/23 Precautions Precautions Post-op protocol: Begin ROM at 6 weeks Begin Strengthening at 12 weeks PT-OP-B Current Condition Start: 07/25/23 17:38 Freq: Status: Active Protocol: Document 07/25/23 14:40 DCW (Rec: 07/25/23 17:47 DCW [id number]) Current Condition History of Current Condition Onset Date 04/22/24 Current Complaints Right shoulder pain, stiffness s/p revised TSA History of Current Condition Pt is a 72 year old male presenting three months s/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 Pt is now three months s/p revision, admits he has not done anything strenuous, minimal mobility of right shoulder since surgery, other than mild PROM using left arm. Pt does note he lives on a boat, and has had to do a little rowing, but otherwise has not had any exercise. Notes he was told to do pendulums pre-surgery, but hasn't done any after. PT-OP-C Subjective Start: 07/25/23 17:38 Freq: Status: Active Protocol: Document 08/23/23 14:30 DCW (Rec: 08/23/23 15:06 DCW [id number]) OP-PT Subjective Patient Comments Patient Comments I've had better days, pt notes shoulder is still quite sore. I've been trying to take it easy, but that's not always easy. PT-OP-K Range of Motion Start: 07/25/23 17:38 Freq: Status: Active Protocol: Document 07/25/23 14:40 DCW (Rec: 07/26/23 10:58 MNW [id number]) Shoulder Goniometric Range of Motion Shoulder Right Passive Testing Position Supine Flexion 140 Abduction 140 External Rotation at 0 degrees Abduction 65 Right Active Shoulder ROM WFL No Testing Position Sitting Flexion 42 Abduction 36 External Rotation at 0 degrees Abduction 34 Internal Rotation Behind Back (text) Lateral Hip Left Active Shoulder ROM WFL Yes Testing Position Sitting Flexion 170 Abduction 160 External Rotation at 0 degrees Abduction 45 Internal Rotation Behind Back (text) T10 Shoulder ROM Limitations Shoulder ROM Limitations Muscle Weakness,Pain Elbow/Forearm Range of Motion Elbow/Forearm Right Active Elbow/Forearm ROM WFL Yes ROM Testing Position Sitting PT-OP-M Strength Start: 07/25/23 17:38 Freq: Status: Active Protocol: Document 07/25/23 14:40 DCW (Rec: 07/26/23 10:58 [facility] [id number]) Shoulder Strength Shoulder Manual Muscle Testing Right Flexion 2- Poor- Abduction (C5) 2- Poor- External Rotation 2- Poor- Internal Rotation 2- Poor- Elbow/Forearm Strength Elbow and Forearm Manual Muscle Testing Right Flexion (C6) 4+ Good+ Extension (C7) 4+ Good+ PT-OP-Q Treatments Start: 07/25/23 17:38 Freq: Status: Active Protocol: Document 08/23/23 14:30 DCW (Rec: 08/23/23 15:06 DCW [id number]) Therapeutic Exercises Sitting Exercises ER Sitting Exercise Name Shoulder ER Side bilateral Resistance Lv 2 Shoulder Rolls Sitting Exercise Name SLOW Bkwd shoulder rolls Side bilateral Equipment Used seated Comments tactile cues for retraction/ slight depression, diminished crunching. PROM Sitting Exercise Name PROM - Flexion, Abduction, Circumduction Side right Standing Exercises Pronation/Supination Standing Exercise Name pronation/supination Side right Equipment Used Hammer Comments Into minimal shoulder flexion Curls Standing Exercise Name Biceps curls/Reverse Curls Side bilateral Resistance 3# Manual Therapy Treatment Soft Tissue Mobilization Parascapulars Body Location R Parascapulars: Rhomboid, Infraspin, Supraspin, Ser Ant, LS Mobilization Type Rolling,Sustained Pressure, Trigger Point Release,Other Intensity/Depth Moderate Body Position Sitting Comments gentle STMs, PROM scapula then gentle pressure MWM during FM : retraction/slight depression - reduction then diminished crunching discomfort superior angle of R scapula/distal LS. Joint Mobilizations Scapular Joint right scapula Direction into depression and adduction Grade III Body Position Sidelying Reps/Duration 12 each Comments monitored for pain Taping kinesotaping Treatment Focus for posture and to unload UT, levator scap Type of Tape kinesiotape Skin Inspection WNL Comments Pt ed to remove in 3-5 days or immediately if skin irritation occurs PT-OP-T Assessment and Plan Start: 07/25/23 17:38 Freq: Status: Active Protocol: Document 08/23/23 14:30 DCW (Rec: 08/23/23 15:06 DCW [id number]) Physical Therapy Assessment Impairments Impairments Activity Tolerance,Functional Activities,Functional Mobility ,Integument,Pain,ROM,Soft Tissue Mobility,Strength Goals Two Impairment Severely limited AROM of right shoulder flexion (42?) and abduction (36?) Long-Term Goal (LTG) Pt to demonstrate improved AROM to 100? 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 LTG Duration 09/24/23 One Impairment Pt does not have an appropriate home exercise program Short Term Goal (STG) Pt to be independent and compliant with an appropriate HEP STG Duration 08/25/23 Assessment Summary Assessment Pt sitting EOB today tried to use R arm to scoot forward, which caused episode of increased pain, able to use STM and PROM to decrease pain. Still very limited in participation due to shoulder instability and crepitus. Pt feeling much better with pain and mobility following K- taping, demonstrated increased AROM (50? flexion, 45? abduction) with no instances of popping Physical Therapy Plan Frequency and Duration Frequency of Treatment 2x/Week Plan of Care Start Date 07/25/23 Plan of Care End Date 09/24/23 Therapeutic Interventions Therapeutic Interventions Home Exercise Program,Joint Mobilizations,Manual Therapy, Neuromuscular Re-education, Patient/Caregiver Education, Self-Care/Home Management,Soft Tissue Mobilization,Taping, Therapeutic Activities, Therapeutic Exercises Modalities Cold Pack/Ice Massage,Electric Stimulation,Hot Packs, Ultrasound Next Visit Focus/Plan Next Note Type Treatment Note Next Visit Plan AAROM, strengthening Assess guanaco to kinesiotaping, possibly add isometric flexion and abduction to HEP if able to perform with light force and no pain, and assess guanaco to isometric IR and ER.
--- NOTE | 2023-08-25 15:11 | PT.OTN ---
Current Diagnoses Primary osteoarthritis, right shoulder (08/25/23) Pain in right shoulder (08/25/23) Stiffness of right shoulder, not elsewhere classified (08/25/23) Muscle weakness (generalized) (08/25/23) Physical Therapy Treatment Note PT-OP-A Visit Information Start: 07/25/23 17:38 Freq: Status: Active Protocol: Document 08/25/23 14:40 DCW (Rec: 08/25/23 15:11 DCW [id number]) Out-Patient Physical Therapy Visit Information Visit Information Visit Type Treatment Note Visit Note 10 minutes late Visit Start Time 14:40 Visit Stop Time 15:15 Visit Number 7 Number of ACID STRENGTH INSPECTOR Visits 0 Evaluation Information Evaluation Date 07/25/23 Precautions Precautions Post-op protocol: Begin ROM at 6 weeks Begin Strengthening at 12 weeks PT-OP-B Current Condition Start: 07/25/23 17:38 Freq: Status: Active Protocol: Document 07/25/23 14:40 DCW (Rec: 07/25/23 17:47 DCW [id number]) Current Condition History of Current Condition Onset Date 04/22/24 Current Complaints Right shoulder pain, stiffness s/p revised TSA History of Current Condition Pt is a 72 year old male presenting three months s/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 Pt is now three months s/p revision, admits he has not done anything strenuous, minimal mobility of right shoulder since surgery, other than mild PROM using left arm. Pt does note he lives on a boat, and has had to do a little rowing, but otherwise has not had any exercise. Notes he was told to do pendulums pre-surgery, but hasn't done any after. PT-OP-C Subjective Start: 07/25/23 17:38 Freq: Status: Active Protocol: Document 08/25/23 14:40 DCW (Rec: 08/25/23 15:11 DCW [id number]) OP-PT Subjective Patient Comments Patient Comments Pt admits he woke up pretty stiff today, almost didn't make it in. PT-OP-K Range of Motion Start: 07/25/23 17:38 Freq: Status: Active Protocol: Document 07/25/23 14:40 DCW (Rec: 07/26/23 10:58 DC [id number]) Shoulder Goniometric Range of Motion Shoulder Right Passive Testing Position Supine Flexion 140 Abduction 140 External Rotation at 0 degrees Abduction 65 Right Active Shoulder ROM WFL No Testing Position Sitting Flexion 42 Abduction 36 External Rotation at 0 degrees Abduction 34 Internal Rotation Behind Back (text) Lateral Hip Left Active Shoulder ROM WFL Yes Testing Position Sitting Flexion 170 Abduction 160 External Rotation at 0 degrees Abduction 45 Internal Rotation Behind Back (text) T10 Shoulder ROM Limitations Shoulder ROM Limitations Muscle Weakness,Pain Elbow/Forearm Range of Motion Elbow/Forearm Right Active Elbow/Forearm ROM WFL Yes ROM Testing Position Sitting PT-OP-M Strength Start: 07/25/23 17:38 Freq: Status: Active Protocol: Document 07/25/23 14:40 DCW (Rec: 07/26/23 10:58 [facility] [id number]) Shoulder Strength Shoulder Manual Muscle Testing Right Flexion 2- Poor- Abduction (C5) 2- Poor- External Rotation 2- Poor- Internal Rotation 2- Poor- Elbow/Forearm Strength Elbow and Forearm Manual Muscle Testing Right Flexion (C6) 4+ Good+ Extension (C7) 4+ Good+ PT-OP-Q Treatments Start: 07/25/23 17:38 Freq: Status: Active Protocol: Document 08/25/23 14:40 DCW (Rec: 08/25/23 15:11 DCW [id number]) Cardio Equipment Upper Body Ergometer (UBE) Duration (Minutes) 4 Other In standing, minimal revolutions Therapeutic Exercises Standing Exercises Wall slide Standing Exercise Name Wall slide - flexion Manual Therapy Treatment Soft Tissue Mobilization Parascapulars Body Location R Parascapulars: Rhomboid, Infraspin, Supraspin, Pec Mobilization Type Rolling,Sustained Pressure, Trigger Point Release,Other Intensity/Depth Moderate Body Position Sitting Comments gentle STMs, PROM scapula then gentle pressure MWM during FM : retraction/slight depression - reduction then diminished crunching discomfort superior angle of R scapula/distal LS. Joint Mobilizations Scapular Joint right scapula Direction into depression and adduction Grade III Body Position Sidelying Reps/Duration 12 each Comments monitored for pain Manual Techniques manual resistance to shoulder adduction and depression Body Location right shoulder Body Position Sitting Reps/Duration X10 Comments monitored for pain Other Other Manual Treatments PROM Shoulder circumduction PT-OP-T Assessment and Plan Start: 07/25/23 17:38 Freq: Status: Active Protocol: Document 08/25/23 14:40 DCW (Rec: 08/25/23 15:11 DCW [id number]) Physical Therapy Assessment Impairments Impairments Activity Tolerance,Functional Activities,Functional Mobility ,Integument,Pain,ROM,Soft Tissue Mobility,Strength Goals Two Impairment Severely limited AROM of right shoulder flexion (42?) and abduction (36?) Assisted Goal (LTG) Pt to demonstrate improved AROM to 100? 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 LTG Duration 09/24/23 One Impairment Pt does not have an appropriate home exercise program Short Term Goal (STG) Pt to be independent and compliant with an appropriate HEP STG Duration 08/25/23 Assessment Summary Assessment Continues to experience pain and popping/clicking with all movements. Did improve PROM with compression through the shoulder from therapist. Pt instructed to continue ROM and pain-free strengthening at home. Physical Therapy Plan Frequency and Duration Frequency of Treatment 2x/Week Plan of Care Start Date 07/25/23 Plan of Care End Date 09/24/23 Therapeutic Interventions Therapeutic Interventions Home Exercise Program,Joint Mobilizations,Manual Therapy, Neuromuscular Re-education, Patient/Caregiver Education, Self-Care/Home Management,Soft Tissue Mobilization,Taping, Therapeutic Activities, Therapeutic Exercises Modalities Cold Pack/Ice Massage,Electric Stimulation,Hot Packs, Ultrasound Next Visit Focus/Plan Next Note Type Treatment Note Next Visit Plan AAROM, strengthening Assess guanaco to kinesiotaping, possibly add isometric flexion and abduction to HEP if able to perform with light force and no pain, and assess guanaco to isometric IR and ER.
--- NOTE | 2023-09-01 15:35 | PT.OTN ---
Current Diagnoses Primary osteoarthritis, right shoulder (09/01/23) Pain in right shoulder (09/01/23) Stiffness of right shoulder, not elsewhere classified (09/01/23) Muscle weakness (generalized) (09/01/23) Physical Therapy Treatment Note PT-OP-A Visit Information Start: 07/25/23 17:38 Freq: Status: Active Protocol: Document 09/01/23 13:00 AB (Rec: 09/01/23 15:34 AB [id number]) Out-Patient Physical Therapy Visit Information Visit Information Visit Type Treatment Note Visit Note Access Code [email or web address] Visit Start Time 14:34 Visit Stop Time 15:20 Visit Number 8 Number of STAFFING OPERATIONS MANAGER Visits 1 Evaluation Information Evaluation Date 07/25/23 Precautions Precautions Post-op protocol: Begin ROM at 6 weeks Begin Strengthening at 12 weeks PT-OP-B Current Condition Start: 07/25/23 17:38 Freq: Status: Active Protocol: Document 07/25/23 14:40 DCW (Rec: 07/25/23 17:47 DCW [id number]) Current Condition History of Current Condition Onset Date 04/22/24 Current Complaints Right shoulder pain, stiffness s/p revised TSA History of Current Condition Pt is a 72 year old male presenting three months s/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 Pt is now three months s/p revision, admits he has not done anything strenuous, minimal mobility of right shoulder since surgery, other than mild PROM using left arm. Pt does note he lives on a boat, and has had to do a little rowing, but otherwise has not had any exercise. Notes he was told to do pendulums pre-surgery, but hasn't done any after. PT-OP-C Subjective Start: 07/25/23 17:38 Freq: Status: Active Protocol: Document 09/01/23 13:00 AB (Rec: 09/01/23 15:34 AB [id number]) OP-PT Subjective Patient Comments Patient Comments Patient reports the shoulder is sore today, reports the taped help when questioned regarding tape. AROM right shoulder scaption 55 deg PT-OP-K Range of Motion Start: 07/25/23 17:38 Freq: Status: Active Protocol: Document 07/25/23 14:40 DCW (Rec: 07/26/23 10:58 DC [id number]) Shoulder Goniometric Range of Motion Shoulder Right Passive Testing Position Supine Flexion 140 Abduction 140 External Rotation at 0 degrees Abduction 65 Right Active Shoulder ROM WFL No Testing Position Sitting Flexion 42 Abduction 36 External Rotation at 0 degrees Abduction 34 Internal Rotation Behind Back (text) Lateral Hip Left Active Shoulder ROM WFL Yes Testing Position Sitting Flexion 170 Abduction 160 External Rotation at 0 degrees Abduction 45 Internal Rotation Behind Back (text) T10 Shoulder ROM Limitations Shoulder ROM Limitations Muscle Weakness,Pain Elbow/Forearm Range of Motion Elbow/Forearm Right Active Elbow/Forearm ROM WFL Yes ROM Testing Position Sitting PT-OP-M Strength Start: 07/25/23 17:38 Freq: Status: Active Protocol: Document 07/25/23 14:40 DCW (Rec: 07/26/23 10:58 DC [id number]) Shoulder Strength Shoulder Manual Muscle Testing Right Flexion 2- Poor- Abduction (C5) 2- Poor- External Rotation 2- Poor- Internal Rotation 2- Poor- Elbow/Forearm Strength Elbow and Forearm Manual Muscle Testing Right Flexion (C6) 4+ Good+ Extension (C7) 4+ Good+ PT-OP-Q Treatments Start: 07/25/23 17:38 Freq: Status: Active Protocol: Document 09/01/23 13:00 AB (Rec: 09/01/23 15:34 AB [id number]) Therapeutic Exercises Sidelying Exercises scapular retraction Side right Reps/Minutes X10 Sitting Exercises table slide scaption Side right Reps/Minutes X10 Comments Good return demonstration post verbal and visual cues Standing Exercises high row Side bilateral Resistance peach band Reps/Minutes X3 Comments not guanaco isometric shoulder IR Side right Equipment Used into therapist's hand Reps/Minutes X1X2 Comments reports increased pain not guanaco isometric shoulder er Side right Reps/Minutes X5 X 2 Comments initiated seated, improved guanaco standing isometric shoulder abduction Side right Reps/Minutes 10X Comments verbal and visual cues monitored for pain and popping sensation isometric shoulder flexion Side right Reps/Minutes X10 Comments verbal and visual cues monitored for pain and popping sensation L stretch Standing Exercise Name scaption positioning Side bilateral Reps/Minutes X1 Comments not guanaco post row Rows Standing Exercise Name Rows Side bilateral Resistance peach band level one Reps/Minutes X15 then X 2 Comments reports popping and pain on second set Manual Therapy Treatment Soft Tissue Mobilization right shoulder Body Location post cuf, UT, levator scap, sub deltoid area, scar tissue pec Mobilization Type Cross-Friction,Rolling Intensity/Depth Moderate Body Position Sidelying Comments and seated position, monitored for pain Joint Mobilizations Scapular Joint right scapula Direction into depression and adduction Grade III Body Position Sidelying Reps/Duration 12 each Comments monitored for pain Taping kinesotaping Treatment Focus for posture and to unload UT, levator scap Type of Tape kinesiotape Skin Inspection WNL Comments Pt ed to remove in 3-5 days or immediately if skin irritation occurs Manual Techniques manual resistance to shoulder adduction and depression Body Location right shoulder Body Position Sidelying Reps/Duration X10 PROM right shoulder scaption Body Position Hooklying Reps/Duration X2 Comments Discontinued due pain PT-OP-T Assessment and Plan Start: 07/25/23 17:38 Freq: Status: Active Protocol: Document 09/01/23 13:00 AB (Rec: 09/01/23 15:34 AB [id number]) Physical Therapy Assessment Goals Two Impairment Severely limited AROM of right shoulder flexion (42?) and abduction (36?) Hollow Ware Maker Goal (LTG) Pt to demonstrate improved AROM to 100? 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 LTG Duration 09/24/23 One Impairment Pt does not have an appropriate home exercise program Short Term Goal (STG) Pt to be independent and compliant with an appropriate HEP STG Duration 08/25/23 Assessment Summary Assessment Improved tolerance to table slide scaption this session, but reports popping and pain with row. AROM right shoulder scaption 50 deg end of session , possibly due to fatigue. Physical Therapy Plan Frequency and Duration Frequency of Treatment 2x/Week Plan of Care Start Date 07/25/23 Plan of Care End Date 09/24/23 Next Visit Focus/Plan Next Note Type Treatment Note Next Visit Plan AAROM, strengthening assess tolerance to isometrics , add to HEP if tolerated
--- NOTE | 2023-09-06 16:27 | PT.OTN ---
Current Diagnoses Primary osteoarthritis, right shoulder (09/06/23) Pain in right shoulder (09/06/23) Stiffness of right shoulder, not elsewhere classified (09/06/23) Muscle weakness (generalized) (09/06/23) Physical Therapy Treatment Note PT-OP-A Visit Information Start: 07/25/23 17:38 Freq: Status: Active Protocol: Document 09/06/23 14:33 AB (Rec: 09/06/23 15:18 AB [id number]) Out-Patient Physical Therapy Visit Information Visit Information Visit Type Treatment Note Visit Note Access Code [email or web address] Visit Start Time 14:33 Visit Stop Time 15:13 Evaluation Information Evaluation Date 07/25/23 Precautions Precautions Post-op protocol: Begin ROM at 6 weeks Begin Strengthening at 12 weeks PT-OP-B Current Condition Start: 07/25/23 17:38 Freq: Status: Active Protocol: Document 07/25/23 14:40 DCW (Rec: 07/25/23 17:47 DCW [id number]) Current Condition History of Current Condition Onset Date 04/22/24 Current Complaints Right shoulder pain, stiffness s/p revised TSA History of Current Condition Pt is a 72 year old male presenting three months s/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 Pt is now three months s/p revision, admits he has not done anything strenuous, minimal mobility of right shoulder since surgery, other than mild PROM using left arm. Pt does note he lives on a boat, and has had to do a little rowing, but otherwise has not had any exercise. Notes he was told to do pendulums pre-surgery, but hasn't done any after. PT-OP-C Subjective Start: 07/25/23 17:38 Freq: Status: Active Protocol: Document 09/06/23 14:33 AB (Rec: 09/06/23 15:18 AB [id number]) OP-PT Subjective Patient Comments Patient Comments Right hand with inc swelling compared to left, with patient commenting his whole body is swollen ( Pt advised to make MD aware. ) Patient rates right shoulder pain 8/10 start of session. AROM right shoulder flexion 53 deg start of session PT-OP-K Range of Motion Start: 07/25/23 17:38 Freq: Status: Active Protocol: Document 07/25/23 14:40 DCW (Rec: 07/26/23 10:58 DCW [id number]) Shoulder Goniometric Range of Motion Shoulder Right Passive Testing Position Supine Flexion 140 Abduction 140 External Rotation at 0 degrees Abduction 65 Right Active Shoulder ROM WFL No Testing Position Sitting Flexion 42 Abduction 36 External Rotation at 0 degrees Abduction 34 Internal Rotation Behind Back (text) Lateral Hip Left Active Shoulder ROM WFL Yes Testing Position Sitting Flexion 170 Abduction 160 External Rotation at 0 degrees Abduction 45 Internal Rotation Behind Back (text) T10 Shoulder ROM Limitations Shoulder ROM Limitations Muscle Weakness,Pain Elbow/Forearm Range of Motion Elbow/Forearm Right Active Elbow/Forearm ROM WFL Yes ROM Testing Position Sitting PT-OP-M Strength Start: 07/25/23 17:38 Freq: Status: Active Protocol: Document 07/25/23 14:40 DCW (Rec: 07/26/23 10:58 DCW [id number]) Shoulder Strength Shoulder Manual Muscle Testing Right Flexion 2- Poor- Abduction (C5) 2- Poor- External Rotation 2- Poor- Internal Rotation 2- Poor- Elbow/Forearm Strength Elbow and Forearm Manual Muscle Testing Right Flexion (C6) 4+ Good+ Extension (C7) 4+ Good+ PT-OP-Q Treatments Start: 07/25/23 17:38 Freq: Status: Active Protocol: Document 09/06/23 14:33 AB (Rec: 09/06/23 15:18 AB [id number]) Therapeutic Exercises Supine Exercises Flexion Supine Exercise Name hands clasped and reclined Reps/Minutes X10 Sidelying Exercises ER Sidelying Exercise Name Shoulder ER AROM Side right Reps/Minutes X15 Comments Verbal cues, monitored for popping and pain Sitting Exercises gripping Side right Comments X20 Standing Exercises high row Side bilateral Resistance peach band Reps/Minutes X3 Comments not guanaco Wall slide Standing Exercise Name Wall slide - flexion on forearms Side bilateral Reps/Minutes X2 Comments not guanaco isometric shoulder abduction Side right Reps/Minutes 10X Comments verbal and visual cues monitored for pain and popping sensation isometric shoulder flexion Side right Reps/Minutes X10 Comments verbal and visual cues monitored for pain and popping sensation Rows Standing Exercise Name Rows Side bilateral Resistance peach band level one Reps/Minutes X15X 2 Comments VC to avoid extending past torso Other Exercises reclined shoulder flexion Other Exercise Name hands clasped Reps/Minutes X2 Comments not guanaco, reports popping Manual Therapy Treatment Soft Tissue Mobilization right shoulder Body Location post cuf, UT, levator scap, sub deltoid area, scar tissue pec Mobilization Type Cross-Friction,Rolling Intensity/Depth Moderate Body Position Sidelying Comments and seated position, monitored for pain Joint Mobilizations Scapular Joint right scapula Direction into depression and adduction Grade III Body Position Sidelying Reps/Duration 12 each Comments monitored for pain Taping kinesotaping Treatment Focus for posture and to unload UT, levator scap Type of Tape kinesiotape Skin Inspection WNL Comments Pt ed to remove in 3-5 days or immediately if skin irritation occurs Manual Techniques manual resistance to shoulder adduction and depression Body Location right shoulder Body Position Sidelying Reps/Duration X10 PROM right shoulder scaption Body Position Hooklying Reps/Duration X10 PT-OP-T Assessment and Plan Start: 07/25/23 17:38 Freq: Status: Active Protocol: Document 09/06/23 14:33 AB (Rec: 09/06/23 15:18 AB [id number]) Physical Therapy Assessment Goals Two Impairment Severely limited AROM of right shoulder flexion (42?) and abduction (36?) Fdc Goal (LTG) Pt to demonstrate improved AROM to 100? 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 LTG Duration 09/24/23 One Impairment Pt does not have an appropriate home exercise program Short Term Goal (STG) Pt to be independent and compliant with an appropriate HEP STG Duration 08/25/23 Assessment Summary Assessment AROM right shoulder flexion 53 deg end of session with patient commenting the tape feels good, and increased tolerance to isometrics and row with band this session. Physical Therapy Plan Frequency and Duration Frequency of Treatment 2x/Week Plan of Care Start Date 07/25/23 Plan of Care End Date 09/24/23 Next Visit Focus/Plan Next Note Type Treatment Note Next Visit Plan AAROM, strengthening assess tolerance to isometrics , add to HEP if tolerated supine shoulder flexion with hands clasped trial reclined/ supine/wall slide on forearms, sidelying ER AROM to HEP
--- NOTE | 2023-09-08 15:15 | PT.OTN ---
Current Diagnoses Primary osteoarthritis, right shoulder (09/08/23) Pain in right shoulder (09/08/23) Stiffness of right shoulder, not elsewhere classified (09/08/23) Muscle weakness (generalized) (09/08/23) Physical Therapy Treatment Note PT-OP-A Visit Information Start: 07/25/23 17:38 Freq: Status: Active Protocol: Document 09/08/23 14:30 DCW (Rec: 09/08/23 15:15 DCW [id number]) Out-Patient Physical Therapy Visit Information Visit Information Visit Type Treatment Note Visit Start Time 14:30 Visit Stop Time 15:15 Visit Number 10 Number of OFFICE SERVICES ASSOCIATE Visits 0 Evaluation Information Evaluation Date 07/25/23 Precautions Precautions Post-op protocol: Begin ROM at 6 weeks Begin Strengthening at 12 weeks PT-OP-B Current Condition Start: 07/25/23 17:38 Freq: Status: Active Protocol: Document 07/25/23 14:40 DCW (Rec: 07/25/23 17:47 DCW [id number]) Current Condition History of Current Condition Onset Date 04/22/24 Current Complaints Right shoulder pain, stiffness s/p revised TSA History of Current Condition Pt is a 72 year old male presenting three months s/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 Pt is now three months s/p revision, admits he has not done anything strenuous, minimal mobility of right shoulder since surgery, other than mild PROM using left arm. Pt does note he lives on a boat, and has had to do a little rowing, but otherwise has not had any exercise. Notes he was told to do pendulums pre-surgery, but hasn't done any after. PT-OP-C Subjective Start: 07/25/23 17:38 Freq: Status: Active Protocol: Document 09/08/23 14:30 DCW (Rec: 09/08/23 15:15 DCW [id number]) OP-PT Subjective Patient Comments Patient Comments I've had a rough day. Notes his shoulder is swollen and painful, his ankle is pretty swollen, and it's just been a bad day. PT-OP-K Range of Motion Start: 07/25/23 17:38 Freq: Status: Active Protocol: Document 07/25/23 14:40 DCW (Rec: 03/19/24 10:58 [facility] [id number]) Shoulder Goniometric Range of Motion Shoulder Right Passive Testing Position Supine Flexion 140 Abduction 140 External Rotation at 0 degrees Abduction 65 Right Active Shoulder ROM WFL No Testing Position Sitting Flexion 42 Abduction 36 External Rotation at 0 degrees Abduction 34 Internal Rotation Behind Back (text) Lateral Hip Left Active Shoulder ROM WFL Yes Testing Position Sitting Flexion 170 Abduction 160 External Rotation at 0 degrees Abduction 45 Internal Rotation Behind Back (text) T10 Shoulder ROM Limitations Shoulder ROM Limitations Muscle Weakness,Pain Elbow/Forearm Range of Motion Elbow/Forearm Right Active Elbow/Forearm ROM WFL Yes ROM Testing Position Sitting PT-OP-M Strength Start: 07/25/23 17:38 Freq: Status: Active Protocol: Document 07/25/23 14:40 DCW (Rec: 07/26/23 10:58 [facility] [id number]) Shoulder Strength Shoulder Manual Muscle Testing Right Flexion 2- Poor- Abduction (C5) 2- Poor- External Rotation 2- Poor- Internal Rotation 2- Poor- Elbow/Forearm Strength Elbow and Forearm Manual Muscle Testing Right Flexion (C6) 4+ Good+ Extension (C7) 4+ Good+ PT-OP-Q Treatments Start: 07/25/23 17:38 Freq: Status: Active Protocol: Document 09/08/23 14:30 DCW (Rec: 09/08/23 15:15 DCW [id number]) Therapeutic Exercises Sidelying Exercises Abduction Sidelying Exercise Name Shoulder Abduction Side right Equipment Used 2# Comments monitored for popping and pain ER Sidelying Exercise Name Shoulder ER AROM Side right Equipment Used 2# Reps/Minutes X15 Comments Verbal cues, monitored for popping and pain Sitting Exercises Pro/Supination Sitting Exercise Name Forearm Pronation/Supination Side right Resistance 2# gripping Sitting Exercise Name T-band Flexbar Side bilateral Resistance Red Reps/Minutes Flex up/down, twist Standing Exercises Abduction Standing Exercise Name Shoulder Abduction Side bilateral Resistance Cane Comments pain-free ROM, avoid UT activation Flexion Standing Exercise Name Shoulder Flexion Side bilateral Resistance Cane Comments pain-free ROM, avoid UT activation Manual Therapy Treatment Soft Tissue Mobilization right shoulder Body Location post cuf, UT, levator scap, sub deltoid area, scar tissue pec Mobilization Type Cross-Friction,Rolling Intensity/Depth Moderate Body Position Sidelying Comments and seated position, monitored for pain Joint Mobilizations Scapular Joint right scapula Direction into depression and adduction Grade III Body Position Sidelying Reps/Duration 12 each Comments monitored for pain Taping kinesotaping Treatment Focus for posture and to unload UT, levator scap Type of Tape kinesiotape Skin Inspection WNL Comments 2 Y-strips along Deltoid, 1 Y- strip across bicipital groove Pt ed to remove in 3-5 days or immediately if skin irritation occurs Manual Techniques PROM right shoulder scaption Body Position Hooklying Reps/Duration X10 PT-OP-T Assessment and Plan Start: 07/25/23 17:38 Freq: Status: Active Protocol: Document 09/08/23 14:30 DCW (Rec: 09/08/23 15:15 DCW [id number]) Physical Therapy Assessment Impairments Impairments Activity Tolerance,Functional Activities,Functional Mobility ,Integument,Pain,ROM,Soft Tissue Mobility,Strength Goals Two Impairment Severely limited AROM of right shoulder flexion (42?) and abduction (36?) Chief Marketing Officer Goal (LTG) Pt to demonstrate improved AROM to 100? 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 LTG Duration 09/24/23 - Improving One Impairment Pt does not have an appropriate home exercise program Short Term Goal (STG) Pt to be independent and compliant with an appropriate HEP STG Duration 08/25/23 - Improving Assessment Summary Assessment Pt exhibiting slow but consistent progress with shoulder mobility, demonstrating a more natural arm swing during gait. Continue to work on active and passive ROM in order to improve functional independence and return to prior level of function. Physical Therapy Plan Frequency and Duration Frequency of Treatment 2x/Week Plan of Care Start Date 07/25/23 Plan of Care End Date 09/24/23 Next Visit Focus/Plan Next Note Type Treatment Note Next Visit Plan AAROM, strengthening assess tolerance to isometrics , add to HEP if tolerated supine shoulder flexion with hands clasped trial reclined/ supine/wall slide on forearms, sidelying ER AROM to HEP
--- NOTE | 2023-09-13 15:59 | PT.OTN ---
Current Diagnoses Primary osteoarthritis, right shoulder (09/13/23) Pain in right shoulder (09/13/23) Stiffness of right shoulder, not elsewhere classified (09/13/23) Muscle weakness (generalized) (09/13/23) Physical Therapy Treatment Note PT-OP-A Visit Information Start: 07/25/23 17:38 Freq: Status: Active Protocol: Document 09/13/23 15:25 DCW (Rec: 09/13/23 15:59 DCW [id number]) Out-Patient Physical Therapy Visit Information Visit Information Visit Type Treatment Note Visit Start Time 15:25 Visit Stop Time 16:00 Visit Number 11 Number of CUSHION MAKER Visits 0 Evaluation Information Evaluation Date 07/25/23 Precautions Precautions Post-op protocol: Begin ROM at 6 weeks Begin Strengthening at 12 weeks PT-OP-B Current Condition Start: 07/25/23 17:38 Freq: Status: Active Protocol: Document 07/25/23 14:40 DCW (Rec: 07/25/23 17:47 DCW [id number]) Current Condition History of Current Condition Onset Date 04/22/24 Current Complaints Right shoulder pain, stiffness s/p revised TSA History of Current Condition Pt is a 72 year old male presenting three months s/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 Pt is now three months s/p revision, admits he has not done anything strenuous, minimal mobility of right shoulder since surgery, other than mild PROM using left arm. Pt does note he lives on a boat, and has had to do a little rowing, but otherwise has not had any exercise. Notes he was told to do pendulums pre-surgery, but hasn't done any after. PT-OP-C Subjective Start: 07/25/23 17:38 Freq: Status: Active Protocol: Document 09/13/23 15:25 DCW (Rec: 09/13/23 15:59 DCW [id number]) OP-PT Subjective Patient Comments Patient Comments It's off and on. Better than when it was just constantly hurting. PT-OP-K Range of Motion Start: 07/25/23 17:38 Freq: Status: Active Protocol: Document 07/25/23 14:40 DCW (Rec: 07/26/23 10:58 DCW [id number]) Shoulder Goniometric Range of Motion Shoulder Right Passive Testing Position Supine Flexion 140 Abduction 140 External Rotation at 0 degrees Abduction 65 Right Active Shoulder ROM WFL No Testing Position Sitting Flexion 42 Abduction 36 External Rotation at 0 degrees Abduction 34 Internal Rotation Behind Back (text) Lateral Hip Left Active Shoulder ROM WFL Yes Testing Position Sitting Flexion 170 Abduction 160 External Rotation at 0 degrees Abduction 45 Internal Rotation Behind Back (text) T10 Shoulder ROM Limitations Shoulder ROM Limitations Muscle Weakness,Pain Elbow/Forearm Range of Motion Elbow/Forearm Right Active Elbow/Forearm ROM WFL Yes ROM Testing Position Sitting PT-OP-M Strength Start: 07/25/23 17:38 Freq: Status: Active Protocol: Document 07/25/23 14:40 DCW (Rec: 07/26/23 10:58 VA[facility] [id number]) Shoulder Strength Shoulder Manual Muscle Testing Right Flexion 2- Poor- Abduction (C5) 2- Poor- External Rotation 2- Poor- Internal Rotation 2- Poor- Elbow/Forearm Strength Elbow and Forearm Manual Muscle Testing Right Flexion (C6) 4+ Good+ Extension (C7) 4+ Good+ PT-OP-Q Treatments Start: 07/25/23 17:38 Freq: Status: Active Protocol: Document 09/13/23 15:25 DCW (Rec: 09/13/23 15:59 DCW [id number]) Cardio Equipment Upper Body Ergometer (UBE) Duration (Minutes) 4 Height 6 Other In standing, full revolutions Therapeutic Exercises Standing Exercises Wall slide Standing Exercise Name Wall slide - flexion on forearms Side right Abduction Standing Exercise Name Shoulder Abduction Side bilateral Resistance Cane Comments PROM Flexion Standing Exercise Name Shoulder Flexion Side bilateral Resistance Cane Comments AROM Rows Standing Exercise Name Rows Side bilateral Resistance Green Reps/Minutes x20 Manual Therapy Treatment Soft Tissue Mobilization right shoulder Body Location post cuf, UT, levator scap, sub deltoid area, scar tissue pec Mobilization Type Cross-Friction,Rolling Intensity/Depth Moderate Body Position Sidelying Comments and seated position, monitored for pain Joint Mobilizations Scapular Joint right scapula Direction into depression and adduction Grade III Body Position Sidelying Reps/Duration 12 each Comments monitored for pain Taping kinesotaping Treatment Focus for posture and to unload UT, levator scap Type of Tape kinesiotape Skin Inspection WNL Comments 2 Y-strips along Deltoid, 1 Y- strip across bicipital groove Pt ed to remove in 3-5 days or immediately if skin irritation occurs PT-OP-T Assessment and Plan Start: 07/25/23 17:38 Freq: Status: Active Protocol: Document 09/13/23 15:25 DCW (Rec: 09/13/23 15:59 DCW [id number]) Physical Therapy Assessment Impairments Impairments Activity Tolerance,Functional Activities,Functional Mobility ,Integument,Pain,ROM,Soft Tissue Mobility,Strength Goals Two Impairment Severely limited AROM of right shoulder flexion (42?) and abduction (36?) Nursing Home Goal (LTG) Pt to demonstrate improved AROM to 100? 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 pain-free shoulder flexion. Very good response to K-tape. Physical Therapy Plan Frequency and Duration Frequency of Treatment 2x/Week Plan of Care Start Date 07/25/23 Plan of Care End Date 09/24/23 Next Visit Focus/Plan Next Note Type Treatment Note Next Visit Plan AAROM, strengthening assess tolerance to isometrics , add to HEP if tolerated supine shoulder flexion with hands clasped trial reclined/ supine/wall slide on forearms, sidelying ER AROM to HEP
--- NOTE | 2023-09-15 16:09 | PT.OTN ---
Current Diagnoses Primary osteoarthritis, right shoulder (09/15/23) Pain in right shoulder (09/15/23) Stiffness of right shoulder, not elsewhere classified (09/15/23) Muscle weakness (generalized) (09/15/23) Physical Therapy Treatment Note PT-OP-A Visit Information Start: 07/25/23 17:38 Freq: Status: Active Protocol: Document 09/15/23 15:17 AB (Rec: 09/15/23 16:07 AB [id number]) Out-Patient Physical Therapy Visit Information Visit Information Visit Type Treatment Note Visit Note Access Code [email or web address] Visit Start Time 15:18 Visit Stop Time 16:02 Visit Number 12 Number of PRODUCTION COOK Visits 1 Evaluation Information Evaluation Date 07/25/23 Precautions Precautions Post-op protocol: Begin ROM at 6 weeks Begin Strengthening at 12 weeks PT-OP-B Current Condition Start: 07/25/23 17:38 Freq: Status: Active Protocol: Document 07/25/23 14:40 DCW (Rec: 07/25/23 17:47 DCW [id number]) Current Condition History of Current Condition Onset Date 04/22/24 Current Complaints Right shoulder pain, stiffness s/p revised TSA History of Current Condition Pt is a 72 year old male presenting three months s/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 Pt is now three months s/p revision, admits he has not done anything strenuous, minimal mobility of right shoulder since surgery, other than mild PROM using left arm. Pt does note he lives on a boat, and has had to do a little rowing, but otherwise has not had any exercise. Notes he was told to do pendulums pre-surgery, but hasn't done any after. PT-OP-C Subjective Start: 07/25/23 17:38 Freq: Status: Active Protocol: Document 09/15/23 15:17 AB (Rec: 09/15/23 16:07 AB [id number]) OP-PT Subjective Patient Comments Patient Comments Patient reports the shoulder feels swollen and sore. Patient reports that he got a good work out previous session . AROM right shoulder flexion 60 deg start of session, abduction 50 with increased UT activation. PT-OP-K Range of Motion Start: 07/25/23 17:38 Freq: Status: Active Protocol: Document 07/25/23 14:40 DCW (Rec: 07/26/23 10:58 DCW [id number]) Shoulder Goniometric Range of Motion Shoulder Right Passive Testing Position Supine Flexion 140 Abduction 140 External Rotation at 0 degrees Abduction 65 Right Active Shoulder ROM WFL No Testing Position Sitting Flexion 42 Abduction 36 External Rotation at 0 degrees Abduction 34 Internal Rotation Behind Back (text) Lateral Hip Left Active Shoulder ROM WFL Yes Testing Position Sitting Flexion 170 Abduction 160 External Rotation at 0 degrees Abduction 45 Internal Rotation Behind Back (text) T10 Shoulder ROM Limitations Shoulder ROM Limitations Muscle Weakness,Pain Elbow/Forearm Range of Motion Elbow/Forearm Right Active Elbow/Forearm ROM WFL Yes ROM Testing Position Sitting PT-OP-M Strength Start: 07/25/23 17:38 Freq: Status: Active Protocol: Document 07/25/23 14:40 DCW (Rec: 07/26/23 10:58 DCW [id number]) Shoulder Strength Shoulder Manual Muscle Testing Right Flexion 2- Poor- Abduction (C5) 2- Poor- External Rotation 2- Poor- Internal Rotation 2- Poor- Elbow/Forearm Strength Elbow and Forearm Manual Muscle Testing Right Flexion (C6) 4+ Good+ Extension (C7) 4+ Good+ PT-OP-Q Treatments Start: 07/25/23 17:38 Freq: Status: Active Protocol: Document 09/15/23 15:17 AB (Rec: 09/15/23 16:07 AB [id number]) Therapeutic Exercises Supine Exercises Flexion Supine Exercise Name hands clasped supine and reclined Resistance light blue band Reps/Minutes without band X5,10 sec X1 with band X5 reclined with elbows, bent&extended Comments Verbal cues to provide slight resistance when lowering Sidelying Exercises ER Sidelying Exercise Name Shoulder ER AROM Side right Reps/Minutes X15 Comments Verbal cues, monitored for popping and pain Standing Exercises isometric shoulder IR Standing Exercise Name isometric reactive Side right Resistance level one band Reps/Minutes X15 isometric shoulder er Standing Exercise Name isometric reactive Side right Resistance level one band Reps/Minutes X15 isometric shoulder abduction Side right Reps/Minutes 3X Comments reports increased popping isometric shoulder flexion Side right Reps/Minutes X10 Comments verbal and visual cues monitored for pain and popping sensation Rows Standing Exercise Name Rows Side bilateral Resistance Green Reps/Minutes X15 Manual Therapy Treatment Soft Tissue Mobilization right shoulder Body Location post cuf, UT, levator scap, sub deltoid area, scar tissue pec Mobilization Type Cross-Friction,Rolling Intensity/Depth Moderate Body Position Sidelying Joint Mobilizations Scapular Joint right scapula Direction into depression and adduction Grade III Body Position Sidelying Reps/Duration 12 each Comments monitored for pain Manual Techniques manual resistance to shoulder adduction and depression Body Location right shoulder Body Position Sidelying Reps/Duration X10 PT-OP-T Assessment and Plan Start: 07/25/23 17:38 Freq: Status: Active Protocol: Document 09/15/23 15:17 AB (Rec: 09/15/23 16:07 AB [id number]) Physical Therapy Assessment Goals Two Impairment Severely limited AROM of right shoulder flexion (42?) and abduction (36?) 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 LTG Duration 09/24/23 - Improving One Impairment Pt does not have an appropriate home exercise program Short Term Goal (STG) Pt to be independent and compliant with an appropriate HEP STG Duration 08/25/23 - Improving Assessment Summary Assessment AROM 64 deg end of session right shoulder flexion end of session. Good tolerance to isometric reactive shoulder IR and ER with level one band this session. decreased guanaco to 1/2 foam roller and pool noodle set up for back stretch due to reports of back pain on attempt Physical Therapy Plan Frequency and Duration Frequency of Treatment 2x/Week Plan of Care Start Date 07/25/23 Plan of Care End Date 09/24/23 Next Visit Focus/Plan Next Note Type Treatment Note Next Visit Plan AAROM, strengthening assess tolerance to isometrics , add to HEP if tolerated supine shoulder flexion with hands clasped trial reclined/ supine/wall slide on forearms, sidelying ER AROM to HEP, possibly trial of pec stretch
--- NOTE | 2023-09-20 16:26 | PT.OTN ---
Current Diagnoses Primary osteoarthritis, right shoulder (09/20/23) Pain in right shoulder (09/20/23) Stiffness of right shoulder, not elsewhere classified (09/20/23) Muscle weakness (generalized) (09/20/23) Physical Therapy Treatment Note PT-OP-A Visit Information Start: 07/25/23 17:38 Freq: Status: Active Protocol: Document 09/20/23 12:50 AB (Rec: 09/20/23 16:25 AB [id number]) Out-Patient Physical Therapy Visit Information Visit Information Visit Type Treatment Note Visit Note Access Code [id number] 08/16 for PN Visit Start Time 14:40 Visit Stop Time 15:15 Visit Number 13 Number of TAR HEATER Visits 2 Evaluation Information Evaluation Date 07/25/23 Precautions Precautions Post-op protocol: Begin ROM at 6 weeks Begin Strengthening at 12 weeks PT-OP-B Current Condition Start: 07/25/23 17:38 Freq: Status: Active Protocol: Document 07/25/23 14:40 DCW (Rec: 07/25/23 17:47 DCW [id number]) Current Condition History of Current Condition Onset Date 04/22/24 Current Complaints Right shoulder pain, stiffness s/p revised TSA History of Current Condition Pt is a 72 year old male presenting three months s/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 Pt is now three months s/p revision, admits he has not done anything strenuous, minimal mobility of right shoulder since surgery, other than mild PROM using left arm. Pt does note he lives on a boat, and has had to do a little rowing, but otherwise has not had any exercise. Notes he was told to do pendulums pre-surgery, but hasn't done any after. PT-OP-C Subjective Start: 07/25/23 17:38 Freq: Status: Active Protocol: Document 09/20/23 12:50 AB (Rec: 09/20/23 16:25 AB [id number]) OP-PT Subjective Patient Comments Patient Comments Patient late. Patient reports the shoulder is sore. Patient comments the new exercises are not bad. AROM right shoulder flexion 62 deg start of session. PT-OP-K Range of Motion Start: 07/25/23 17:38 Freq: Status: Active Protocol: Document 07/25/23 14:40 DCW (Rec: 07/26/23 10:58 [facility] [id number]) Shoulder Goniometric Range of Motion Shoulder Right Passive Testing Position Supine Flexion 140 Abduction 140 External Rotation at 0 degrees Abduction 65 Right Active Shoulder ROM WFL No Testing Position Sitting Flexion 42 Abduction 36 External Rotation at 0 degrees Abduction 34 Internal Rotation Behind Back (text) Lateral Hip Left Active Shoulder ROM WFL Yes Testing Position Sitting Flexion 170 Abduction 160 External Rotation at 0 degrees Abduction 45 Internal Rotation Behind Back (text) T10 Shoulder ROM Limitations Shoulder ROM Limitations Muscle Weakness,Pain Elbow/Forearm Range of Motion Elbow/Forearm Right Active Elbow/Forearm ROM WFL Yes ROM Testing Position Sitting PT-OP-M Strength Start: 07/25/23 17:38 Freq: Status: Active Protocol: Document 07/25/23 14:40 DCW (Rec: 07/26/23 10:58 [facility] [id number]) Shoulder Strength Shoulder Manual Muscle Testing Right Flexion 2- Poor- Abduction (C5) 2- Poor- External Rotation 2- Poor- Internal Rotation 2- Poor- Elbow/Forearm Strength Elbow and Forearm Manual Muscle Testing Right Flexion (C6) 4+ Good+ Extension (C7) 4+ Good+ PT-OP-Q Treatments Start: 07/25/23 17:38 Freq: Status: Active Protocol: Document 09/20/23 12:50 AB (Rec: 09/20/23 16:25 AB [id number]) Therapeutic Exercises Sitting Exercises short sit/side sit to upright Side bilateral Reps/Minutes 5X 2 Comments seated side sitting to leaning on forearm with push into upright (elbow ext Standing Exercises isometric shoulder IR Standing Exercise Name isometric reactive Side right Resistance level one band Reps/Minutes X15 isometric shoulder er Standing Exercise Name isometric reactive Side right Resistance level one band Reps/Minutes X15 Other Exercises reclined shoulder flexion Reps/Minutes X3 and X 1 with level one band Comments not guanaco Manual Therapy Treatment Soft Tissue Mobilization right shoulder Body Location post cuf, UT, levator scap, Biceps added, sub deltoid area , scar tissue pec Mobilization Type Cross-Friction,Rolling Intensity/Depth Moderate Body Position Sidelying Comments and hooklying Joint Mobilizations Scapular Joint right scapula Direction into depression and adduction Grade III Body Position Sidelying Reps/Duration 10 each Comments monitored for pain Manual Techniques manual resistance to shoulder adduction and depression Body Location right shoulder Body Position Sidelying Reps/Duration X10 PT-OP-T Assessment and Plan Start: 07/25/23 17:38 Freq: Status: Active Protocol: Document 09/20/23 12:50 AB (Rec: 09/20/23 16:25 AB [id number]) Physical Therapy Assessment Goals Two Impairment Severely limited AROM of right shoulder flexion (42?) and abduction (36?) Nursing Home Goal (LTG) Pt to demonstrate improved AROM to 100? 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 LTG Duration 09/24/23 - Improving One Impairment Pt does not have an appropriate home exercise program Short Term Goal (STG) Pt to be independent and compliant with an appropriate HEP STG Duration 08/25/23 - Improving Assessment Summary Assessment AROM 64 deg right shoulder flexion end of session with patient reporting feeling good . Physical Therapy Plan Frequency and Duration Frequency of Treatment 2x/Week Plan of Care Start Date 07/25/23 Plan of Care End Date 09/24/23 Next Visit Focus/Plan Next Note Type Treatment Note Next Visit Plan AAROM, strengthening trial of wall slide on forearms, sidelying ER AROM to HEP,
--- NOTE | 2023-10-14 12:44 | PT.OTN ---
Current Diagnoses Primary osteoarthritis, right shoulder (10/14/23) Pain in right shoulder (10/14/23) Stiffness of right shoulder, not elsewhere classified (10/14/23) Muscle weakness (generalized) (10/14/23) Physical Therapy Treatment Note PT-OP-A Visit Information Start: 07/25/23 17:38 Freq: Status: Active Protocol: Document 10/14/23 12:00 DCW (Rec: 10/14/23 12:43 DCW [id number]) Out-Patient Physical Therapy Visit Information Visit Information Visit Type Progress Note Visit Start Time 12:00 Visit Stop Time 12:45 Visit Number 14 Number of GENERAL PARTNER Visits 0 Evaluation Information Evaluation Date 07/25/23 PT-OP-B Current Condition Start: 07/25/23 17:38 Freq: Status: Active Protocol: Document 07/25/23 14:40 DCW (Rec: 07/25/23 17:47 DCW [id number]) Current Condition History of Current Condition Onset Date 04/22/24 Current Complaints Right shoulder pain, stiffness s/p revised TSA History of Current Condition Pt is a 72 year old male presenting three months s/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 Pt is now three months s/p revision, admits he has not done anything strenuous, minimal mobility of right shoulder since surgery, other than mild PROM using left arm. Pt does note he lives on a boat, and has had to do a little rowing, but otherwise has not had any exercise. Notes he was told to do pendulums pre-surgery, but hasn't done any after. PT-OP-C Subjective Start: 07/25/23 17:38 Freq: Status: Active Protocol: Document 10/14/23 12:00 DCW (Rec: 10/14/23 12:43 DCW [id number]) OP-PT Subjective Patient Comments Patient Comments I'm hurting today. PT-OP-K Range of Motion Start: 07/25/23 17:38 Freq: Status: Active Protocol: Document 10/14/23 12:00 DCW (Rec: 10/14/23 12:09 DCW [id number]) Shoulder Goniometric Range of Motion Shoulder Right Active Shoulder ROM WFL No Testing Position Sitting Flexion 76 Abduction 59 External Rotation at 0 degrees Abduction 40 Internal Rotation Behind Back (text) R SI PT-OP-M Strength Start: 07/25/23 17:38 Freq: Status: Active Protocol: Document 10/14/23 12:00 DCW (Rec: 10/14/23 12:09 DCW [id number]) Shoulder Strength Shoulder Manual Muscle Testing Right Flexion 2- Poor- Abduction (C5) 2- Poor- External Rotation 2- Poor- Internal Rotation 2- Poor- PT-OP-Q Treatments Start: 07/25/23 17:38 Freq: Status: Active Protocol: Document 10/14/23 12:00 DCW (Rec: 10/14/23 12:43 DCW [id number]) Therapeutic Exercises Standing Exercises ER Standing Exercise Name Moving shoulder through ER while holding 90? elbow flexion Side right Resistance 2# PNF Standing Exercise Name D2 UE PNF flexion Side right Resistance 1# Wall slide Standing Exercise Name Wall slide - flexion on forearms Side right Abduction Standing Exercise Name Shoulder Abduction Side bilateral Resistance Cane Comments PROM Flexion Standing Exercise Name Shoulder Flexion Side bilateral Resistance Cane Comments AAROM Adduction Standing Exercise Name Shoulder Adduction Side right Resistance Green Extension Standing Exercise Name Shoulder Extension Side bilateral Resistance Green Rows Standing Exercise Name Rows Side bilateral Resistance Green Reps/Minutes X15 Manual Therapy Treatment Soft Tissue Mobilization right shoulder Body Location post cuf, UT, levator scap, Biceps added, sub deltoid area , scar tissue pec Mobilization Type Cross-Friction,Rolling Intensity/Depth Moderate Body Position Sidelying Comments and hooklying Taping kinesotaping Treatment Focus for posture and to unload UT, levator scap Type of Tape kinesiotape Skin Inspection WNL Comments 2 Y-strips along Deltoid, 1 Y- strip across bicipital groove Pt ed to remove in 3-5 days or immediately if skin irritation occurs PT-OP-T Assessment and Plan Start: 07/25/23 17:38 Freq: Status: Active Protocol: Document 10/14/23 12:00 DCW (Rec: 10/14/23 12:43 DCW [id number]) Physical Therapy Assessment Goals Two Impairment Severely limited AROM of right shoulder flexion (42?) and abduction (36?) Public Health Physician Goal (LTG) Pt to demonstrate improved AROM to 100? 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 from initial evaluation, abduction increased 23?. Pt still exhibits pain, weakness, and joint instability with nearly all motions, significantly limiting his participation in his typical daily activities. With joint approximation during wall slides, pt able to get to 139? PROM/AAROM. Continue to focus on shoulder stabilization and strengthening, as well as return to functional activity Physical Therapy Plan Frequency and Duration Frequency of Treatment 2x/Week Plan of Care Start Date 10/14/23 Plan of Care End Date 12/14/23 Therapeutic Interventions Therapeutic Interventions Home Exercise Program,Joint Mobilizations,Manual Therapy, Neuromuscular Re-education, Patient/Caregiver Education, Self-Care/Home Management,Soft Tissue Mobilization,Taping, Therapeutic Activities, Therapeutic Exercises Modalities Cold Pack/Ice Massage,Electric Stimulation,Hot Packs, Ultrasound Next Visit Focus/Plan Next Note Type Treatment Note Next Visit Plan AAROM, strengthening, isometrics
--- NOTE | 2023-10-14 12:44 | PT.OPPOC ---
Physical, Occupational & Speech Therapy At [facility] Current Diagnoses Primary osteoarthritis, right shoulder (10/14/23) Pain in right shoulder (10/14/23) Stiffness of right shoulder, not elsewhere classified (10/14/23) Muscle weakness (generalized) (10/14/23) Visit Care Team Role Provider Type Doctor Talia, Family Provider Non-Staff Specialty: Medical Address: Phone: Fax: Email: Donovan James MD Attending Provider Physician Referring Provider Specialty: Orthopedics Orthopedic Surgery Address: [address] [place] [address], [id number] Email: [email or web address] Plan Of Care PT-OP-T Assessment and Plan Start: 07/25/23 17:38 Freq: Status: Active Protocol: Document 10/14/23 12:00 DCW (Rec: 10/14/23 12:43 DCW [id number]) Physical Therapy Assessment Goals Two Impairment Severely limited AROM of right shoulder flexion (42?) and abduction (36?) Fdc Goal (LTG) Pt to demonstrate improved AROM to 100? 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 from initial evaluation, abduction increased 23?. Pt still exhibits pain, weakness, and joint instability with nearly all motions, significantly limiting his participation in his typical daily activities. With joint approximation during wall slides, pt able to get to 139? PROM/AAROM. Continue to focus on shoulder stabilization and strengthening, as well as return to functional activity Physical Therapy Plan Frequency and Duration Frequency of Treatment 2x/Week Plan of Care Start Date 10/14/23 Plan of Care End Date 12/14/23 Therapeutic Interventions Therapeutic Interventions Home Exercise Program,Joint Mobilizations,Manual Therapy, Neuromuscular Re-education, Patient/Caregiver Education, Self-Care/Home Management,Soft Tissue Mobilization,Taping, Therapeutic Activities, Therapeutic Exercises Modalities Cold Pack/Ice Massage,Electric Stimulation,Hot Packs, Ultrasound Next Visit Focus/Plan Next Note Type Treatment Note Next Visit Plan AAROM, strengthening, isometrics Plan of Care Dates Plan of Care Start Date 10/14/23 Plan of Care End Date 12/14/23 Electronically Signed by: Jonathan Dejesus, PT 10/14/23 9162 If you are in agreement with this Plan of Care, please return a signed and dated copy. I have reviewed this Plan of Care and certify that the skilled therapy services above are required to meet the patient?s needs. Physician Signature Date Printed Name and Credentials Clinical Instructor Signature Printed Name and Credentials
--- NOTE | 2023-10-18 16:35 | PT.OTN ---
Current Diagnoses Primary osteoarthritis, right shoulder (10/18/23) Pain in right shoulder (10/18/23) Stiffness of right shoulder, not elsewhere classified (10/18/23) Muscle weakness (generalized) (10/18/23) Physical Therapy Treatment Note PT-OP-A Visit Information Start: 07/25/23 17:38 Freq: Status: Active Protocol: Document 10/18/23 13:41 AB (Rec: 10/18/23 14:26 AB [id number]) Out-Patient Physical Therapy Visit Information Visit Information Visit Type Treatment Note Visit Note Access Code [email or web address] Visit Start Time 13:53 Visit Stop Time 14:28 Visit Number 15 Number of TRUSS MAKER Visits 1 Evaluation Information Evaluation Date 07/25/23 Precautions Precautions Post-op protocol: Begin ROM at 6 weeks Begin Strengthening at 12 weeks PT-OP-B Current Condition Start: 07/25/23 17:38 Freq: Status: Active Protocol: Document 07/25/23 14:40 DCW (Rec: 07/25/23 17:47 DCW [id number]) Current Condition History of Current Condition Onset Date 04/22/24 Current Complaints Right shoulder pain, stiffness s/p revised TSA History of Current Condition Pt is a 72 year old male presenting three months s/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 Pt is now three months s/p revision, admits he has not done anything strenuous, minimal mobility of right shoulder since surgery, other than mild PROM using left arm. Pt does note he lives on a boat, and has had to do a little rowing, but otherwise has not had any exercise. Notes he was told to do pendulums pre-surgery, but hasn't done any after. PT-OP-C Subjective Start: 07/25/23 17:38 Freq: Status: Active Protocol: Document 10/18/23 13:41 AB (Rec: 10/18/23 14:26 AB [id number]) OP-PT Subjective Patient Comments Patient Comments Patient reports shoulder is tender, but is ready for therapy. AROM right shoulder flexion 78 deg PT-OP-K Range of Motion Start: 07/25/23 17:38 Freq: Status: Active Protocol: Document 10/14/23 12:00 DCW (Rec: 10/14/23 12:09 DCW [id number]) Shoulder Goniometric Range of Motion Shoulder Right Active Shoulder ROM WFL No Testing Position Sitting Flexion 76 Abduction 59 External Rotation at 0 degrees Abduction 40 Internal Rotation Behind Back (text) R SI PT-OP-M Strength Start: 07/25/23 17:38 Freq: Status: Active Protocol: Document 10/14/23 12:00 DCW (Rec: 10/14/23 12:09 DCW [id number]) Shoulder Strength Shoulder Manual Muscle Testing Right Flexion 2- Poor- Abduction (C5) 2- Poor- External Rotation 2- Poor- Internal Rotation 2- Poor- PT-OP-Q Treatments Start: 07/25/23 17:38 Freq: Status: Active Protocol: Document 10/18/23 13:41 AB (Rec: 10/18/23 14:26 AB [id number]) Therapeutic Exercises Sidelying Exercises ER Sidelying Exercise Name Shoulder ER AROM Side right Reps/Minutes X15 Comments Verbal cues, monitored for popping and pain Sitting Exercises short sit/side sit to upright Reps/Minutes X15 Standing Exercises scapular depression Side bilateral Resistance level one band Reps/Minutes X15 Comments verbal Wall slide Standing Exercise Name Wall slide - flexion on forearms Side right Reps/Minutes X10 Comments Verbal and visual cues Other Exercises reclined shoulder flexion Other Exercise Name hands clasped Reps/Minutes X1 X 2 Comments not guanaco Manual Therapy Treatment Soft Tissue Mobilization right shoulder Body Location post cuf, UT, levator scap, sub deltoid area, scar tissue pec Mobilization Type Cross-Friction,Rolling Intensity/Depth Moderate Body Position Sidelying Comments and hooklying Joint Mobilizations Scapular Joint right scapula Direction into depression and adduction Grade III Body Position Sidelying Reps/Duration 10 each Comments monitored for pain Taping kinesotaping Treatment Focus for posture and to unload UT, levator scap Type of Tape kinesiotape Skin Inspection WNL Comments from ant right shoulder to rhombiods, UT and levator scap inster to origin with patient in stretch. 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 LTG Duration 12/14/23 - Improving One Impairment Pt does not have an appropriate home exercise program Short Term Goal (STG) Pt to be independent and compliant with an appropriate HEP STG Duration 11/13/23 - Improving Assessment Summary Assessment AROM right shoulder flexion to 80 deg end of session in standing. Davon reports right shoulder pain end of sesison is his normal pain. Patient late this session. Physical Therapy Plan Frequency and Duration Frequency of Treatment 2x/Week Plan of Care Start Date 10/14/23 Plan of Care End Date 12/14/23 Next Visit Focus/Plan Next Note Type Treatment Note Next Visit Plan AAROM, strengthening, isometrics/possibly in varying Range of motion, revisit tolerance to reclined shoulder flexion
--- NOTE | 2023-10-25 16:47 | PT.OTN ---
Current Diagnoses Primary osteoarthritis, right shoulder (10/25/23) Pain in right shoulder (10/25/23) Stiffness of right shoulder, not elsewhere classified (10/25/23) Muscle weakness (generalized) (10/25/23) Physical Therapy Treatment Note PT-OP-A Visit Information Start: 07/25/23 17:38 Freq: Status: Active Protocol: Document 10/25/23 16:21 DCW (Rec: 10/25/23 16:47 DCW [id number]) Out-Patient Physical Therapy Visit Information Visit Information Visit Type Treatment Note Visit Note Arrived 21 minutes late Visit Start Time 16:21 Visit Stop Time 16:45 Visit Number 16 Number of CYLINDER DIE MACHINE HELPER Visits 0 Evaluation Information Evaluation Date 07/25/23 PT-OP-B Current Condition Start: 07/25/23 17:38 Freq: Status: Active Protocol: Document 07/25/23 14:40 DCW (Rec: 07/25/23 17:47 DCW [id number]) Current Condition History of Current Condition Onset Date 04/22/24 Current Complaints Right shoulder pain, stiffness s/p revised TSA History of Current Condition Pt is a 72 year old male presenting three months s/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 Pt is now three months s/p revision, admits he has not done anything strenuous, minimal mobility of right shoulder since surgery, other than mild PROM using left arm. Pt does note he lives on a boat, and has had to do a little rowing, but otherwise has not had any exercise. Notes he was told to do pendulums pre-surgery, but hasn't done any after. PT-OP-C Subjective Start: 07/25/23 17:38 Freq: Status: Active Protocol: Document 10/25/23 16:21 DCW (Rec: 10/25/23 16:47 DCW [id number]) OP-PT Subjective Patient Comments Patient Comments Some days it's worse than others, but pretty much, if I' m awake, it's hurting. PT-OP-K Range of Motion Start: 07/25/23 17:38 Freq: Status: Active Protocol: Document 10/14/23 12:00 DCW (Rec: 10/14/23 12:09 DCW [id number]) Shoulder Goniometric Range of Motion Shoulder Right Active Shoulder ROM WFL No Testing Position Sitting Flexion 76 Abduction 59 External Rotation at 0 degrees Abduction 40 Internal Rotation Behind Back (text) R SI PT-OP-M Strength Start: 07/25/23 17:38 Freq: Status: Active Protocol: Document 10/14/23 12:00 DCW (Rec: 10/14/23 12:09 ARW [id number]) Shoulder Strength Shoulder Manual Muscle Testing Right Flexion 2- Poor- Abduction (C5) 2- Poor- External Rotation 2- Poor- Internal Rotation 2- Poor- PT-OP-Q Treatments Start: 07/25/23 17:38 Freq: Status: Active Protocol: Document 10/25/23 16:21 DCW (Rec: 10/25/23 16:47 [facility] [id number]) Therapeutic Exercises Standing Exercises Chest Press Standing Exercise Name Overhead press /c PVC Side bilateral Adduction Standing Exercise Name Shoulder Adduction Side right Resistance Green Extension Standing Exercise Name Shoulder Extension Side bilateral Resistance Green Rows Standing Exercise Name Rows Side bilateral Resistance Green Reps/Minutes X15 Manual Therapy Treatment Soft Tissue Mobilization right shoulder Body Location post cuf, UT, levator scap, Biceps added, sub deltoid area , scar tissue pec Mobilization Type Cross-Friction,Rolling Intensity/Depth Moderate Body Position Sidelying Comments and hooklying Taping kinesotaping Treatment Focus for posture and to unload UT, levator scap Type of Tape kinesiotape Skin Inspection WNL Comments 2 Y-strips along Deltoid, 1 Y- strip across bicipital groove PT-OP-T Assessment and Plan Start: 07/25/23 17:38 Freq: Status: Active Protocol: Document 10/25/23 16:21 DCW (Rec: 10/25/23 16:47 [facility] [id number]) Physical Therapy Assessment Impairments Impairments Activity Tolerance,Functional Activities,Functional Mobility ,Integument,Pain,ROM,Soft Tissue Mobility,Strength Goals Two Impairment Severely limited AROM of right shoulder flexion (42?) and abduction (36?) Residential Goal (LTG) Pt to demonstrate improved AROM to 100? 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 Continues to make incremental progress, but notes he is performing more functional activities outside of therapy. Physical Therapy Plan Frequency and Duration Frequency of Treatment 2x/Week Plan of Care Start Date 10/14/23 Plan of Care End Date 12/14/23 Therapeutic Interventions Therapeutic Interventions Home Exercise Program,Joint Mobilizations,Manual Therapy, Neuromuscular Re-education, Patient/Caregiver Education, Self-Care/Home Management,Soft Tissue Mobilization,Taping, Therapeutic Activities, Therapeutic Exercises Modalities Cold Pack/Ice Massage,Electric Stimulation,Hot Packs, Ultrasound Next Visit Focus/Plan Next Note Type Treatment Note Next Visit Plan AAROM, strengthening, isometrics/possibly in varying Range of motion, revisit tolerance to reclined shoulder flexion
--- NOTE | 2023-11-03 16:23 | PT.OTN ---
Current Diagnoses Primary osteoarthritis, right shoulder (11/03/23) Pain in right shoulder (11/03/23) Stiffness of right shoulder, not elsewhere classified (11/03/23) Muscle weakness (generalized) (11/03/23) Physical Therapy Treatment Note PT-OP-A Visit Information Start: 07/25/23 17:38 Freq: Status: Active Protocol: Document 11/03/23 13:01 AB (Rec: 11/03/23 16:23 AB [id number]) Out-Patient Physical Therapy Visit Information Visit Information Visit Note Access Code [email or web address] Visit Start Time 13:49 Visit Stop Time 14:31 Visit Number 17 Number of ELECTRICAL DESIGN TECHNICIAN Visits 1 Evaluation Information Evaluation Date 07/25/23 Precautions Precautions Post-op protocol: Begin ROM at 6 weeks Begin Strengthening at 12 weeks PT-OP-B Current Condition Start: 07/25/23 17:38 Freq: Status: Active Protocol: Document 07/25/23 14:40 DCW (Rec: 07/25/23 17:47 DCW [id number]) Current Condition History of Current Condition Onset Date 04/22/24 Current Complaints Right shoulder pain, stiffness s/p revised TSA History of Current Condition Pt is a 72 year old male presenting three months s/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 Pt is now three months s/p revision, admits he has not done anything strenuous, minimal mobility of right shoulder since surgery, other than mild PROM using left arm. Pt does note he lives on a boat, and has had to do a little rowing, but otherwise has not had any exercise. Notes he was told to do pendulums pre-surgery, but hasn't done any after. PT-OP-C Subjective Start: 07/25/23 17:38 Freq: Status: Active Protocol: Document 11/03/23 13:01 AB (Rec: 11/03/23 16:23 AB [id number]) OP-PT Subjective Patient Comments Patient Comments Patient reports the shoulder is popping and moving more. Patient reports reports a lot of popping when moving. Patient reports he can much use the shoulder, but when he feels he is going to pull apart he stops. 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 AROM right shoulder scaption 84 deg start of session. PT-OP-K Range of Motion Start: 07/25/23 17:38 Freq: Status: Active Protocol: Document 10/14/23 12:00 DCW (Rec: 10/14/23 12:09 DCW [id number]) Shoulder Goniometric Range of Motion Shoulder Right Active Shoulder ROM WFL No Testing Position Sitting Flexion 76 Abduction 59 External Rotation at 0 degrees Abduction 40 Internal Rotation Behind Back (text) R SI PT-OP-M Strength Start: 07/25/23 17:38 Freq: Status: Active Protocol: Document 10/14/23 12:00 DCW (Rec: 10/14/23 12:09 DCW [id number]) Shoulder Strength Shoulder Manual Muscle Testing Right Flexion 2- Poor- Abduction (C5) 2- Poor- External Rotation 2- Poor- Internal Rotation 2- Poor- PT-OP-Q Treatments Start: 07/25/23 17:38 Freq: Status: Active Protocol: Document 11/03/23 13:01 AB (Rec: 11/03/23 16:23 AB [id number]) Therapeutic Exercises Sitting Exercises table slide scaption Side right Reps/Minutes X3 X 2 seated and standing trials Comments not guanaco end of session Standing Exercises scapular depression Side bilateral Resistance level one band Reps/Minutes X15 Comments verbal cues to keep UE in sight high row Side bilateral Resistance level 2 Reps/Minutes X15 Comments verbal cues to extend past body Wall slide Standing Exercise Name Wall slide - flexion on forearms Side right Resistance with and without level one band(ER) Reps/Minutes X2 X 2 Comments Verbal and visual cues, not guanaco isometric shoulder IR Standing Exercise Name isometric reactive Side right Resistance level one band Reps/Minutes X15 isometric shoulder er Standing Exercise Name isometric reactive Side right Resistance level one band Reps/Minutes X10 Rows Standing Exercise Name Rows Side bilateral Resistance Green Reps/Minutes X15 Manual Therapy Treatment Soft Tissue Mobilization right shoulder Body Location post cuf, UT, levator scap, Biceps added, sub deltoid area , scar tissue pec Mobilization Type Cross-Friction,Rolling Intensity/Depth Moderate Body Position Sidelying Comments and hooklying Joint Mobilizations Scapular Joint right scapula Direction into depression and adduction Grade III Body Position Sidelying Reps/Duration 10 each Comments monitored for pain Taping kinesotaping Body Location Pt ed to bring to session for training in taping Treatment Focus for posture and to unload UT, levator scap Type of Tape kinesiotape Skin Inspection WNL Comments from ant right shoulder to rhombiods, UT and levator scap inster to origin with patient in stretch. Manual Techniques manual resistance to shoulder adduction and depression Body Location right shoulder Body Position Sidelying Reps/Duration X10 PT-OP-T Assessment and Plan Start: 07/25/23 17:38 Freq: Status: Active Protocol: Document 11/03/23 13:01 AB (Rec: 11/03/23 16:23 AB [id number]) Physical Therapy Assessment Goals Two Impairment Severely limited AROM of right shoulder flexion (42?) and abduction (36?) Long-Term Goal (LTG) Pt to demonstrate improved AROM to 100? 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 LTG Duration 12/14/23 - Improving One Impairment Pt does not have an appropriate home exercise program Short Term Goal (STG) Pt to be independent and compliant with an appropriate HEP STG Duration 11/13/23 - Improving Assessment Summary Assessment AROM 78 deg flexion end of session likely due to fatigue, Unable to perform wall or table slides without increased pain, difficulty and popping Physical Therapy Plan Frequency and Duration Frequency of Treatment 2x/Week Plan of Care Start Date 10/14/23 Plan of Care End Date 12/14/23 Next Visit Focus/Plan Next Note Type Treatment Note Next Visit Plan AAROM, strengthening, isometrics/possibly in varying Range of motion, revisit tolerance to reclined shoulder flexion
--- NOTE | 2023-11-08 09:51 | PT.OTN ---
Current Diagnoses Primary osteoarthritis, right shoulder (11/08/23) Pain in right shoulder (11/08/23) Stiffness of right shoulder, not elsewhere classified (11/08/23) Muscle weakness (generalized) (11/08/23) Physical Therapy Treatment Note PT-OP-A Visit Information Start: 07/25/23 17:38 Freq: Status: Active Protocol: Document 11/08/23 08:10 AB (Rec: 11/08/23 09:50 AB [id number]) Out-Patient Physical Therapy Visit Information Visit Information Visit Type Treatment Note Visit Note Access Code [email or web address] Visit Start Time 09:05 Visit Stop Time 09:46 Visit Number 18 Number of MANAGER INFORMATION Visits 2 Evaluation Information Evaluation Date 07/25/23 Precautions Precautions Post-op protocol: Begin ROM at 6 weeks Begin Strengthening at 12 weeks PT-OP-B Current Condition Start: 07/25/23 17:38 Freq: Status: Active Protocol: Document 07/25/23 14:40 DCW (Rec: 07/25/23 17:47 DCW [id number]) Current Condition History of Current Condition Onset Date 04/22/24 Current Complaints Right shoulder pain, stiffness s/p revised TSA History of Current Condition Pt is a 72 year old male presenting three months s/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 Pt is now three months s/p revision, admits he has not done anything strenuous, minimal mobility of right shoulder since surgery, other than mild PROM using left arm. Pt does note he lives on a boat, and has had to do a little rowing, but otherwise has not had any exercise. Notes he was told to do pendulums pre-surgery, but hasn't done any after. PT-OP-C Subjective Start: 07/25/23 17:38 Freq: Status: Active Protocol: Document 11/08/23 08:10 AB (Rec: 11/08/23 09:50 AB [id number]) OP-PT Subjective Patient Comments Patient Comments Patient reports he is sore all over today especially the shoulder, reports he was working on the boat. PT-OP-K Range of Motion Start: 07/25/23 17:38 Freq: Status: Active Protocol: Document 10/14/23 12:00 DCW (Rec: 10/14/23 12:09 DCW [id number]) Shoulder Goniometric Range of Motion Shoulder Right Active Shoulder ROM WFL No Testing Position Sitting Flexion 76 Abduction 59 External Rotation at 0 degrees Abduction 40 Internal Rotation Behind Back (text) R SI PT-OP-M Strength Start: 07/25/23 17:38 Freq: Status: Active Protocol: Document 10/14/23 12:00 DCW (Rec: 10/14/23 12:09 DCW [id number]) Shoulder Strength Shoulder Manual Muscle Testing Right Flexion 2- Poor- Abduction (C5) 2- Poor- External Rotation 2- Poor- Internal Rotation 2- Poor- PT-OP-Q Treatments Start: 07/25/23 17:38 Freq: Status: Active Protocol: Document 11/08/23 08:10 AB (Rec: 11/08/23 09:50 AB [id number]) Therapeutic Exercises Sidelying Exercises sidelying IR AROM Sidelying Exercise Name AROM Side right Reps/Minutes X4 Comments Verbal and tactile cues, not guanaco Standing Exercises scapular depression Side bilateral Resistance level2 band Reps/Minutes X15 Comments verbal cues to keep UE in sight high row Side bilateral Resistance level 2 Reps/Minutes X15 Comments verbal cues to extend past body isometric shoulder IR Standing Exercise Name isometric reactive Side right Resistance level one band Reps/Minutes X15 X2 with folded pillow and towel roll X 15 each isometric shoulder er Standing Exercise Name isometric reactive Side right Resistance level one band Reps/Minutes X10 isometric shoulder abduction Standing Exercise Name abd, add isometric reactive Side right Resistance level one band Reps/Minutes X 15 each Comments verbal and visual cues isometric shoulder flexion Standing Exercise Name with UE at side flex and ext isometric reactive Side right Resistance level one band Reps/Minutes X15 each Comments verbal and visual cues Manual Therapy Treatment Soft Tissue Mobilization right shoulder Body Location scar tissue pec Mobilization Type Cross-Friction,Rolling Intensity/Depth Moderate Body Position Sidelying Comments and hooklying Joint Mobilizations Scapular Joint right scapula Direction into depression and adduction Grade III Body Position Sidelying Reps/Duration 10 each Comments monitored for pain Manual Techniques manual resistance to shoulder adduction and depression Body Location right shoulder Body Position Sidelying Reps/Duration X10 PROM right shoulder scaption Body Position Hooklying Reps/Duration X3 PT-OP-T Assessment and Plan Start: 07/25/23 17:38 Freq: Status: Active Protocol: Document 11/08/23 08:10 AB (Rec: 11/08/23 09:50 AB [id number]) Physical Therapy Assessment Goals Two Impairment Severely limited AROM of right shoulder flexion (42?) and abduction (36?) Mcfp Goal (LTG) Pt to demonstrate improved AROM to 100? 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 Physical Therapy Plan Frequency and Duration Frequency of Treatment 2x/Week Plan of Care Start Date 10/14/23 Plan of Care End Date 12/14/23 Next Visit Focus/Plan Next Note Type Treatment Note Next Visit Plan AAROM, strengthening, assess guanaco to isometric reactives added to HEP last session and in clinic isometrics in varying Range of motion, revisit tolerance to reclined shoulder flexion
--- NOTE | 2023-11-18 14:38 | PT.OTN ---
Current Diagnoses Primary osteoarthritis, right shoulder (11/18/23) Pain in right shoulder (11/18/23) Stiffness of right shoulder, not elsewhere classified (11/18/23) Muscle weakness (generalized) (11/18/23) Physical Therapy Treatment Note PT-OP-A Visit Information Start: 07/25/23 17:38 Freq: Status: Active Protocol: Document 11/18/23 12:58 AB (Rec: 11/18/23 14:38 AB [id number]) Out-Patient Physical Therapy Visit Information Visit Information Visit Type Treatment Note Visit Note Access Code [email or web address] Visit Start Time 13:50 Visit Stop Time 14:36 Visit Number 19 Number of PAYROLL TECHNICIAN Visits 3 Evaluation Information Evaluation Date 07/25/23 Precautions Precautions Post-op protocol: Begin ROM at 6 weeks Begin Strengthening at 12 weeks PT-OP-B Current Condition Start: 07/25/23 17:38 Freq: Status: Active Protocol: Document 07/25/23 14:40 DCW (Rec: 07/25/23 17:47 DCW [id number]) Current Condition History of Current Condition Onset Date 04/22/24 Current Complaints Right shoulder pain, stiffness s/p revised TSA History of Current Condition Pt is a 72 year old male presenting three months s/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 Pt is now three months s/p revision, admits he has not done anything strenuous, minimal mobility of right shoulder since surgery, other than mild PROM using left arm. Pt does note he lives on a boat, and has had to do a little rowing, but otherwise has not had any exercise. Notes he was told to do pendulums pre-surgery, but hasn't done any after. PT-OP-C Subjective Start: 07/25/23 17:38 Freq: Status: Active Protocol: Document 11/18/23 12:58 AB (Rec: 11/18/23 14:38 AB [id number]) OP-PT Subjective Patient Comments Patient Comments Patient reports a new development the past few days the arm is crunching, when walking, with no pain. AROM right shoulder flexion 91 deg post isometrics. PT-OP-K Range of Motion Start: 07/25/23 17:38 Freq: Status: Active Protocol: Document 10/14/23 12:00 DCW (Rec: 10/14/23 12:09 DCW [id number]) Shoulder Goniometric Range of Motion Shoulder Right Active Shoulder ROM WFL No Testing Position Sitting Flexion 76 Abduction 59 External Rotation at 0 degrees Abduction 40 Internal Rotation Behind Back (text) R SI PT-OP-M Strength Start: 07/25/23 17:38 Freq: Status: Active Protocol: Document 10/14/23 12:00 DCW (Rec: 10/14/23 12:09 DCW [id number]) Shoulder Strength Shoulder Manual Muscle Testing Right Flexion 2- Poor- Abduction (C5) 2- Poor- External Rotation 2- Poor- Internal Rotation 2- Poor- PT-OP-Q Treatments Start: 07/25/23 17:38 Freq: Status: Active Protocol: Document 11/18/23 12:58 AB (Rec: 11/18/23 14:38 AB [id number]) Cardio Equipment Upper Body Ergometer (UBE) Duration (Minutes) 4 Height 7 Other In standing, full revolutions1 min fwd 3 min retro Therapeutic Exercises Standing Exercises scapular depression Side bilateral Resistance level 3 band Reps/Minutes X15 Comments verbal cues to keep UE in sight high row Side bilateral Resistance level 3 Reps/Minutes X15 Comments verbal cues to extend past body Wall slide Standing Exercise Name 1. with lift off and lower 2 on forearms Side right Reps/Minutes 1. X 3 2. X 10 Comments reports popping with single arm isometric shoulder IR Standing Exercise Name isometric reactive Side right Resistance level one band Reps/Minutes X15 X2 with folded pillow and towel roll X 15 each isometric shoulder er Standing Exercise Name isometric reactive Side right Resistance level one band Reps/Minutes X10 isometric shoulder abduction Standing Exercise Name abd, add isometric reactive Side right Resistance level one band Reps/Minutes X 15 each Comments verbal and visual cues isometric shoulder flexion Standing Exercise Name with UE at side flex and ext isometric reactive Side right Resistance level one band Reps/Minutes X15 each Comments verbal and visual cues Rows Standing Exercise Name Rows Side bilateral Resistance Green Reps/Minutes X15 Manual Therapy Treatment Consent Patient gave verbal consent for manual Yes treatment Soft Tissue Mobilization right shoulder Body Location scar tissue pec Mobilization Type Cross-Friction,Rolling Intensity/Depth Moderate Body Position Sidelying Comments and hooklying Joint Mobilizations Scapular Joint right scapula Direction into depression and adduction Grade III Body Position Sidelying Reps/Duration 10 each Comments monitored for pain PT-OP-T Assessment and Plan Start: 07/25/23 17:38 Freq: Status: Active Protocol: Document 11/18/23 12:58 AB (Rec: 11/18/23 14:38 AB [id number]) Physical Therapy Assessment Goals Two Impairment Severely limited AROM of right shoulder flexion (42?) and abduction (36?) Detention Goal (LTG) Pt to demonstrate improved AROM to 100? 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 Davon reports decreased clicking sensation with UE swing during ambulation post isometric exercises this session. Physical Therapy Plan Frequency and Duration Frequency of Treatment 2x/Week Plan of Care Start Date 10/14/23 Plan of Care End Date 12/14/23 Next Visit Focus/Plan Next Visit Plan AAROM, strengthening, in clinic isometrics in varying Range of motion, revisit tolerance to reclined shoulder flexion, High row and scapular depression with level 3 band to HEP
--- NOTE | 2023-11-25 16:28 | PT.OTN ---
Current Diagnoses Primary osteoarthritis, right shoulder (11/25/23) Pain in right shoulder (11/25/23) Stiffness of right shoulder, not elsewhere classified (11/25/23) Muscle weakness (generalized) (11/25/23) Physical Therapy Treatment Note PT-OP-A Visit Information Start: 07/25/23 17:38 Freq: Status: Active Protocol: Document 11/25/23 14:45 AB (Rec: 11/25/23 16:28 AB [id number]) Out-Patient Physical Therapy Visit Information Visit Information Visit Start Time 14:45 Visit Stop Time 15:16 Visit Number 20 Number of COOK CHEF Visits 4 Evaluation Information Evaluation Date 07/25/23 Precautions Precautions Post-op protocol: Begin ROM at 6 weeks Begin Strengthening at 12 weeks PT-OP-B Current Condition Start: 07/25/23 17:38 Freq: Status: Active Protocol: Document 07/25/23 14:40 DCW (Rec: 07/25/23 17:47 DCW [id number]) Current Condition History of Current Condition Onset Date 04/22/24 Current Complaints Right shoulder pain, stiffness s/p revised TSA History of Current Condition Pt is a 72 year old male presenting three months s/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 Pt is now three months s/p revision, admits he has not done anything strenuous, minimal mobility of right shoulder since surgery, other than mild PROM using left arm. Pt does note he lives on a boat, and has had to do a little rowing, but otherwise has not had any exercise. Notes he was told to do pendulums pre-surgery, but hasn't done any after. PT-OP-C Subjective Start: 07/25/23 17:38 Freq: Status: Active Protocol: Document 11/25/23 14:45 AB (Rec: 11/25/23 16:28 AB [id number]) OP-PT Subjective Patient Comments Patient Comments Patient reports he has not been performing HEP, AROM less than 90 deg right shoulder flexion start of session. PT-OP-K Range of Motion Start: 07/25/23 17:38 Freq: Status: Active Protocol: Document 10/14/23 12:00 DCW (Rec: 10/14/23 12:09 DCW [id number]) Shoulder Goniometric Range of Motion Shoulder Right Active Shoulder ROM WFL No Testing Position Sitting Flexion 76 Abduction 59 External Rotation at 0 degrees Abduction 40 Internal Rotation Behind Back (text) R SI PT-OP-M Strength Start: 07/25/23 17:38 Freq: Status: Active Protocol: Document 10/14/23 12:00 DCW (Rec: 10/14/23 12:09 DCW [id number]) Shoulder Strength Shoulder Manual Muscle Testing Right Flexion 2- Poor- Abduction (C5) 2- Poor- External Rotation 2- Poor- Internal Rotation 2- Poor- PT-OP-Q Treatments Start: 07/25/23 17:38 Freq: Status: Active Protocol: Document 11/25/23 14:45 AB (Rec: 11/25/23 16:28 AB [id number]) Cardio Equipment Upper Body Ergometer (UBE) Duration (Minutes) 3 RPM 60 Height 7 Other In standing, full revolutions1 min fwd 3 min retro Therapeutic Exercises Sidelying Exercises sidelying IR AROM Sidelying Exercise Name AROM Side right Reps/Minutes X3 Comments Verbal and tactile cues, not guanaco ER Sidelying Exercise Name Shoulder ER AROM Side right Reps/Minutes X15 Comments Verbal cues, monitored for popping and pain Standing Exercises high row Side bilateral Resistance level 3 Reps/Minutes X15 Comments verbal cues to extend past body isometric shoulder IR Standing Exercise Name isometric reactive Side right Resistance level one band Reps/Minutes X15 X2 with folded pillow and towel roll X 15 each isometric shoulder er Standing Exercise Name isometric reactive Side right Resistance level one band Reps/Minutes X10 isometric shoulder abduction Standing Exercise Name abd, add isometric reactive Side right Resistance level one band Reps/Minutes X 15 each Comments verbal and visual cues isometric shoulder flexion Standing Exercise Name with UE at side flex and ext isometric reactive Side right Resistance level one band Reps/Minutes X15 each Comments verbal and visual cues Rows Standing Exercise Name Rows Side bilateral Resistance Green Reps/Minutes X15 Manual Therapy Treatment Soft Tissue Mobilization right shoulder Body Location scar tissue pec Mobilization Type Cross-Friction,Rolling Intensity/Depth Moderate Body Position Sidelying Comments and hooklying Parascapulars Body Location R Parascapulars: Rhomboid, Infraspin, Supraspin, Pec Mobilization Type Sustained Pressure Intensity/Depth Moderate Body Position Sidelying Joint Mobilizations Scapular Joint right scapula Direction into depression and adduction Grade III Body Position Sidelying Reps/Duration 10 each Comments monitored for pain Manual Techniques manual resistance to shoulder adduction and depression Body Location right shoulder Body Position Sidelying Reps/Duration X10 PT-OP-T Assessment and Plan Start: 07/25/23 17:38 Freq: Status: Active Protocol: Document 11/25/23 14:45 AB (Rec: 11/25/23 16:28 AB [id number]) Physical Therapy Assessment Goals Two Impairment Severely limited AROM of right shoulder flexion (42?) and abduction (36?) 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 Davon reports decreased clicking sensation during swing phase ambulating out of session. Physical Therapy Plan Frequency and Duration Frequency of Treatment 2x/Week Plan of Care Start Date 10/14/23 Plan of Care End Date 12/14/23
--- NOTE | 2023-11-30 16:46 | PT.OTN ---
Current Diagnoses Primary osteoarthritis, right shoulder (11/30/23) Pain in right shoulder (11/30/23) Stiffness of right shoulder, not elsewhere classified (11/30/23) Muscle weakness (generalized) (11/30/23) Physical Therapy Treatment Note PT-OP-A Visit Information Start: 07/25/23 17:38 Freq: Status: Active Protocol: Document 11/30/23 16:00 DCW (Rec: 11/30/23 16:46 DCW [id number]) Out-Patient Physical Therapy Visit Information Visit Information Visit Type Treatment Note Visit Start Time 16:00 Visit Stop Time 16:45 Visit Number 21 Number of DIE PRESSER Visits 0 Evaluation Information Evaluation Date 07/25/23 Precautions Precautions Post-op protocol: Begin ROM at 6 weeks Begin Strengthening at 12 weeks PT-OP-B Current Condition Start: 07/25/23 17:38 Freq: Status: Active Protocol: Document 07/25/23 14:40 DCW (Rec: 07/25/23 17:47 DCW [id number]) Current Condition History of Current Condition Onset Date 04/22/24 Current Complaints Right shoulder pain, stiffness s/p revised TSA History of Current Condition Pt is a 72 year old male presenting three months s/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 Pt is now three months s/p revision, admits he has not done anything strenuous, minimal mobility of right shoulder since surgery, other than mild PROM using left arm. Pt does note he lives on a boat, and has had to do a little rowing, but otherwise has not had any exercise. Notes he was told to do pendulums pre-surgery, but hasn't done any after. PT-OP-C Subjective Start: 07/25/23 17:38 Freq: Status: Active Protocol: Document 11/30/23 16:00 DCW (Rec: 11/30/23 16:46 DCW [id number]) OP-PT Subjective Patient Comments Patient Comments There's been a lot more clicking when I'm moving. I think it's going to be a permanent thing. PT-OP-K Range of Motion Start: 07/25/23 17:38 Freq: Status: Active Protocol: Document 10/14/23 12:00 DCW (Rec: 10/14/23 12:09 DCW [id number]) Shoulder Goniometric Range of Motion Shoulder Right Active Shoulder ROM WFL No Testing Position Sitting Flexion 76 Abduction 59 External Rotation at 0 degrees Abduction 40 Internal Rotation Behind Back (text) R SI PT-OP-M Strength Start: 07/25/23 17:38 Freq: Status: Active Protocol: Document 10/14/23 12:00 DCW (Rec: 10/14/23 12:09 DCW [id number]) Shoulder Strength Shoulder Manual Muscle Testing Right Flexion 2- Poor- Abduction (C5) 2- Poor- External Rotation 2- Poor- Internal Rotation 2- Poor- PT-OP-Q Treatments Start: 07/25/23 17:38 Freq: Status: Active Protocol: Document 11/30/23 16:00 DCW (Rec: 11/30/23 16:46 DCW [id number]) Cardio Equipment Upper Body Ergometer (UBE) Duration (Minutes) 4 RPM 60 Height 7 Other In standing, full revolutions 2' fwd 2' retro Therapeutic Exercises Standing Exercises Flexion Standing Exercise Name Shoulder Flexion Side right Resistance Green Reps/Minutes 10 hold at end-range Adduction Standing Exercise Name Shoulder Adduction Side right Resistance Green Reps/Minutes 10 hold at end-range Extension Standing Exercise Name Shoulder Extension Side right Resistance Green Reps/Minutes 10 hold at end-range Rows Standing Exercise Name Rows Side bilateral Resistance Green Reps/Minutes X15 Manual Therapy Treatment Consent Patient gave verbal consent for manual Yes treatment Soft Tissue Mobilization right shoulder Body Location scar tissue pec Mobilization Type Cross-Friction,Rolling Intensity/Depth Moderate Body Position Sidelying Comments and hooklying Parascapulars Body Location R Parascapulars: Rhomboid, Infraspin, Supraspin, Pec Mobilization Type Sustained Pressure Intensity/Depth Moderate Body Position Sidelying Joint Mobilizations Scapular Joint right scapula Direction into depression and adduction Grade III Body Position Sidelying Reps/Duration 10 each Comments monitored for pain Manual Techniques manual resistance to shoulder adduction and depression Body Location right shoulder Body Position Sidelying Reps/Duration X10 PT-OP-T Assessment and Plan Start: 07/25/23 17:38 Freq: Status: Active Protocol: Document 11/30/23 16:00 DCW (Rec: 11/30/23 16:46 DCW [id number]) Physical Therapy Assessment Impairments Impairments Activity Tolerance,Functional Activities,Functional Mobility ,Integument,Pain,ROM,Soft Tissue Mobility,Strength Goals Two Impairment Severely limited AROM of right shoulder flexion (42?) and abduction (36?) [employer] 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 without popping/ pain. Physical Therapy Plan Frequency and Duration Frequency of Treatment 2x/Week Plan of Care Start Date 10/14/23 Plan of Care End Date 12/14/23 Therapeutic Interventions Therapeutic Interventions Home Exercise Program,Joint Mobilizations,Manual Therapy, Neuromuscular Re-education, Patient/Caregiver Education, Self-Care/Home Management,Soft Tissue Mobilization,Taping, Therapeutic Activities, Therapeutic Exercises Modalities Cold Pack/Ice Massage,Electric Stimulation,Hot Packs, Ultrasound Next Visit Focus/Plan Next Note Type Treatment Note Next Visit Plan AAROM, strengthening, in clinic isometrics in varying Range of motion, revisit tolerance to reclined shoulder flexion, High row and scapular depression with level 3 band to HEP
--- NOTE | 2023-12-06 17:27 | PT.OTN ---
Current Diagnoses Primary osteoarthritis, right shoulder (12/06/23) Pain in right shoulder (12/06/23) Stiffness of right shoulder, not elsewhere classified (12/06/23) Muscle weakness (generalized) (12/06/23) Physical Therapy Treatment Note PT-OP-A Visit Information Start: 07/25/23 17:38 Freq: Status: Active Protocol: Document 12/06/23 16:55 DCW (Rec: 12/06/23 17:27 DCW [id number]) Out-Patient Physical Therapy Visit Information Visit Information Visit Type Treatment Note Visit Note 10 minutes late Visit Start Time 16:55 Visit Stop Time 17:30 Visit Number 22 Number of LABORER COOK HOUSE Visits 0 Evaluation Information Evaluation Date 07/25/23 Precautions Precautions Post-op protocol: Begin ROM at 6 weeks Begin Strengthening at 12 weeks PT-OP-B Current Condition Start: 07/25/23 17:38 Freq: Status: Active Protocol: Document 07/25/23 14:40 DCW (Rec: 07/25/23 17:47 DCW [id number]) Current Condition History of Current Condition Onset Date 04/22/24 Current Complaints Right shoulder pain, stiffness s/p revised TSA History of Current Condition Pt is a 72 year old male presenting three months s/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 Pt is now three months s/p revision, admits he has not done anything strenuous, minimal mobility of right shoulder since surgery, other than mild PROM using left arm. Pt does note he lives on a boat, and has had to do a little rowing, but otherwise has not had any exercise. Notes he was told to do pendulums pre-surgery, but hasn't done any after. PT-OP-C Subjective Start: 07/25/23 17:38 Freq: Status: Active Protocol: Document 12/06/23 16:55 DCW (Rec: 12/06/23 17:27 DCW [id number]) OP-PT Subjective Patient Comments Patient Comments It's pretty sore today PT-OP-K Range of Motion Start: 07/25/23 17:38 Freq: Status: Active Protocol: Document 10/14/23 12:00 DCW (Rec: 10/14/23 12:09 DCW [id number]) Shoulder Goniometric Range of Motion Shoulder Right Active Shoulder ROM WFL No Testing Position Sitting Flexion 76 Abduction 59 External Rotation at 0 degrees Abduction 40 Internal Rotation Behind Back (text) R SI PT-OP-M Strength Start: 07/25/23 17:38 Freq: Status: Active Protocol: Document 10/14/23 12:00 DCW (Rec: 10/14/23 12:09 DCW [id number]) Shoulder Strength Shoulder Manual Muscle Testing Right Flexion 2- Poor- Abduction (C5) 2- Poor- External Rotation 2- Poor- Internal Rotation 2- Poor- PT-OP-Q Treatments Start: 07/25/23 17:38 Freq: Status: Active Protocol: Document 12/06/23 16:55 DCW (Rec: 12/06/23 17:27 DCW [id number]) Therapeutic Exercises Supine Exercises Horiz Abd Supine Exercise Name Horizontal Abduction Side bilateral Resistance Lv 2 ER/IR Supine Exercise Name Supine /c 45 deg Abduction Side right Equipment Used 3.3# Red Ball Sitting Exercises Chest Press Sitting Exercise Name Chest Press Side bilateral Resistance PVC /c 5# Standing Exercises PNF Standing Exercise Name D1/D2 UE PNF flexion Side right Resistance 1# Comments Seated Manual Therapy Treatment Consent Patient gave verbal consent for manual Yes treatment Soft Tissue Mobilization right shoulder Body Location scar tissue pec Mobilization Type Cross-Friction,Rolling Intensity/Depth Moderate Body Position Sidelying Comments and hooklying Parascapulars Body Location R Parascapulars: Rhomboid, Infraspin, Supraspin, Pec Mobilization Type Sustained Pressure Intensity/Depth Moderate Body Position Sidelying Joint Mobilizations Scapular Joint right scapula Direction into depression and adduction Grade III Body Position Sidelying Reps/Duration 10 each Comments monitored for pain Manual Techniques manual resistance to shoulder adduction and depression Body Location right shoulder Body Position Sidelying Reps/Duration X10 PROM right shoulder scaption Type R shoulder PROM Body Position Hooklying PT-OP-T Assessment and Plan Start: 07/25/23 17:38 Freq: Status: Active Protocol: Document 12/06/23 16:55 DCW (Rec: 12/06/23 17:27 DCW [id number]) Physical Therapy Assessment Impairments Impairments Activity Tolerance,Functional Activities,Functional Mobility ,Integument,Pain,ROM,Soft Tissue Mobility,Strength Goals Two Impairment Severely limited AROM of right shoulder flexion (42?) and abduction (36?) Biometrics Consultant Goal (LTG) Pt to demonstrate improved AROM to 100? 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 LTG Duration 12/14/23 - Improving One Impairment Pt does not have an appropriate home exercise program Short Term Goal (STG) Pt to be independent and compliant with an appropriate HEP STG Duration 11/13/23 - Improving Assessment Summary Assessment Noted improvement in pain following treatment, struggled with new activities of supine ER/IR and horizontal abduction Physical Therapy Plan Frequency and Duration Frequency of Treatment 2x/Week Plan of Care Start Date 10/14/23 Plan of Care End Date 12/14/23 Therapeutic Interventions Therapeutic Interventions Home Exercise Program,Joint Mobilizations,Manual Therapy, Neuromuscular Re-education, Patient/Caregiver Education, Self-Care/Home Management,Soft Tissue Mobilization,Taping, Therapeutic Activities, Therapeutic Exercises Modalities Cold Pack/Ice Massage,Electric Stimulation,Hot Packs, Ultrasound Next Visit Focus/Plan Next Note Type Treatment Note Next Visit Plan AAROM, strengthening, in clinic isometrics in varying Range of motion, revisit tolerance to reclined shoulder flexion, High row and scapular depression with level 3 band to HEP
--- NOTE | 2023-12-08 14:30 | PT.OTN ---
Current Diagnoses Primary osteoarthritis, right shoulder (12/08/23) Pain in right shoulder (12/08/23) Stiffness of right shoulder, not elsewhere classified (12/08/23) Muscle weakness (generalized) (12/08/23) Physical Therapy Treatment Note PT-OP-A Visit Information Start: 07/25/23 17:38 Freq: Status: Active Protocol: Document 12/08/23 13:45 DCW (Rec: 12/08/23 14:30 DCW [id number]) Out-Patient Physical Therapy Visit Information Visit Information Visit Type Treatment Note Visit Start Time 13:45 Visit Stop Time 14:30 Visit Number 23 Number of LINUX KERNEL ENGINEER Visits 0 Evaluation Information Evaluation Date 07/25/23 Precautions Precautions Post-op protocol: Begin ROM at 6 weeks Begin Strengthening at 12 weeks PT-OP-B Current Condition Start: 07/25/23 17:38 Freq: Status: Active Protocol: Document 07/25/23 14:40 DCW (Rec: 07/25/23 17:47 DCW [id number]) Current Condition History of Current Condition Onset Date 04/22/24 Current Complaints Right shoulder pain, stiffness s/p revised TSA History of Current Condition Pt is a 72 year old male presenting three months s/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 Pt is now three months s/p revision, admits he has not done anything strenuous, minimal mobility of right shoulder since surgery, other than mild PROM using left arm. Pt does note he lives on a boat, and has had to do a little rowing, but otherwise has not had any exercise. Notes he was told to do pendulums pre-surgery, but hasn't done any after. PT-OP-C Subjective Start: 07/25/23 17:38 Freq: Status: Active Protocol: Document 12/08/23 13:45 DCW (Rec: 12/08/23 14:30 DCW [id number]) OP-PT Subjective Patient Comments Patient Comments It's a little crunchy. PT-OP-K Range of Motion Start: 07/25/23 17:38 Freq: Status: Active Protocol: Document 10/14/23 12:00 DCW (Rec: 10/14/23 12:09 DCW [id number]) Shoulder Goniometric Range of Motion Shoulder Right Active Shoulder ROM WFL No Testing Position Sitting Flexion 76 Abduction 59 External Rotation at 0 degrees Abduction 40 Internal Rotation Behind Back (text) R SI PT-OP-M Strength Start: 07/25/23 17:38 Freq: Status: Active Protocol: Document 10/14/23 12:00 DCW (Rec: 10/14/23 12:09 DCW [id number]) Shoulder Strength Shoulder Manual Muscle Testing Right Flexion 2- Poor- Abduction (C5) 2- Poor- External Rotation 2- Poor- Internal Rotation 2- Poor- PT-OP-Q Treatments Start: 07/25/23 17:38 Freq: Status: Active Protocol: Document 12/08/23 13:45 DCW (Rec: 12/08/23 14:30 DCW [id number]) Cardio Equipment Upper Body Ergometer (UBE) Duration (Minutes) 4 RPM 60 Seat Position Standing Height 6 Other In standing, full revolutions 2' fwd 2' retro Therapeutic Exercises Supine Exercises ER/IR Supine Exercise Name Supine /c 45 deg Abduction Side right Equipment Used 3.3# Red Ball Sitting Exercises Chest Press Sitting Exercise Name Chest Press Side bilateral Resistance PVC /c 5# Standing Exercises PNF Standing Exercise Name D1/D2 UE PNF flexion Side right Resistance 1# Comments Seated Adduction Standing Exercise Name Shoulder Adduction Side right Resistance Green Reps/Minutes 10 hold at end-range Extension Standing Exercise Name Shoulder Extension Side bilateral Resistance Green Reps/Minutes 10 hold at end-range Rows Standing Exercise Name Rows Side bilateral Resistance Green Reps/Minutes X15 Manual Therapy Treatment Consent Patient gave verbal consent for manual Yes treatment Soft Tissue Mobilization right shoulder Body Location scar tissue pec Mobilization Type Cross-Friction,Rolling Intensity/Depth Moderate Body Position Sidelying Comments and hooklying Parascapulars Body Location R Parascapulars: Rhomboid, Infraspin, Supraspin, Pec Mobilization Type Sustained Pressure Intensity/Depth Moderate Body Position Sidelying Joint Mobilizations Scapular Joint right scapula Direction into depression and adduction Grade III Body Position Sidelying Reps/Duration 10 each Comments monitored for pain Manual Techniques manual resistance to shoulder adduction and depression Body Location right shoulder Body Position Sidelying Reps/Duration X10 PROM right shoulder scaption Type R shoulder PROM Body Position Hooklying PT-OP-T Assessment and Plan Start: 07/25/23 17:38 Freq: Status: Active Protocol: Document 12/08/23 13:45 DCW (Rec: 12/08/23 14:30 DCW [id number]) Physical Therapy Assessment Impairments Impairments Activity Tolerance,Functional Activities,Functional Mobility ,Integument,Pain,ROM,Soft Tissue Mobility,Strength Goals Two Impairment Severely limited AROM of right shoulder flexion (42?) and abduction (36?) Detention Goal (LTG) Pt to demonstrate improved AROM to 100? 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 During manual PROM, significantly improved pain- free ER/IR Physical Therapy Plan Frequency and Duration Frequency of Treatment 2x/Week Plan of Care Start Date 10/14/23 Plan of Care End Date 12/14/23 Therapeutic Interventions Therapeutic Interventions Home Exercise Program,Joint Mobilizations,Manual Therapy, Neuromuscular Re-education, Patient/Caregiver Education, Self-Care/Home Management,Soft Tissue Mobilization,Taping, Therapeutic Activities, Therapeutic Exercises Modalities Cold Pack/Ice Massage,Electric Stimulation,Hot Packs, Ultrasound Next Visit Focus/Plan Next Note Type Treatment Note Next Visit Plan AAROM, strengthening, in clinic isometrics in varying Range of motion, revisit tolerance to reclined shoulder flexion, High row and scapular depression with level 3 band to HEP
--- NOTE | 2023-12-12 16:01 | PT.OTN ---
Current Diagnoses Primary osteoarthritis, right shoulder (12/12/23) Pain in right shoulder (12/12/23) Stiffness of right shoulder, not elsewhere classified (12/12/23) Muscle weakness (generalized) (12/12/23) Physical Therapy Treatment Note PT-OP-A Visit Information Start: 07/25/23 17:38 Freq: Status: Active Protocol: Document 12/12/23 15:39 DCW (Rec: 12/12/23 16:00 DCW [id number]) Out-Patient Physical Therapy Visit Information Visit Information Visit Type Treatment Note Visit Note Arrived 24 minutes late Visit Start Time 15:39 Visit Stop Time 16:00 Visit Number 21 Number of CARPET INSPECTOR FINISHED Visits 0 Evaluation Information Evaluation Date 07/25/23 Precautions Precautions Post-op protocol: Begin ROM at 6 weeks Begin Strengthening at 12 weeks PT-OP-B Current Condition Start: 07/25/23 17:38 Freq: Status: Active Protocol: Document 07/25/23 14:40 DCW (Rec: 07/25/23 17:47 DCW [id number]) Current Condition History of Current Condition Onset Date 04/22/24 Current Complaints Right shoulder pain, stiffness s/p revised TSA History of Current Condition Pt is a 72 year old male presenting three months s/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 Pt is now three months s/p revision, admits he has not done anything strenuous, minimal mobility of right shoulder since surgery, other than mild PROM using left arm. Pt does note he lives on a boat, and has had to do a little rowing, but otherwise has not had any exercise. Notes he was told to do pendulums pre-surgery, but hasn't done any after. PT-OP-C Subjective Start: 07/25/23 17:38 Freq: Status: Active Protocol: Document 12/12/23 15:39 DCW (Rec: 12/12/23 16:00 DCW [id number]) OP-PT Subjective Patient Comments Patient Comments Apologizes for late arrival. Discussed desire to get complete HEP for review prior to discharge PT-OP-K Range of Motion Start: 07/25/23 17:38 Freq: Status: Active Protocol: Document 10/14/23 12:00 DCW (Rec: 10/14/23 12:09 DCW [id number]) Shoulder Goniometric Range of Motion Shoulder Right Active Shoulder ROM WFL No Testing Position Sitting Flexion 76 Abduction 59 External Rotation at 0 degrees Abduction 40 Internal Rotation Behind Back (text) R SI PT-OP-M Strength Start: 07/25/23 17:38 Freq: Status: Active Protocol: Document 10/14/23 12:00 DCW (Rec: 10/14/23 12:09 DCW [id number]) Shoulder Strength Shoulder Manual Muscle Testing Right Flexion 2- Poor- Abduction (C5) 2- Poor- External Rotation 2- Poor- Internal Rotation 2- Poor- PT-OP-Q Treatments Start: 07/25/23 17:38 Freq: Status: Active Protocol: Document 12/12/23 15:39 DCW (Rec: 12/12/23 16:00 [facility] [id number]) Manual Therapy Treatment Consent Patient gave verbal consent for manual Yes treatment Soft Tissue Mobilization right shoulder Body Location scar tissue pec Mobilization Type Cross-Friction,Rolling Intensity/Depth Moderate Body Position Sidelying Comments and hooklying Parascapulars Body Location R Parascapulars: Rhomboid, Infraspin, Supraspin, Pec Mobilization Type Sustained Pressure Intensity/Depth Moderate Body Position Sidelying Joint Mobilizations Scapular Joint right scapula Direction into depression and adduction Grade III Body Position Sidelying Reps/Duration 10 each Comments monitored for pain Manual Techniques manual resistance to shoulder adduction and depression Body Location right shoulder Body Position Sidelying Reps/Duration X10 PROM right shoulder scaption Type R shoulder PROM Body Position Hooklying PT-OP-T Assessment and Plan Start: 07/25/23 17:38 Freq: Status: Active Protocol: Document 12/12/23 15:39 DCW (Rec: 12/12/23 16:00 DC [id number]) Physical Therapy Assessment Impairments Impairments Activity Tolerance,Functional Activities,Functional Mobility ,Integument,Pain,ROM,Soft Tissue Mobility,Strength Goals Two Impairment Severely limited AROM of right shoulder flexion (42?) and abduction (36?) Half-Way Goal (LTG) Pt to demonstrate improved AROM to 100? 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 Discussed upcoming end of POC, will likely discharge. Therapist will provide pt with a pared- down HEP focusing on most important activities. Physical Therapy Plan Frequency and Duration Frequency of Treatment 2x/Week Plan of Care Start Date 10/14/23 Plan of Care End Date 12/14/23 Therapeutic Interventions Therapeutic Interventions Home Exercise Program,Joint Mobilizations,Manual Therapy, Neuromuscular Re-education, Patient/Caregiver Education, Self-Care/Home Management,Soft Tissue Mobilization,Taping, Therapeutic Activities, Therapeutic Exercises Modalities Cold Pack/Ice Massage,Electric Stimulation,Hot Packs, Ultrasound Next Visit Focus/Plan Next Note Type Treatment Note Next Visit Plan AAROM, strengthening, in clinic isometrics in varying Range of motion, revisit tolerance to reclined shoulder flexion, High row and scapular depression with level 3 band to HEP
--- NOTE | 2023-12-14 16:19 | PT.OTN ---
Current Diagnoses Primary osteoarthritis, right shoulder (12/14/23) Pain in right shoulder (12/14/23) Stiffness of right shoulder, not elsewhere classified (12/14/23) Muscle weakness (generalized) (12/14/23) Physical Therapy Treatment Note PT-OP-A Visit Information Start: 07/25/23 17:38 Freq: Status: Active Protocol: Document 12/14/23 14:21 AB (Rec: 12/14/23 16:16 AB [id number]) Out-Patient Physical Therapy Visit Information Visit Information Visit Type Treatment Note Visit Start Time 15:17 Visit Stop Time 15:58 Visit Number 22 Number of DATA PROCESSING AUDITOR Visits 1 Evaluation Information Evaluation Date 07/25/23 Precautions Precautions Post-op protocol: Begin ROM at 6 weeks Begin Strengthening at 12 weeks PT-OP-B Current Condition Start: 07/25/23 17:38 Freq: Status: Active Protocol: Document 07/25/23 14:40 DCW (Rec: 07/25/23 17:47 DCW [id number]) Current Condition History of Current Condition Onset Date 04/22/24 Current Complaints Right shoulder pain, stiffness s/p revised TSA History of Current Condition Pt is a 72 year old male presenting three months s/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 Pt is now three months s/p revision, admits he has not done anything strenuous, minimal mobility of right shoulder since surgery, other than mild PROM using left arm. Pt does note he lives on a boat, and has had to do a little rowing, but otherwise has not had any exercise. Notes he was told to do pendulums pre-surgery, but hasn't done any after. PT-OP-C Subjective Start: 07/25/23 17:38 Freq: Status: Active Protocol: Document 12/14/23 14:21 AB (Rec: 12/14/23 16:16 AB [id number]) OP-PT Subjective Patient Comments Patient Comments Patient reports the shoulder clicks a lot, but is not painful. Patient Questionnaires Quick Dash- Upper Extremity Quick Dash UE Score 77.27 Quick Dash UE Impairment 60 to 79% Impaired (Score 60- 79) PT-OP-K Range of Motion Start: 07/25/23 17:38 Freq: Status: Active Protocol: Document 12/14/23 14:21 AB (Rec: 12/14/23 16:16 AB [id number]) Shoulder Goniometric Range of Motion Shoulder Right Passive Testing Position Supine Flexion 150 Abduction 143 External Rotation at 0 degrees Abduction 83 Right Active Shoulder ROM WFL No Testing Position Standing Flexion 102 Extension 54 Abduction 74 External Rotation at 0 degrees Abduction 50 Internal Rotation Behind Back (text) R glute PT-OP-M Strength Start: 07/25/23 17:38 Freq: Status: Active Protocol: Document 10/14/23 12:00 DCW (Rec: 10/14/23 12:09 DCW [id number]) Shoulder Strength Shoulder Manual Muscle Testing Right Flexion 2- Poor- Abduction (C5) 2- Poor- External Rotation 2- Poor- Internal Rotation 2- Poor- PT-OP-Q Treatments Start: 07/25/23 17:38 Freq: Status: Active Protocol: Document 12/14/23 14:21 AB (Rec: 12/14/23 16:16 AB [id number]) Therapeutic Exercises Supine Exercises Flexion Supine Exercise Name dowel HEP Reps/Minutes X1 then X 2 attempts Comments limited by pain Sitting Exercises scap squeeze Sitting Exercise Name HEP Side bilateral Reps/Minutes 10 ER Sitting Exercise Name Shoulder ER HEP Side bilateral Resistance Lv 2 Reps/Minutes X10 Standing Exercises isometric shoulder IR Standing Exercise Name isometric IR HEP Side right Reps/Minutes 5X5 sec Comments verbal cues isometric shoulder er Standing Exercise Name isometric ER HEP Side right Reps/Minutes 5X5 sec Comments verbal cues isometric shoulder abduction Standing Exercise Name abd, add isometric HEP Side right Reps/Minutes 5X5 sec Comments verbal cues isometric shoulder flexion Standing Exercise Name HEP flex and ext isometric Side right Reps/Minutes 5X5 sec Comments verbal cues Extension Standing Exercise Name Shoulder Extension HEP Side bilateral Resistance Green Reps/Minutes X10 Rows Standing Exercise Name Rows HEP Side bilateral Resistance Green Reps/Minutes X10 Manual Therapy Treatment Soft Tissue Mobilization right shoulder Body Location scar tissue pec Mobilization Type Cross-Friction,Rolling Intensity/Depth Moderate Body Position Sidelying Comments and hooklying Parascapulars Body Location R Parascapulars: Rhomboid, Infraspin, Supraspin, Pec Mobilization Type Sustained Pressure Intensity/Depth Moderate Body Position Sidelying Joint Mobilizations Scapular Joint right scapula Direction into depression and adduction Grade III Body Position Sidelying Reps/Duration 10 each Comments monitored for pain Manual Techniques manual resistance to shoulder adduction and depression Body Location right shoulder Body Position Sidelying Reps/Duration X10 PT-OP-T Assessment and Plan Start: 07/25/23 17:38 Freq: Status: Active Protocol: Document 12/14/23 14:21 AB (Rec: 12/14/23 16:16 AB [id number]) Physical Therapy Assessment Goals Two Impairment Severely limited AROM of right shoulder flexion (42?) and abduction (36?) Cistern Room Working Supervisor Goal (LTG) Pt to demonstrate improved AROM to 100? 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 Patient verbalized aggreement with PT plan to be discharged from PT and was given the condensed HEP program after it was reviewed. Davon into this session with increased AROM for flexion abduction and ER right shoulder, IR continues to be significantly limited. Physical Therapy Plan Frequency and Duration Frequency of Treatment 2x/Week Plan of Care Start Date 10/14/23 Plan of Care End Date 12/14/23 Next Visit Focus/Plan Next Note Type Discharge Summary Next Visit Plan As per PT plan and in aggreement with PT, likely discharge from physical therapy.
--- NOTE | 2023-12-15 09:41 | PT.OPDS ---
Current Diagnoses Primary osteoarthritis, right shoulder (12/14/23) Pain in right shoulder (12/14/23) Stiffness of right shoulder, not elsewhere classified (12/14/23) Muscle weakness (generalized) (12/14/23) Visit Care Team Role Provider Type Doctor MD Talia Family Provider Non-Staff Specialty: Medical Address: Phone: Fax: Email: Donovan James MD Attending Provider Physician Referring Provider Specialty: Orthopedics Orthopedic Surgery Address: [address] [place] [address], [id number] Email: [email or web address] Visit Number Visit Number 22 Discharge Summary PT-OP-B Current Condition Start: 07/25/23 17:38 Freq: Status: Active Protocol: Document 07/25/23 14:40 DCW (Rec: 07/25/23 17:47 DCW [id number]) Current Condition History of Current Condition Onset Date 04/22/24 Current Complaints Right shoulder pain, stiffness s/p revised TSA History of Current Condition Pt is a 72 year old male presenting three months s/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 Pt is now three months s/p revision, admits he has not done anything strenuous, minimal mobility of right shoulder since surgery, other than mild PROM using left arm. Pt does note he lives on a boat, and has had to do a little rowing, but otherwise has not had any exercise. Notes he was told to do pendulums pre-surgery, but hasn't done any after. PT-OP-C Subjective Start: 07/25/23 17:38 Freq: Status: Active Protocol: Document 12/14/23 14:21 AB (Rec: 12/14/23 16:16 AB [id number]) OP-PT Subjective Patient Comments Patient Comments Patient reports the shoulder clicks a lot, but is not painful. Patient Questionnaires Quick Dash- Upper Extremity Quick Dash UE Score 77.27 Quick Dash UE Impairment 60 to 79% Impaired (Score 60- 79) PT-OP-K Range of Motion Start: 07/25/23 17:38 Freq: Status: Active Protocol: Document 12/14/23 14:21 AB (Rec: 12/14/23 16:16 AB [id number]) Shoulder Goniometric Range of Motion Shoulder Right Passive Testing Position Supine Flexion 150 Abduction 143 External Rotation at 0 degrees Abduction 83 Right Active Shoulder ROM WFL No Testing Position Standing Flexion 102 Extension 54 Abduction 74 External Rotation at 0 degrees Abduction 50 Internal Rotation Behind Back (text) R glute PT-OP-M Strength Start: 07/25/23 17:38 Freq: Status: Active Protocol: Document 10/14/23 12:00 DCW (Rec: 10/14/23 12:09 DCW [id number]) Shoulder Strength Shoulder Manual Muscle Testing Right Flexion 2- Poor- Abduction (C5) 2- Poor- External Rotation 2- Poor- Internal Rotation 2- Poor- PT-OP-T Assessment and Plan Start: 07/25/23 17:38 Freq: Status: Active Protocol: Document 12/15/23 09:36 DCW (Rec: 12/15/23 09:40 DCW [id number]) Physical Therapy Assessment Impairments Impairments Activity Tolerance,Functional Activities,Functional Mobility ,Integument,Pain,ROM,Soft Tissue Mobility,Strength Goals Two Impairment Severely limited AROM of right shoulder flexion (42?) and abduction (36?) Snf Goal (LTG) Pt to demonstrate improved AROM to 100? 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 Does continue to exhibit overall limitations in ROM and joint stability, although significant improvement from initial evaluation. Physical Therapy Plan Frequency and Duration Frequency of Treatment 2x/Week Plan of Care Start Date 10/14/23 Plan of Care End Date 12/14/23 Therapeutic Interventions Therapeutic Interventions Home Exercise Program,Joint Mobilizations,Manual Therapy, Neuromuscular Re-education, Patient/Caregiver Education, Self-Care/Home Management,Soft Tissue Mobilization,Taping, Therapeutic Activities, Therapeutic Exercises Modalities Cold Pack/Ice Massage,Electric Stimulation,Hot Packs, Ultrasound Discharge Physical Therapy Discharge Comments Discharge to independent HEP Next Visit Focus/Plan Next Note Type Discharge Summary
== END 2023-12-15 13:32 | disposition home or self-care (01) ==
LOC: PHYS 15:15
PROVIDERS: Referring Provider Orthopaedic Surgery; Visit Provider Orthopaedic Surgery
DX: M19.011 Primary osteoarthritis, right shoulder (principal); M25.611 Stiffness of right shoulder, not elsewhere classified; M25.511 Pain in right shoulder; M62.81 Muscle weakness (generalized)
CPT/HCPCS: 97110; 97140; 97161

== ENCOUNTER 2024-08-24 12:37 | Emergency (ER) | payer MEDICARE, MEDICAID, SELFPAY ==
[2023-04-22 16:51] VITALS: BMI 33.0
[2024-08-24 12:53] VITALS: BP 138/75; PULSE 72; RESP 18; TEMP 36.6; O2SAT 94; BMI 34.0
--- NOTE | 2024-08-24 13:33 | ED_ITS ---
HPI - Extremity Problem <Veronica Castro PA-C - Last Filed: 08/24/24 15:26> General Chief complaint: Extremity Problem,Nontraumatic Stated complaint: sent by [facility] r/o blood clot Time Seen by Provider: 08/24/24 13:33 Source: patient Mode of arrival: Ambulatory History of Present Illness HPI Narrative: Mr. 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 Patient reports his right ankle has been more painful and swollen than usual however he does suffer from some chronic right ankle pain secondary to an old traumatic injury and surgery with a broken screw that is in place. However he noticed some pain on the back of his right calf that he was concerned might be a blood clot or a varicose vein. Went to the walk-in clinic but was sent to the ED for ultrasound. Patient reports he has noticed some redness of his right ankle as well. He feels well otherwise and denies any fevers, chills, chest pain, shortness of breath or direct trauma or injury to the ankle. He has been walking but with some exacerbation of pain. No medications prior to arrival. PCP: Sharron Naidu, does not see her regularly he states. Related Data Home Medications Medication Instructions Recorded Confirmed methadone 10 mg/5 mL oral solution 185 mg PO DAILY 08/04/22 04/22/23 Previous Rx's Medication Instructions Recorded acetaminophen 325 mg tablet 650 mg (2 x 325 mg) PO Q6HR PRN 03/03/22 fever or pain #240 tabs ibuprofen 400 mg tablet 400 mg PO Q4HR PRN fever or pain 03/03/22 #120 tabs acetaminophen 325 mg tablet 650 mg (2 x 325 mg) PO Q6H PRN 04/23/23 Fever/Mild Pain (1-3) #60 tabs aspirin 81 mg tablet,delayed 81 mg PO BID #60 tabs 04/23/23 release oxycodone 5 mg tablet 5 mg PO Q3H PRN Pain, Moderate 04/23/23 (4-6) #30 tabs cephalexin 500 mg capsule 500 mg PO QID 7 days #28 caps 08/24/24 Allergies Allergy/AdvReac Type Severity Reaction Status Date / Time ketamine AdvReac Hallucinati Verified 03/07/23 11:59 ng Review of Systems <Veronica Castro PA-C - Last Filed: 08/24/24 15:26> Review of Systems ROS Unobtainable: All systems reviewed & are unremarkable except as noted in HPI and below Patient History <Veronica Castro PA-C - Last Filed: 08/24/24 15:26> Medical History Amputated finger PTSD (post-traumatic stress disorder) Anxiety Psoriasis HTN (hypertension) Dementia Epilepsy History of drug abuse Arthritis History of COVID-19 (07/2020) Surgical History 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 Elderly patient, in no acute distress. HEAD: Atraumatic. Normocephalic. CARDIOVASCULAR: Regular rate RESPIRATORY: ?Nonlabored respirations. ?Speaking in clear, full sentences. EXTREMITIES: Large hands and feet. Prior traumatic amputation of left 5th finger. On the right lower extremity, there is prior surgical scar overlying the medial malleolus. He has nonpitting edema of the right foot and ankle compared to the left. Mild erythema of the right ankle. No focal tenderness but there is diffuse medial tenderness and he also reports some tenderness on the back right calf. He is strong DP and PT pulses bilaterally and brisk capillary refill in the toes. NEURO: Alert and oriented, no facial asymmetry. Somewhat muffled speech. Sensation intact to light touch on dorsal and plantar aspect of bilateral feet. SKIN: Mild erythema and warmth of the right ankle, no rashes or wounds. Initial Vital Signs Initial Vital Signs: Vital Signs Temperature 97.8 F 08/24/24 12:53 Pulse Rate 72 08/24/24 12:53 Respiratory Rate 18 08/24/24 12:53 Blood Pressure 138/75 08/24/24 12:53 Pulse Oximetry 94 08/24/24 12:53 Oxygen Delivery Method Room Air 08/24/24 12:53 <Jordan Quiroga MD - Last Filed: 08/25/24 07:06> Initial Vital Signs Initial Vital Signs: Vital Signs Temperature 97.8 F 08/24/24 12:53 Pulse Rate 72 08/24/24 12:53 Respiratory Rate 18 08/24/24 12:53 Blood Pressure 138/75 08/24/24 12:53 Pulse Oximetry 94 08/24/24 12:53 Oxygen Delivery Method Room Air 08/24/24 12:53 Course <Veronica Castro PA-C - Last Filed: 08/24/24 15:26> Orders Ordered: Discontinued Medications Acetaminophen (Acetaminophen 325 Mg Tablet) 975 mg PO NOW ONE Stop: 08/24/24 13:42 Last Admin: 08/24/24 15:25 Dose: Not Given Documented By: RB Ibuprofen (Ibuprofen 400 Mg Tablet) 400 mg PO NOW ONE Stop: 08/24/24 13:42 Last Admin: 08/24/24 15:25 Dose: Not Given Documented By: RB Vital Signs Vital signs: Vital Signs - 8 hr 08/24/24 12:53 Temperature 97.8 F Pulse Rate 72 Respiratory Rate 18 Blood Pressure 138/75 Pulse Oximetry 94 Oxygen Delivery Method Room Air <Jordan Quiroga MD - Last Filed: 08/25/24 07:06> Orders Ordered: Discontinued Medications Acetaminophen (Acetaminophen 325 Mg Tablet) 975 mg PO NOW ONE Stop: 08/24/24 13:42 Last Admin: 08/24/24 15:25 Dose: Not Given Documented By: RB Ibuprofen (Ibuprofen 400 Mg Tablet) 400 mg PO NOW ONE Stop: 08/24/24 13:42 Last Admin: 08/24/24 15:25 Dose: Not Given Documented By: RB Vital Signs Vital signs: Vital Signs - 8 hr 08/24/24 12:53 Temperature 97.8 F Pulse Rate 72 Respiratory Rate 18 Blood Pressure 138/75 Pulse Oximetry 94 Oxygen Delivery Method Room Air MDM - Extremity (Nontraumatic) <Veronica Castro PA-C - Last Filed: 08/24/24 15:26> Medical Records Attestation: I reviewed the patient's medical records. Imaging Data RLE Vascular US: Radiologist's Impression: PROCEDURE: US PERIPH VENOUS LOW EXTREM RT INDICATIONS: RLE swelling pain TECHNIQUE: Real-time imaging, as well as color and pulse Doppler interrogation, were performed of the lower extremity deep veins from the inguinal ligament to the popliteal fossa, with documentation of the visualized calf veins. COMPARISON: None. FINDINGS: The common femoral, femoral, popliteal, and the visualized calf veins are normally compressible, and free of intraluminal thrombus. Color and pulse Doppler demonstrate normal phasic intraluminal flow. There is normal augmentation response to distal compression maneuver. A popliteal cyst is seen measures 3.1 x 0.9 x 2.3 cm in size. IMPRESSION: No findings of lower extremity deep venous thrombosis. Right Ankle X-Ray: Radiologist's Impression: PROCEDURE: XR ANKLE RT MIN 3V INDICATIONS: right ankle pain and swelling; known broken screw TECHNIQUE: 3 views of the ankle were acquired. COMPARISON: [facility], , XR ANKLE RT MIN 3V, 04/11/2021, 12:52. FINDINGS: Bones: Again noted are postsurgical changes in distal tibia from prior surgical fusion. Near complete bony fusion at tibiotalar joint is seen. No definite hardware loosening or failure. No acute fracture or dislocation. Osteoarthritic changes are noted throughout rest of the midfoot and hindfoot. Soft tissues: Linear density is seen in soft tissue over lateral aspect of hindfoot at the level of lateral calcaneal tubercle. Diffuse ankle soft tissue swelling is seen. No tibiotalar joint effusion. Achilles tendon appears normal. IMPRESSION: Postsurgical changes are noted in distal tibia. Near complete bony fusion at tibiotalar joint. No acute fracture or dislocation. No definite hardware loosening or failure. Osteoarthritic changes throughout rest of the midfoot and hindfoot. Possible linear low foreign body in soft tissue over lateral aspect of hindfoot unchanged from 2020 study. 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 Differential diagnosis includes but is not limited to right lower extremity cellulitis, DVT, arthritis, gout, hardware issue, etc. On exam the patient is in no acute distress, nontoxic-appearing, all vital signs within normal limits. His right lower extremity is neurovascularly intact, it is swollen and slightly erythematous with mild tenderness on the medial ankle and the right calf. We will obtain x-ray of ankle to further evaluate bony architecture, he does have a known broken screw in place, him and his surgeon Dr. Kidd made the decision to keep it in place for now. Venous ultrasound right lower extremity ordered. We will treat pain with ibuprofen Tylenol. Right ankle x-ray reveals postsurgical changes noted in the distal tibia. Knee complete bony fusion of the tibiotalar joint. No acute fracture or dislocation. No definite hardware loosening or failure. There is osteoarthritic changes throughout the rest of the midfoot and hindfoot. Possible linear low foreign body in the soft tissue over lateral aspect of hindfoot unchanged from 2020. Right lower extremity vascular ultrasound reveals no deep venous thrombosis, there is a popliteal cyst. Patient requesting discharge home. Concerned for possible developing right lower extremity cellulitis, we will treat with Keflex 4 times a day x7 days, symptoms may also be because of popliteal cyst and arthritis. Recommended strict rice therapy, follow up with PCP/ortho, strict ED return precautions discussed. Patient stable for discharge home, ambulates out of the ED. Discharge Plan Departure Patient Disposition: Home Clinical Impression: Cellulitis of right leg, Unruptured cyst of right popliteal space Instructions: DI for Cellulitis -- Adult Activity Restrictions/Additional Instructions: Thank you for coming to the ER. Today we are treating with antibiotics for skin infection of the right lower leg. Your ultrasound shows you do not have a blood clot. You do have a cyst behind the right knee. You also do have a lot of arthritis in the right ankle. Please use RICE therapy for your pain in addition to ibuprofen/acetaminophen. Rest the painful area. Ice the area of pain/swelling for at least 15 minutes, 4x a day. Compress the area of swelling using a brace, wrap, or splint if applied. Elevate the painful or swollen extremity by supporting it above the level of the heart with pillows when sitting or laying. Please follow up with your primary care doctor within the next 2-3 days for ER follow-up. (If you do not have a PCP you can call [phone]. ?to schedule an appointment with an [facility] Primary Care Provider) IF YOU DEVELOP ANY NEW OR WORSENING SYMPTOMS, RETURN TO THE ER! Please read the attached instructions, they highlight more specific treatments and interventions for you at home. Thank you for letting me participate in your care, Veronica Castro PA-C Prescriptions: New cephalexin 500 mg capsule 500 mg PO QID 7 Days Qty: 28 0RF No Action methadone 10 mg/5 mL Solution 185 mg PO DAILY acetaminophen 325 mg Tablet 650 mg PO Q6HR PRN (Reason: fever or pain) Qty: 240 0RF ibuprofen 400 mg Tablet 400 mg PO Q4HR PRN (Reason: fever or pain) Qty: 120 0RF acetaminophen 325 mg Tablet 650 mg PO Q6H PRN (Reason: Fever/Mild Pain (1-3)) Qty: 60 0RF aspirin 81 mg Tablet,Delayed Release (Dr/Ec) 81 mg PO BID Qty: 60 0RF oxycodone 5 mg Tablet 5 mg PO Q3H PRN (Reason: Pain, Moderate (4-6)) Qty: 30 0RF Referrals: Sharron Naidu MD [Primary Care Provider] - Stand Alone Forms: Patient Portal/API/Survey ED Sign-out <Jordan Quiroga MD - Last Filed: 08/25/24 07:06> [facility]: I was immediately available in the department for consultation. ?This documentation has been reviewed and I agree with assessment and plan. Supervised by Jordan Quiroga MD
--- NOTE | 2024-08-24 13:41 | DI.US.S_ITS ---
PROCEDURE: US PERIPH VENOUS LOW EXTREM RT INDICATIONS: RLE swelling pain TECHNIQUE: Real-time imaging, as well as color and pulse Doppler interrogation, were performed of the lower extremity deep veins from the inguinal ligament to the popliteal fossa, with documentation of the visualized calf veins. COMPARISON: None. FINDINGS: The common femoral, femoral, popliteal, and the visualized calf veins are normally compressible, and free of intraluminal thrombus. Color and pulse Doppler demonstrate normal phasic intraluminal flow. There is normal augmentation response to distal compression maneuver. A popliteal cyst is seen measures 3.1 x 0.9 x 2.3 cm in size. IMPRESSION: No findings of lower extremity deep venous thrombosis. Dictated by: Michele Leavitt M.D. on 08/24/2024 at 14:32 Approved by: Michele Leavitt M.D. on 08/24/2024 at 14:32
--- NOTE | 2024-08-24 13:41 | DI.RAD.S_ITS ---
PROCEDURE: XR ANKLE RT MIN 3V INDICATIONS: right ankle pain and swelling; known broken screw TECHNIQUE: 3 views of the ankle were acquired. COMPARISON: [facility], [place], XR ANKLE RT MIN 3V, 04/11/2021, 12:52. FINDINGS: Bones: Again noted are postsurgical changes in distal tibia from prior surgical fusion. Near complete bony fusion at tibiotalar joint is seen. No definite hardware loosening or failure. No acute fracture or dislocation. Osteoarthritic changes are noted throughout rest of the midfoot and hindfoot. Soft tissues: Linear density is seen in soft tissue over lateral aspect of hindfoot at the level of lateral calcaneal tubercle. Diffuse ankle soft tissue swelling is seen. No tibiotalar joint effusion. Achilles tendon appears normal. IMPRESSION: Postsurgical changes are noted in distal tibia. Near complete bony fusion at tibiotalar joint. No acute fracture or dislocation. No definite hardware loosening or failure. Osteoarthritic changes throughout rest of the midfoot and hindfoot. Possible linear low foreign body in soft tissue over lateral aspect of hindfoot unchanged from 2020 study. Dictated by: Michele Leavitt M.D. on 08/24/2024 at 14:15 Approved by: Michele Leavitt M.D. on 08/24/2024 at 14:18
== END 2024-08-24 15:26 | disposition home or self-care (01) ==
PROVIDERS: Emergency Provider Physician Assistant; PCP Urology
DX: L03.115 Cellulitis of right lower limb (principal); M71.21 Synovial cyst of popliteal space [Baker], right knee
CPT/HCPCS: 73610; 93971; 99281; 99283

== ENCOUNTER 2024-09-07 08:06 | Emergency (ER) | payer MEDICARE, MEDICAID, SELFPAY ==
[2023-04-22 16:51] VITALS: BMI 33.0
[2024-09-07 08:18] VITALS: BP 156/88; PULSE 65; RESP 16; TEMP 36.9; O2SAT 98; BMI 36.2
[2024-09-07 08:31] VITALS: PULSE 59; O2SAT 94
[2024-09-07 09:00] VITALS: BP 132/65; PULSE 55; O2SAT 93
--- NOTE | 2024-09-07 09:08 | DI.US.S_ITS ---
PROCEDURE: US PERIP VENOUS LOW EXTREM RT INDICATIONS: swelling TECHNIQUE: Real-time imaging, as well as color and pulse Doppler interrogation, were performed of the lower extremity deep veins from the inguinal ligament to the popliteal fossa, with documentation of the visualized calf veins. COMPARISON: [facility], , [facility] VENOUS LOW EXTREM RT, 08/24/2024, 14:11. FINDINGS: The common femoral, femoral, popliteal, and the visualized calf veins are normally compressible, and free of intraluminal thrombus. Color and pulse Doppler demonstrate normal phasic intraluminal flow. There is normal augmentation response to distal compression maneuver. IMPRESSION: Negative right lower extremity duplex venous ultrasound for DVT. Dictated by: Jose Sy M.D. on 09/07/2024 at 10:05 Approved by: Jose Sy M.D. on 09/07/2024 at 10:06
--- NOTE | 2024-09-07 09:25 | PC.NURSE ---
Pt has 2+ pulses to dorsal ped and tib post. Has 1-2+ swelling to RLE.
[2024-09-07 09:30] VITALS: BP 138/72; PULSE 60; O2SAT 93
--- NOTE | 2024-09-07 09:41 | ED_ITS ---
HPI - Extremity Problem General Chief complaint: Extremity Problem,Nontraumatic Stated complaint: Right leg pain Time Seen by Provider: 09/07/24 09:22 Source: patient, RN notes reviewed and old records reviewed Mode of arrival: Ambulatory Limitations: no limitations History of Present Illness HPI Narrative: 74-year-old male history of traumatic amputation left 5th finger, prior right ankle trauma with hardware on methadone. Patient presents with complaint of right lower extremity pain has been persistent was seen here on 08/24/2024. States pain has been persistent has not improved did take oral antibiotics until completed. He does not noticed a lot of change. He states his told him his leg look red but he never thought that it had any color changes. He does note it feels more swollen. He states it has been going on for some time. Patient states it was painful to weightbear it is mostly in the ankle but does hurt a little bit in the calf when being pushed on for imaging and evaluation. Patient denies fevers, no chest pain, no shortness of breath no nausea or vomiting no other GI or urinary symptoms. He notes methadone is his only daily medication. Reports it history of allergy or adverse reaction to ketamine with significant hallucinations and sounds like emergence reaction. Former smoker, denies regular alcohol, uses marijuana denies any other recreational drugs denies any injection or IV drugs. He states symptoms are really improving but not getting any worse. He follows with [facility] for his care. Related Data Home Medications Medication Instructions Recorded Confirmed methadone 10 mg/5 mL oral solution 185 mg PO DAILY 08/04/22 04/22/23 Previous Rx's Medication Instructions Recorded acetaminophen 325 mg tablet 650 mg (2 x 325 mg) PO Q6HR PRN 03/03/22 fever or pain #240 tabs ibuprofen 400 mg tablet 400 mg PO Q4HR PRN fever or pain 03/03/22 #120 tabs acetaminophen 325 mg tablet 650 mg (2 x 325 mg) PO Q6H PRN 04/23/23 Fever/Mild Pain (1-3) #60 tabs aspirin 81 mg tablet,delayed 81 mg PO BID #60 tabs 04/23/23 release oxycodone 5 mg tablet 5 mg PO Q3H PRN Pain, Moderate 04/23/23 (4-6) #30 tabs Allergies Allergy/AdvReac Type Severity Reaction Status Date / Time ketamine AdvReac Hallucinati Verified 03/07/23 11:59 ng Review of Systems Review of Systems ROS Unobtainable: All systems reviewed & are unremarkable except as noted in HPI and below Patient History Medical History Amputated finger PTSD (post-traumatic stress disorder) Anxiety Psoriasis HTN (hypertension) Dementia Epilepsy History of drug abuse Arthritis History of COVID-19 (07/2020) Surgical History 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) History of right knee surgery History of left knee surgery History of surgery History of ankle surgery History of thoracic surgery History of total left knee replacement (03/02/22) Social History household members: significant other Smoking Status: Former smoker alcohol intake: former Smoking Status: Former smoker alcohol intake frequency: 0-2 drinks per day Exam Narrative Exam Narrative: GENERAL: Alert and oriented x three, mild distress HEENT: Head normocephalic, atraumatic, EOMI, pupils reactive, face symmetric, moist mucous membranes NECK: Supple, full range of motion CARDIOVASCULAR: Regular rate and rhythm without murmurs, rubs or gallops. RESPIRATORY: Breath sounds equal bilaterally, no wheezes rales or rhonchi. ABDOMEN: Soft, nontender. Normoactive bowel sounds all 4 quadrants. No guarding or rebound, rigidity, no mass : No CVA tenderness EXTREMITIES: Normal range of motion, no clubbing or edema. Neurovascularly intact. Patient has healed traumatic amputation of 5th digit on his left hand. Lower extremities overall are equal in circumference. Patient tender with calf squeeze. Has no bony tenderness of the thigh, knee, tib-fib, has a little bit of tenderness over the medial malleolus. No tenderness of the bones of the foot or toe.. He was no warmth, no erythema no cyanosis or pallor. Positive dorsalis pedis pulses bilaterally. Sensation throughout. Full range of motion. NEUROLOGICAL: Cranial nerves II through XII grossly intact. Moving all extremities SKIN: Warm, dry, no petechiae, no rashes or lesions. Initial Vital Signs Initial Vital Signs: Vital Signs Temperature 98.5 F 09/07/24 08:18 Pulse Rate 65 09/07/24 08:18 Respiratory Rate 16 09/07/24 08:18 Blood Pressure 156/88 H 09/07/24 08:18 Pulse Oximetry 98 09/07/24 08:18 Oxygen Delivery Method Room Air 09/07/24 08:18 Course Orders Ordered: ED Orders 09/07/24 09:50 XR ankle RT min 3V Stat Vital Signs Vital signs: Vital Signs - 8 hr 09/07/24 08:18 09/07/24 08:31 09/07/24 09:00 Temperature 98.5 F Pulse Rate 65 59 L Respiratory Rate 16 Blood Pressure 156/88 H 132/65 Pulse Oximetry 98 94 Oxygen Delivery Method Room Air 09/07/24 09:00 09/07/24 09:30 09/07/24 09:30 Temperature Pulse Rate 55 L 60 Respiratory Rate Blood Pressure 138/72 Pulse Oximetry 93 93 Oxygen Delivery Method 09/07/24 10:00 09/07/24 10:00 Temperature Pulse Rate 54 L Respiratory Rate Blood Pressure 137/64 Pulse Oximetry 95 Oxygen Delivery Method MDM - Extremity (Nontraumatic) MDM Narrative Medical decision making narrative: DVT ultrasound was repeated although negative on 08/24/2024 for persistent pain and reported swelling. Patient had x-ray on 08/24/2024 which showed postsurgical changes and distal tibia near complete fusion at tibiotalar joint. No fracture or dislocation no definite hardware loosening or failure. Osteoarthritic changes throughout the rest of the midfoot and hindfoot. Possible linear low foreign body in soft tissue over the lateral aspect of the hindfoot unchanged from 2020 study. X-ray was repeated to see if there was any changes. If no changes I suspect maybe related to his prior orthopedic injuries. Patient does note a little bit of neuropathy type changes over time in both lower extremities but notes pain seems to be very localized to the ankle and worse with weight-bearing and movement. Patient has saw Dr. Kidd remotely for his prior ankle/tib-fib surgeries. States he had these screws replaced and removed several times and 1 of them broke up and has stayed. We will have patient follow up with walking boot, he has crutches and a walker at home weight-bearing as tolerated with Orthopedic surgery at both DVT ultrasound and x-ray are negative for acute change. Discharge Plan Departure Patient Disposition: Home Clinical Impression: Ankle pain, right Instructions: DI for Ankle Pain Activity Restrictions/Additional Instructions: Follow up with your physician for recheck, he was suspect some of your symptoms maybe related to your prior injuries in your ankle and leg. I would recommend follow up with Orthopedic surgery. Contacts included below for Dr. Kidd who you have seen in the past. Your imaging does show your postsurgical changes, the hardware appears to be stable. There are degenerative changes in the subtalar, talonavicular and calcaneocuboid joints. There is some soft tissue edema any radiopaque foreign body lateral to your heel or calcaneus which has been stable in location. You may weightbear as tolerated. Splint Care: Keep splint clean and dry. Elevated affected body part to decrease swelling. OK to use ice pack on the affected body part. Use for 15-20 minutes each time, for 5-6x per day. If you develop worsening pain, numbness, tingling, discoloration of the affected body part, fevers, warmth, redness, cyanosis or pallor return to the Emergency Department for read these or any new or worsening symptoms. Prescriptions: No Action methadone 10 mg/5 mL Solution 185 mg PO DAILY acetaminophen 325 mg Tablet 650 mg PO Q6HR PRN (Reason: fever or pain) Qty: 240 0RF ibuprofen 400 mg Tablet 400 mg PO Q4HR PRN (Reason: fever or pain) Qty: 120 0RF acetaminophen 325 mg Tablet 650 mg PO Q6H PRN (Reason: Fever/Mild Pain (1-3)) Qty: 60 0RF aspirin 81 mg Tablet,Delayed Release (Dr/Ec) 81 mg PO BID Qty: 60 0RF oxycodone 5 mg Tablet 5 mg PO Q3H PRN (Reason: Pain, Moderate (4-6)) Qty: 30 0RF Referrals: Sharron Naidu MD [Primary Care Provider] - Ina Kidd MD [Physician] - Stand Alone Forms: Patient Portal/API/Survey
--- NOTE | 2024-09-07 09:50 | DI.RAD.S_ITS ---
PROCEDURE: XR ANKLE RT MIN 3V INDICATIONS: R ankle pain, no swelling or skin changes. hx of broken scr TECHNIQUE: 3 views of the ankle were acquired. COMPARISON: [facility], CR, XR ANKLE RT MIN 3V, 08/24/2024, 13:39. [facility], CR, XR ANKLE RT MIN 3V, 04/11/2021, 12:52. FINDINGS: Bones: Postsurgical changes are again seen in the ankle and hindfoot. There is solid osseous fusion across the distal tibiofibular articulation and the mortise joint. Two screw fragments are seen within the distal tibia. Additional intact metal screw is seen extending from the anterior distal tibia to the likely posterior medial talus versus calcaneus. Subtalar joint line is visualized with superimposed degenerative changes. Degenerative changes are seen at the talonavicular and calcaneocuboid joints. Soft tissues: Mild soft tissue edema surrounding the lower leg and ankle. A linear 12 mm radiopaque foreign body is seen in the soft tissues lateral to the calcaneus that does not appear significantly changed when compared to the prior exam. IMPRESSION: 1. Postsurgical changes from prior mortise joint arthrodesis with hardware components in stable positions. 2. 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 3. Nonspecific soft tissue edema. Stable linear radiopaque foreign body again seen in the soft tissues lateral to the calcaneus. Approved by: Ayo Doty M.D. on 09/07/2024 at 10:20
[2024-09-07 10:00] VITALS: BP 137/64; PULSE 54; O2SAT 95
[2024-09-07 10:30] VITALS: BP 124/67; PULSE 57; O2SAT 96
== END 2024-09-07 10:45 | disposition home or self-care (01) ==
PROVIDERS: Emergency Provider Emergency Medicine; PCP Urology
DX: M25.571 Pain in right ankle and joints of right foot (principal); Z98.890 Other specified postprocedural states
CPT/HCPCS: 73610; 93971; 99281; 99283

== ENCOUNTER → 2024-09-22 11:05 | Outpatient (CLI) | payer MEDICARE, MEDICAID, SELFPAY ==
[2023-04-22 16:51] VITALS: BMI 33.0
--- NOTE | 2024-09-22 12:48 | DI.ECHO.S_ITS ---
[facility] : : [address] : : [place] : : [id number] : : Phone: [phone] Echocardiogram Report + + :Name: ALISHA AN Study Date: 09/22/2024 Height: 67.5 in: :[facility] ReadingLocation: Weight: 235 lb : : Gender: Male BSA: 2.2 m2 : :: 1950 Age: 74 yrs BP: 134/81 mmHg: :Reason For Study: ABNORMAL EKG : :Ordering Physician: ELVIA, : :DENIZ Burciaga MD Performed By: Tootie Desai : :Referring: DENIZ GAN MD : + + Interpretation Summary The ejection fraction is estimated to be 55-60%. Diastolic parameters suggest probable normal left ventricular diastolic function and normal filling pressures. The right ventricle is normal in size and function. There is mild tricuspid regurgitation. The right ventricular systolic pressure is estimated to be at least 26 mmHg based on an estimated right atrial pressure of 3 mm Hg. The ascending aorta is mildly enlarged. Procedure: A two-dimensional transthoracic echocardiogram with color flow and Doppler was performed. The study quality was technically adequate. There is no prior echocardiogram noted for this patient. The patient was in sinus bradycardia with heart rates between 59-65 bpm during the exam. Left Ventricle: The left ventricle is normal in size. There is normal left ventricular wall thickness. The ejection fraction is estimated to be 55-60%. Diastolic parameters suggest probable normal left ventricular diastolic function and normal filling pressures. Right Ventricle: The right ventricle is normal in size and function. Atria: The left atrial size is normal. Right atrial size is normal. There is no Doppler evidence for an interatrial shunt. Mitral Valve: The mitral valve leaflets appear to open well. There is no mitral regurgitation noted. Aortic Valve: The aortic valve is trileaflet. The aortic valve opens well. There is no aortic valve stenosis. No aortic regurgitation is present. Tricuspid Valve: The tricuspid valve leaflets are thin and pliable. There is mild tricuspid regurgitation. The right ventricular systolic pressure is estimated to be at least 26 mmHg based on an estimated right atrial pressure of 3 mm Hg. Pulmonic Valve: The pulmonic valve is not well seen, but is grossly normal. There is no pulmonic valvular regurgitation. Great Vessels: The aortic root is mildly dilated. The ascending aorta is mildly enlarged. The IVC is of normal diameter and collapses greater than 50% with a sniff. This suggests a low right atrial pressure of 3 mm Hg. Pericardium/ Pleura There is no pericardial effusion. There is no pleural effusion. MMode/2D Measurements & Calculations LVIDd: 5.4 cm Ao root diam: 4.3 cm LVIDs: 3.5 cm asc Aorta Diam: 4.2 cm FS: 35.1 % Ao Arch Diam (Prox Trans): 3.9 cm IVSd: 1.0 cm LVPWd: 1.1 cm LV nixon. diameter/BSA (cm/m^2): 2.5 LV sys. diameter/BSA (cm/m^2): 1.6 LA A2 area: 21.7 cm2 RA long axis: 5.8 cm LA A4 area: 21.0 cm2 RA area: 20.3 cm2 LA length (vol): 6.0 cm RA vol: 60.0 ml LA vol: 64.6 ml RA : 27.5 ml/m2 LA vol index: 29.6 ml/m2 IVC diam: 1.6 cm RVD1 (basal): 4.0 cm RVD2 (mid): 3.6 cm TAPSE: 2.1 cm Doppler Measurements & Calculations Ao V2 max: 129.6 cm/sec LVOT Max Alfa: 92.2 cm/sec Ao V2 mean: 88.2 cm/sec LV V1 max P.4 mmHg Ao max P.7 mmHg LV V1 VTI: 20.5 cm Ao mean P.5 mmHg sev ratio: 0.76 Ao V2 VTI: 26.9 cm MV E max alfa: 82.0 cm/sec TR max alfa: 238.2 cm/sec MV A max alfa: 78.2 cm/sec TR max P.7 mmHg MV E/A: 1.0 PA V2 max: 92.6 cm/sec Med Peak E' Alfa: 9.1 cm/sec PA V2 mean: 65.3 cm/sec E/E' med: 9.0 PA mean P.9 mmHg Lat Peak E' Alfa: 8.6 cm/sec PA pr(Accel): 7.1 mmHg E/E' lat: 9.5 E/e' average: 9.3 MV dec time: 0.21 sec Reading Physician:08:47 PM
== END ==
PROVIDERS: PCP Urology; Referring Provider Physician Assistant; Visit Provider Urology
DX: R94.31 Abnormal electrocardiogram [ECG] [EKG] (principal); I07.1 Rheumatic tricuspid insufficiency; I77.810 Thoracic aortic ectasia; R00.1 Bradycardia, unspecified; I77.89 Other specified disorders of arteries and arterioles
CPT/HCPCS: 93306